=== PATIENT | female | born 1940 | race Caucasian/White ===

== ENCOUNTER 2021-03-31 11:01 | Outpatient (REF) | payer MEDICARE, OTHER, SELFPAY ==
[2021-03-31 14:16] LABS: Alanine Aminotransferase 13 U/L (0-31); Aspartate Amino Transferase 17 U/L (5-31); Cholesterol 135 mg/dL; HDL Cholesterol 47 mg/dL; LDL Cholesterol Calculated 67 mg/dl; Triglycerides 107 mg/dL
== END 2021-03-31 11:02 | disposition home or self-care (01) ==
LOC: HO.HMGCLDS 11:01
PROVIDERS: PCP Internal Medicine; Visit Provider Internal Medicine Cardiovascular Disease
DX: E78.5 Hyperlipidemia, unspecified (principal)
CPT/HCPCS: 36415; 80061; 84450; 84460

== ENCOUNTER 2021-04-17 09:12 | Outpatient (REF) | payer MEDICARE, OTHER, SELFPAY ==
[2021-04-17 12:31] LABS: Hematocrit 33.4 % (37.0-47.0); Hemoglobin 10.4 g/dl (12.0-16.0); Mean Corpuscular HGB Conc 31.1 g/dl (31.0-35.0); Mean Corpuscular Hemoglobin 27.2 pg (27.0-33.0); Mean Corpuscular Volume 87.4 fL (80.0-98.0); Red Blood Count 3.82 X10*6/uL (4.20-5.50); Red Cell Distribution Width 15.9 % (11.0-16.0); White Blood Count 26.1 X10*3/uL (4.8-10.8)
[2021-04-17 12:49] LABS: Alanine Aminotransferase 14 U/L (0-31); Albumin Level 4.6 g/dL (3.5-5.0); Alkaline Phosphatase 79 U/L (39-117); Anion Gap 15 (12-20); Aspartate Amino Transferase 18 U/L (5-31); Bilirubin Total 0.5 mg/dL (0.0-1.0); Blood Urea Nitrogen 44 mg/dL (9-16); C Reactive Protein 0.16 mg/dL (< or = 0.50); Calcium 9.3 mg/dL (8.4-10.2); Carbon Dioxide 20 mmol/L (22-29); Chloride 114 mmol/L (96-108); Estimated Glomerular Filt Rate 26; Glucose Fasting 90 mg/dL (60-99); Potassium 4.6 mmol/L (3.3-5.1); Sodium 144 mmol/L (135-145); Total Protein 7.7 g/dL (6.5-8.0)
[2021-04-17 12:51] LABS: Platelet Count 75 X10*3/uL (160-400)
[2021-04-17 13:06] LABS: TSH reflex Free T4 3.52 uIU/mL (0.32-4.0)
== END 2021-04-17 09:13 | disposition home or self-care (01) ==
LOC: HO.HMGCLDS 09:12
PROVIDERS: PCP Internal Medicine; Visit Provider Internal Medicine
DX: I25.10 Atherosclerotic heart disease of native coronary artery without angina pectoris (principal); I63.9 Cerebral infarction, unspecified
CPT/HCPCS: 36415; 80053; 84443; 85027; 86140

== ENCOUNTER 2021-09-16 21:43 | Emergency (ER) | payer MEDICARE, OTHER, SELFPAY ==
--- NOTE | ~2021-09-16 | CT_ITS ---
EXAMINATION: CT ABDOMEN AND PELVIS WITHOUT CONTRAST CLINICAL INFORMATION: Right-sided abdominal pain COMPARISON: None TECHNIQUE: Multidetector volumetric imaging was performed from the superior aspect of the liver through the pubic symphysis. Sagittal and coronal reformatted images were obtained on the technologist's workstation. This CT examination was performed using dose optimization techniques as appropriate, variously including the following: *Automated exposure control *Adjustment of mA and/or kV according to patient size (this includes techniques or standardized protocols for targeted exams where dose is matched to indication/reason for exam; i.e. extremities or head) *Use of iterative reconstruction technique DLP: 553 mGy-cm FINDINGS: LUNG BASES: Mild subsegmental atelectasis. LIVER, GALLBLADDER, AND BILIARY TREE: The liver is normal in size, shape, and attenuation. No focal hepatic lesion or biliary ductal dilatation is present. Cholelithiasis is noted, without appreciable gallbladder wall thickening or surrounding inflammation. PANCREAS: Unremarkable. SPLEEN: Borderline enlarged. ADRENAL GLANDS: Diffusely thickened appearance bilaterally. KIDNEYS AND URETERS: There is a 3 mm calculus at the left ureterovesicular junction with mild hydroureteronephrosis and perinephric stranding. A few tiny scattered bilateral renal calculi are noted. No right-sided hydronephrosis. BLADDER: Unremarkable. GASTROINTESTINAL TRACT: Colonic diverticulosis is noted. The small and large bowel are otherwise unremarkable without evidence of obstruction or pericolonic inflammatory change. The appendix is unremarkable. No free fluid or free air is seen. ABDOMINAL WALL: No significant hernia is appreciated. LYMPH NODES: Normal. VASCULAR: There is atherosclerotic calcification along the aorta and iliac arteries. PELVIC VISCERA: Status post hysterectomy. OSSEOUS STRUCTURES: Degenerative changes are noted in the spine. There is grade 1 anterolisthesis of L4 on L5 which is favored to be chronic in this setting. CT/CT abdomen pelvis wo con IMPRESSION: 1. Left ureterovesicular junction calculus measuring 3 mm with mild hydroureteronephrosis. 2. Few scattered tiny bilateral renal calculi. 3. Cholelithiasis. 4. Mild splenomegaly.
[2021-09-16 22:09] VITALS: BP 159/88; PULSE 105; RESP 18; TEMP 36.9; O2SAT 100; BMI 24.6
[2021-09-16 22:54] VITALS: BP 174/68; PULSE 88; RESP 16; TEMP 36.8; O2SAT 97
--- NOTE | 2021-09-16 22:56 | ED.ABDPAIN ---
HPI - Abdominal Pain General Chief Complaint: Abdominal Pain Stated Complaint: abd pain Time Seen by Provider: 09/16/21 22:53 Source: patient and family (Spouse) Mode of arrival: ambulatory Limitations: no limitations History of Present Illness HPI narrative: 81 years old female came in for evaluation of abdominal pain. Abdominal pain started since yesterday described as generalized discomfort in the abdomen, patient unable to localize the pain, pain is not radiating, constant since yesterday, described as moderate 5/10, associated with nausea (patient cannot vomit), normal small bowel movement in the morning with passing gas, decrease appetite since this morning. No fever, no chills. 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 History of hysterectomy. Related Data Home Medications Medication Instructions Recorded Confirmed allopurinol PO 04/15/21 08/20/21 amlodipine 5 mg tablet 5 mg PO DAILY 04/15/21 08/20/21 aspirin 81 mg tablet,delayed 81 mg PO DAILY 04/15/21 08/20/21 release hydroxychloroquine [Plaquenil] PO 04/15/21 08/20/21 Previous Rx's Medication Instructions Recorded transport wheelchair #1 ea 06/10/21 atorvastatin 40 mg tablet 40 mg PO DAILY #90 tab 07/03/21 rollator #1 ea 07/09/21 gabapentin 100 mg capsule 100 mg PO BEDTIME #90 cap 08/20/21 Allergies Allergy/AdvReac Type Severity Reaction Status Date / Time prochlorperazine Allergy Severe paralyzed Verified 08/20/21 13:27 [From Compazine] Review of Systems Review of Systems All other systems are reviewed and are negative Constitutional: Reports as per HPI and Reports no additional constitutional complaints Eyes: Reports as per HPI and Reports no additional eye complaints Reports system reviewed and no additional complaints, except as documented Cardiovascular: Reports as per HPI and Reports no additional cardiovascular complaints Respiratory: Reports as per HPI and Reports no additional respiratory complaints Gastrointestinal: Reports as per HPI and Reports no additional gastrointestinal complaints Genitourinary: Reports no additional female genitourinary complaints Musculoskeletal: Reports no additional musculoskeletal complaints Skin/Breast: Reports system reviewed and no additional complaints, except as docu Psychiatric: Reports no additional psychiatric complaints Endocrine: Reports no additional endocrine complaints Hematologic/Lymphatic: Reports no additional hematologic/lymphatic complaints Allergic/Immunologic: Reports no additional allergic/immunologic complaints Reports system reviewed and no additional complaints, except as documented and Reports Abnormal speech present [facility] Past Medical History Medical History Annual physical exam Anxiety Arthritis CAD (coronary artery disease) Callus of foot Carotid arterial disease CKD (chronic kidney disease) stage 3, GFR 30-59 ml/min [place] of foot CVA (cerebral vascular accident) Elevated WBC count HTN (hypertension) Hyperlipidemia Normal breast exam Pacemaker Rotator cuff arthropathy of right shoulder Shoulder pain, left Skin cancer Surgical History H/O: hysterectomy Family History Family History Father No problems noted. Mother Breast cancer Maternal Aunt Breast cancer Social History Social History Household Members Other:: , daughter in [place] Housing: House Alcohol intake: never Patient Tobacco Use Status: Never used Tobacco e-Cigarette/Vaping Use: Never Used Use of substances other than those prescribed or required for medical reasons: No Advance Directives: No Current occupational status: retired Physical Exam ED Vital Signs: Vital Signs - 24 hr 09/16/21 22:09 09/16/21 22:54 Temperature 98.5 F 98.2 F Pulse Rate 105 H 88 Respiratory Rate 18 16 Blood Pressure 159/88 H 174/68 H Pulse Oximetry 100 97 BMI result Body Mass Index 24.6 Vital signs have been reviewed as appeared to be correct. Blood pressure normal. Heart rate elevated. Respiration rate normal. Temperature normal. Oxygen saturation normal. Appearance: Alert. Oriented X3. No acute distress. Head: Normal external exam. Normocephalic. Atraumatic. No [place] signs noted. No raccoon eyes noted Eyes: PERRLA. EOMI. Conjunctiva and sclera normal. Eyelids normal. ENT: TM's Normal. Pharynx normal. Uvula midline. Moist mucous membranes. No trismus noted. No drooling noted. No muffled voice noted. Neck: Normal inspection. Neck supple. FROM. No adenopathy. Thyroid Normal. No meningeal signs. No neck mass noted. CVS: Normal heart rate and rhythm. Heart sound normal. No murmurs noted. Pulses normal throughout. Respiratory: No respiratory distress. Painless inspiration. Breath sounds normal. No wheezes/rales/rhonchi noted. Chest nontender. No accessory muscle usage noted or decreased air movement noted. Abdomen: Soft, right-sided tenderness with no rebound tenderness, no guarding Bowel sounds normal in all 4 quadrants. No distention noted. No organomegaly noted. No visible injury noted. Back: No CVA tenderness. Full range of motion noted. Skin: Skin warm and dry. Normal skin color. Normal skin turgor. No rashes/lesions/lacerations noted. Extremities: No lower extremity edema. Extremities exhibit normal range of motion. Extremities nontender. Neuro: Oriented X 3. Cranial nerve exam: II-XII are grossly intact No motor deficit. No sensory deficit. Reflexes normal. Course Course Course Narrative: Assessment and plan. 81-year-old female came in for evaluation of abdominal pain since yesterday, 1. Leukocytosis reportedly, patient had a history of elevated WBCs, patient had previous evaluation by dietitian research, patient had bone marrow biopsy and according to the patient history the leukocytosis was attributed to severe arthritis. Patient is refusing to stay in the hospital for further evaluation by our dietitian research but willing to follow-up as an outpatient, we will provide with Dr. Jansen's info to follow up with. Reviewing PCP note patient declined dietitian research referral in the past. 2. Left UVJ 3 mm stone again patient declined admission and would like to follow-up with urologist as an outpatient. UA is not revealing infection, No need for antibiotic at this point. MDM - Abdominal Pain Lab Data Attestation: I reviewed the patient's lab results. Result diagrams: 09/16/21 23:04 09/16/21 23:04 Labs: Lab Results 09/16/21 09/16/21 09/16/21 Range/Units 23:04 23:04 23:04 WBC 28.8 H (4.8-10.8) X10*3/uL RBC 3.52 L (4.20-5.50) X10*6/uL Hgb 9.5 L (12.0-16.0) g/dl Hct 30.5 L (37.0-47.0) % MCV 86.6 (80.0-98.0) fL MCH 27.0 (27.0-33.0) pg MCHC 31.1 (31.0-35.0) g/dl RDW 15.7 (11.0-16.0) % Plt Count 42 L D (160-400) X10*3/uL MPV TNP Immature Gran % (Auto) 3.8 H (0.0-0.4) % Neut % (Auto) 73.0 (45-73) % Lymph % (Auto) 5.2 L (20-40) % [place] % (Auto) 17.7 H (2-11) % Eos % (Auto) 0.0 (0-4) % Baso % (Auto) 0.3 (0-2) % Lymph # (Auto) 1.5 (1.2-4.9) X10*3/uL [place] # (Auto) 5.1 H (0.1-1.2) X10*3/uL Eos # (Auto) 0.0 (0.0-0.4) X10*3/uL Baso # (Auto) 0.1 (0.0-0.2) X10*3/uL Abs Immat Gran (auto) 1.10 H (0.00-0.03) X10*3/uL Absolute Neuts (auto) 21.0 H (2.0-8.3) x10*3/uL Absolute Nucleated RBC 0.000 (0.0-0.012) X10*3/uL Nucleated RBC % (auto) 0.0 (0.0-0.2) /100WBC Smear Tech's Comments VERIFIED Sodium 137 (135-145) mmol/L Potassium 5.5 H (3.3-5.1) mmol/L Chloride 110 H (96-108) mmol/L Carbon Dioxide 15 L (22-29) mmol/L Anion Gap 18 (12-20) BUN 33 H (9-16) mg/dL Creatinine 2.40 H (0.5-1.4) mg/dL Estim Creat Clear Calc 14.1 Estimated GFR 19 Random Glucose 148 H (60-115) mg/dL Calcium 9.2 (8.4-10.2) mg/dL Total Bilirubin 0.4 (0.0-1.0) mg/dL Direct Bilirubin < 0.2 (0.0-0.5) mg/dL AST 22 (5-31) U/L ALT 10 (0-31) U/L Alkaline Phosphatase 72 (39-117) U/L Troponin I High Sens (<3.5-17.0) ng/L Total Protein 7.8 (6.5-8.0) g/dL Albumin 4.4 (3.5-5.0) g/dL Lipase 37 (8-78) U/L Urine Color YELLOW Urine Appearance CLEAR Urine pH 5.5 (5.0-8.0) Ur Specific [place] 1.025 (1.005-1.025) Urine Protein 2+ H (NEG-TRACE) MG/DL Urine Glucose (UA) NEG (NEG) MG/DL Urine Ketones NEG (NEG) MG/DL Urine Blood 3+ H (NEG) Urine Nitrite NEG (NEG) Ur Leukocyte Esterase NEG (NEG) Urine RBC 5-9 H (0) /HPF Urine WBC 1-4 (0-4) /HPF Ur Squamous Epith Cells TRACE /LPF Urine Bacteria NONE /LPF Granular Casts 0-2 /LPF 09/16/21 Range/Units 23:04 WBC (4.8-10.8) X10*3/uL RBC (4.20-5.50) X10*6/uL Hgb (12.0-16.0) g/dl Hct (37.0-47.0) % MCV (80.0-98.0) fL MCH (27.0-33.0) pg MCHC (31.0-35.0) g/dl RDW (11.0-16.0) % Plt Count (160-400) X10*3/uL MPV Immature Gran % (Auto) (0.0-0.4) % Neut % (Auto) (45-73) % Lymph % (Auto) (20-40) % [place] % (Auto) (2-11) % Eos % (Auto) (0-4) % Baso % (Auto) (0-2) % Lymph # (Auto) (1.2-4.9) X10*3/uL [place] # (Auto) (0.1-1.2) X10*3/uL Eos # (Auto) (0.0-0.4) X10*3/uL Baso # (Auto) (0.0-0.2) X10*3/uL Abs Immat Gran (auto) (0.00-0.03) X10*3/uL Absolute Neuts (auto) (2.0-8.3) x10*3/uL Absolute Nucleated RBC (0.0-0.012) X10*3/uL Nucleated RBC % (auto) (0.0-0.2) /100WBC Smear Tech's Comments Sodium (135-145) mmol/L Potassium (3.3-5.1) mmol/L Chloride (96-108) mmol/L Carbon Dioxide (22-29) mmol/L Anion Gap (12-20) BUN (9-16) mg/dL Creatinine (0.5-1.4) mg/dL Estim Creat Clear Calc Estimated GFR Random Glucose (60-115) mg/dL Calcium (8.4-10.2) mg/dL Total Bilirubin (0.0-1.0) mg/dL Direct Bilirubin (0.0-0.5) mg/dL AST (5-31) U/L ALT (0-31) U/L Alkaline Phosphatase (39-117) U/L Troponin I High Sens 7.2 (<3.5-17.0) ng/L Total Protein (6.5-8.0) g/dL Albumin (3.5-5.0) g/dL Lipase (8-78) U/L Urine Color Urine Appearance Urine pH (5.0-8.0) Ur Specific [place] (1.005-1.025) Urine Protein (NEG-TRACE) MG/DL Urine Glucose (UA) (NEG) MG/DL Urine Ketones (NEG) MG/DL Urine Blood (NEG) Urine Nitrite (NEG) Ur Leukocyte Esterase (NEG) Urine RBC (0) /HPF Urine WBC (0-4) /HPF Ur Squamous Epith Cells /LPF Urine Bacteria /LPF Granular Casts /LPF Imaging Data CT scan - abdomen: Attestation: I personally reviewed and interpreted this imaging study as follows: Radiologist's impression: 1.? Left ureterovesicular junction calculus measuring 3 mm with mild hydroureteronephrosis. 2.? Few scattered tiny bilateral renal calculi. 3.? Cholelithiasis. 4.? Mild splenomegaly. Discharge Plan Discharge Clinical Impression: Leukocytosis, Calculus of distal left ureter Patient Disposition: Home, Self-Care Instructions: Ureteral Stones (ED), Leukocytosis (ED) Prescriptions: No Action (DME) transport wheelchair See Rx Instructions .Route .MEDSUPPLY Qty: 1 0RF Rx Instructions: As directed atorvastatin 40 mg tablet 40 mg PO DAILY Qty: 90 3RF (DME) rollator See Rx Instructions .Route .MEDSUPPLY Qty: 1 0RF Rx Instructions: Rollator with left arm platform support hydroxychloroquine [Plaquenil] PO 0RF aspirin 81 mg tablet,delayed release (DR/EC) 81 mg PO DAILY 0RF amlodipine 5 mg tablet 5 mg PO DAILY 0RF allopurinol PO 0RF gabapentin 100 mg capsule 100 mg PO BEDTIME Qty: 90 3RF Referrals: Mary Kay Mallory MD [Primary Care Provider] - Robin Jansen MD [Physician] - Humble Orlando MD [Physician] -
[2021-09-16 23:11] LABS: Basophils Percent Auto 0.3 % (0-2); Hematocrit 30.5 % (37.0-47.0); Hemoglobin 9.5 g/dl (12.0-16.0); Mean Corpuscular HGB Conc 31.1 g/dl (31.0-35.0); PLT ABN DIST 1; Red Cell Distribution Width 15.7 % (11.0-16.0); SCAN SMEAR FLAG 1
[2021-09-16 23:12] LABS: Appearance Urine CLEAR; Color Urine YELLOW; Glucose Urine UA NEG (NEG); Leukocyte Esterase Urine NEG (NEG); Nitrite Urine NEG (NEG); PH 5.5 (5.0-8.0); Specific Gravity - Urine 1.025 (1.005-1.025); UACC Culture Trigger NO; Urine Blood 3+ (NEG); Urine Ketones NEG (NEG); Urine Protein 2+ MG/DL (NEG-TRACE)
[2021-09-16 23:13] LABS: Basophils Absolute Auto 0.1 X10*3/uL (0.0-0.2); Imm Gran Pct Auto 3.8 % (0.0-0.4); Lymphocytes Absolute Auto 1.5 X10*3/uL (1.2-4.9); Lymphocytes Percent Auto 5.2 % (20-40); MANUAL DIFF FLAG SCAN; Mean Corpuscular Volume 86.6 fL (80.0-98.0); Monocytes Absolute Auto 5.1 X10*3/uL (0.1-1.2); Monocytes Percent Auto 17.7 % (2-11); Red Blood Count 3.52 X10*6/uL (4.20-5.50); White Blood Count 28.8 X10*3/uL (4.8-10.8)
[2021-09-16 23:18] LABS: Squamous Epithelial Cell Urine TRACE /LPF
[2021-09-16 23:19] LABS: Granular Casts Urine 0-2 /LPF
--- NOTE | 2021-09-16 23:26 | PC.NURSE ---
pt a&ox3, vss, c/o abd pain starting last night, pain is now a 3/10. labs drawn, results pending. no new orders at this time.
[2021-09-16 23:30] LABS: Platelet Count 42 X10*3/uL (160-400); SLIDE REVIEW VERIFIED
[2021-09-16 23:34] LABS: Alanine Aminotransferase 10 U/L (0-31); Albumin Level 4.4 g/dL (3.5-5.0); Alkaline Phosphatase 72 U/L (39-117); Anion Gap 18 (12-20); Aspartate Amino Transferase 22 U/L (5-31); Bilirubin Direct < 0.2 mg/dL (0.0-0.5); Bilirubin Total 0.4 mg/dL (0.0-1.0); Blood Urea Nitrogen 33 mg/dL (9-16); Calcium 9.2 mg/dL (8.4-10.2); Carbon Dioxide 15 mmol/L (22-29); Chloride 110 mmol/L (96-108); Creatinine Clr Calc Pharmacy 14.1; Estimated Glomerular Filt Rate 19; Glucose Random 148 mg/dL (60-115); Lipase 37 U/L (8-78); Potassium 5.5 mmol/L (3.3-5.1); Sodium 137 mmol/L (135-145)
[2021-09-16 23:38] LABS: Troponin-I High Sensitivity 7.2 ng/L (<3.5-17.0)
[2021-09-16 23:57] LABS: Total Protein 7.8 g/dL (6.5-8.0)
[2021-09-17 01:31] VITALS: BP 151/75; PULSE 95; RESP 18; O2SAT 96
== END 2021-09-17 02:23 | disposition home or self-care (01) ==
PROVIDERS: Emergency Provider Emergency Medicine; PCP Internal Medicine
DX: N20.1 Calculus of ureter (principal); D72.829 Elevated white blood cell count, unspecified; I12.9 Hypertensive chronic kidney disease with stage 1 through stage 4 chronic kidney disease, or unspecified chronic kidney disease; N18.9 Chronic kidney disease, unspecified; I69.354 Hemiplegia and hemiparesis following cerebral infarction affecting left non-dominant side
CPT/HCPCS: 36415; 74176; 80048; 80076; 81001; 83690; 84484; 85025; 99284

== ENCOUNTER → 2021-09-29 11:21 | Outpatient (BNVA) | payer MEDICARE, OTHER, SELFPAY | PROVIDERS: PCP Internal Medicine | DX: N13.2 Hydronephrosis with renal and ureteral calculous obstruction (principal) | CPT/HCPCS: 99202 ==

== ENCOUNTER → 2021-10-08 10:00 | Outpatient (BNV) | payer MEDICARE, OTHER, MEDICAID, SELFPAY | PROVIDERS: Visit Provider Internal Medicine Medical Oncology | DX: D72.829 Elevated white blood cell count, unspecified (principal) | CPT/HCPCS: 99204; 99213; 99214 ==

== ENCOUNTER 2022-02-03 12:26 | Outpatient (REF) | payer OTHER, SELFPAY ==
--- NOTE | ~2022-02-03 | MM_ITS ---
EXAMINATION: MM SCREENING DIGITAL BREAST TOMOSYNTHESIS, BILATERAL CLINICAL INFORMATION: Screening. Asymptomatic. The lifetime risk of breast cancer based on the Tyrer-Cuzick Model is 3%. COMPARISON: Mammography: None TECHNIQUE: Digital breast tomosynthesis is performed in both the craniocaudal and mediolateral oblique views along with computer-aided detection (CAD). Synthesized 2D images are generated from the tomosynthesis. Exaggerated left craniocaudal view also performed. FINDINGS: There are scattered areas of fibroglandular density (ACR BI-RADS breast composition Category b). There are no significant masses, abnormal calcifications, or other abnormalities. MM/MM tomosynthesis screening BI IMPRESSION: No mammographic evidence of malignancy. ASSESSMENT: BI-RADS 1: Negative RECOMMENDATION: Routine annual mammography screening. This patient's information was entered into a reminder system with a target due date for their next mammogram.
== END 2022-02-03 12:27 | disposition home or self-care (01) ==
LOC: HO.MAMMO 12:26
PROVIDERS: Visit Provider Internal Medicine
DX: Z12.31 Encounter for screening mammogram for malignant neoplasm of breast (principal)
CPT/HCPCS: 77063; 77067

== ENCOUNTER 2022-03-02 14:00 | Outpatient (REF) | payer OTHER, SELFPAY ==
--- NOTE | ~2022-03-02 | US_ITS ---
EXAMINATION: US RETROPERITONEAL LIMITED (RENAL ONLY) CLINICAL INFORMATION: Calculus of kidney. COMPARISON: CT abdomen and pelvis 09/17/2021. TECHNIQUE: Real-time imaging of the kidneys. FINDINGS: RIGHT KIDNEY: 9.9 x 4.8 x 5.1 cm (SAG x AP x TRV). The kidney is normal in size. There is renal cortical thinning and increased echogenicity. There is a small 6 mm cyst in the upper pole. No renal calculi or hydronephrosis. LEFT KIDNEY: 8.7 x 4.0 x 4.0 cm (SAG x AP x TRV). The left kidney is smaller than the right. There is left renal cortical thinning and increased echogenicity. Renal stone seen by CT are not appreciated by ultrasound. There is question of mild left hydronephrosis. The spleen appears prominent. US/US renal BI IMPRESSION: Bilateral renal cortical thinning and increased echogenicity suggestive of medical renal disease. The left kidney is small and there is question of mild left hydronephrosis.. Previously identified left renal stones seen by CT are not appreciated.
== END 2022-03-02 14:01 | disposition home or self-care (01) ==
LOC: HO.US 14:00
DX: N20.0 Calculus of kidney (principal)
CPT/HCPCS: 76775

== ENCOUNTER 2022-04-01 16:07 | Outpatient (REF) | payer OTHER, SELFPAY | END 2022-04-01 16:08 | disposition home or self-care (01) | LOC: HO.LAB 16:07 | PROVIDERS: Visit Provider Nurse Practitioner Family | DX: N39.0 Urinary tract infection, site not specified (principal); R31.29 Other microscopic hematuria; Z86.73 Personal history of transient ischemic attack (TIA), and cerebral infarction without residual deficits | CPT/HCPCS: 87086; 99212 ==

== ENCOUNTER 2022-04-03 09:42 | Outpatient (REF) | payer OTHER, SELFPAY ==
[2022-04-03 11:10] LABS: Basophils Absolute Auto 0.1 X10*3/uL (0.0-0.2); Basophils Percent Auto 0.5 % (0-2); Eosinophils Absolute Auto 0.6 X10*3/uL (0.0-0.4); Eosinophils Percent Auto 2.1 % (0-4); Hematocrit 31.9 % (37.0-47.0); Hemoglobin 9.8 g/dl (12.0-16.0); Imm Gran Abs Auto 0.75 X10*3/uL (0.00-0.03); Imm Gran Pct Auto 2.8 % (0.0-0.4); Lymphocytes Absolute Auto 2.9 X10*3/uL (1.2-4.9); Lymphocytes Percent Auto 10.8 % (20-40); MANUAL DIFF FLAG SCAN; Mean Corpuscular HGB Conc 30.7 g/dl (31.0-35.0); Mean Corpuscular Hemoglobin 26.5 pg (27.0-33.0); Mean Corpuscular Volume 86.2 fL (80.0-98.0); Monocytes Absolute Auto 5.3 X10*3/uL (0.1-1.2); Monocytes Percent Auto 19.5 % (2-11); Neutrophils Absolute Auto 17.3 x10*3/uL (2.0-8.3); Neutrophils Percent Auto 64.3 % (45-73); PLT CLUMP 1; Red Cell Distribution Width 15.5 % (11.0-16.0); SCAN SMEAR FLAG 1
[2022-04-03 11:22] LABS: Alanine Aminotransferase 6 U/L (0-31); Albumin Level 4.7 g/dL (3.5-5.0); Alkaline Phosphatase 84 U/L (39-117); Anion Gap 15 (12-20); Aspartate Amino Transferase 12 U/L (5-31); Bilirubin Total 0.4 mg/dL (0.0-1.0); Blood Urea Nitrogen 32 mg/dL (9-16); Calcium 9.1 mg/dL (8.4-10.2); Carbon Dioxide 19 mmol/L (22-29); Chloride 112 mmol/L (96-108); Estimated Glomerular Filt Rate 21; Glucose Random 97 mg/dL (60-115); Potassium 4.2 mmol/L (3.3-5.1); Sodium 142 mmol/L (135-145); Total Protein 7.9 g/dL (6.5-8.0)
[2022-04-03 12:50] LABS: Platelet Count 88 X10*3/uL (160-400)
[2022-04-03 12:51] LABS: SLIDE REVIEW VERIFIED
== END 2022-04-03 09:43 | disposition home or self-care (01) ==
LOC: HO.HMGCLDS 09:42
PROVIDERS: PCP Internal Medicine; Visit Provider Internal Medicine Medical Oncology
DX: D72.829 Elevated white blood cell count, unspecified (principal)
CPT/HCPCS: 36415; 80053; 85025

== ENCOUNTER 2022-04-27 13:40 | Inpatient (IN) | payer OTHER, MEDICAID, SELFPAY ==
--- NOTE | ~2022-04-27 | FL_ITS ---
EXAMINATION: XR FLUOROSCOPY WITH IMAGES CLINICAL INFORMATION: Status post hysterectomy. Right hydroureteronephrosis and ureteral stones. COMPARISON: None. TECHNIQUE: Fluoroscopy Supervised By: Dr. Darion Kate. Fluoroscopy Time: 41.1 seconds. Cumulative Dose: 9.30 mGy. Images: 3. FINDINGS: There are 3 digital images obtained of right abdomen. The first images reveal a guidewire in the right kidney pelvis and proximal ureter. The subsequent image reveals internal ureteral stent with its proximal end in the kidney pelvis. FL/FL guidance in OR IMPRESSION: Fluoroscopy was provided to referring physician for right internal ureteral stent placement.
--- NOTE | ~2022-04-27 | CT_ITS ---
EXAMINATION: CT ABDOMEN AND PELVIS WITHOUT CONTRAST CLINICAL INFORMATION: Right lower quadrant pain COMPARISON: CT abdomen and pelvis 09/17/2021 TECHNIQUE: Multidetector volumetric imaging was performed from the superior aspect of the liver through the pubic symphysis. Sagittal and coronal reformatted images were obtained on the technologist's workstation. This CT examination was performed using dose optimization techniques as appropriate, variously including the following: *Automated exposure control *Adjustment of mA and/or kV according to patient size (this includes techniques or standardized protocols for targeted exams where dose is matched to indication/reason for exam; i.e. extremities or head) *Use of iterative reconstruction technique DLP: 503 mGy-cm FINDINGS: LUNG BASES: Mild bibasilar subsegmental atelectasis and/or scarring. Pacer wires in the right atrium and right ventricle. Surgical clips at the GE junction. LIVER, GALLBLADDER, AND BILIARY TREE: The liver is normal in size, shape, and attenuation. No focal hepatic lesion or biliary ductal dilatation is present. Couple small layering calcified gallstones, present previously. No gallbladder wall thickening or pericholecystic inflammatory change. PANCREAS: Unremarkable. SPLEEN: Mildly enlarged measuring 13.4 cm in craniocaudal length, similar to prior. No splenic lesion. ADRENAL GLANDS: Mild thickening of the bilateral adrenal glands, unchanged. KIDNEYS AND URETERS: There are couple of [id number] stones in the right mid ureter just below the pelvic brim, largest 4 mm in size on coronal image 47. Slightly more distally in the ureter there is a 4 x 6 mm stone positioned several centimeters proximal to the UVJ on 6 axial image 57 and coronal image 56. Mild right hydroureteronephrosis and mild perinephric fat stranding. Punctate nonobstructing right lower pole and possibly left upper pole calculi. Mild left renal atrophy. No renal lesion identified. BLADDER: Decompressed, but grossly unremarkable. GASTROINTESTINAL TRACT: Status post prior Nat fundoplication. Sigmoid diverticulosis. No evidence of acute diverticulitis. No dilated bowel loops or bowel wall thickening. Normal appendix. No free air or ascites. ABDOMINAL WALL: Small fat-containing umbilical hernia. LYMPH NODES: Borderline enlarged right periceliac lymph node measuring 1 cm in short axis, unchanged and nonspecific. No other lymphadenopathy by size criteria. VASCULAR: Moderate vascular calcifications. Normal caliber abdominal aorta. PELVIC VISCERA: Status post hysterectomy. OSSEOUS STRUCTURES: No acute fracture or suspicious osseous lesion. Mild to moderate multilevel degenerative disc disease. Grade 1 anterolisthesis at L4-L5 secondary to facet arthrosis. CT/CT abdomen pelvis wo IV con IMPRESSION: 1. Mild right hydroureteronephrosis with a couple of fhyr-ar-ibeg stones in the right mid ureter, largest 4 mm in size and a more distal 4 x 6 mm stone located several centimeters proximal to the UVJ. 2. No evidence of acute appendicitis or other acute intra-abdominal process. 3. Cholelithiasis. 4. Mild splenomegaly. 5. Additional chronic findings, as described.
[2022-04-27 13:52] VITALS: BP 148/79; PULSE 113; RESP 17; TEMP 36.6; O2SAT 98; BMI 26.6
--- NOTE | 2022-04-27 13:54 | ED_ITS ---
HPI - Abdominal Pain General Chief Complaint: Abdominal Pain <SALVADOR Ko - Last Filed: 04/27/22 13:58> Stated Complaint: R flank pain? <SALVADOR Ko - Last Filed: 04/27/22 13:58> Time Seen by Provider: 04/27/22 16:00 <SALVADOR Ko - Last Filed: 04/27/22 13:58> Source: patient <Amrita Estevez NP - Last Filed: 04/27/22 17:47> Mode of arrival: ambulatory <Amrita Estevez NP - Last Filed: 04/27/22 17:47> Limitations: no limitations <Amrita Estevez NP - Last Filed: 04/27/22 17:47> History of Present Illness HPI narrative: 82-year-old female presents with 1 day of right lower quadrant abdominal pain, right flank pain, and an overall feeling of unwellness. She does have a history of thrombocytopenia and is followed by Dr. Jansen, and has had multiple kidney stones in the past with nephrolithiasis. Patient states to feel dry, and is having a difficult time moving because of the pain. <Amrita Estevez NP - Last Filed: 04/27/22 17:47> MD elicited complaint: abdominal pain and flank pain <Amrita Estevez NP - Last Filed: 04/27/22 1 7:47> Pertinent past history: kidney stones <Amrita Estevez NP - Last Filed: 04/27/22 17:47> Onset (ago): day(s) (1) <Amrita Estevez NP - Last Filed: 04/27/22 17:47> Pain Consistency: constant <Amrita Estevez NP - Last Filed: 04/27/22 17:47> Location: RLQ and R flank <Amrita Estevez NP - Last Filed: 04/27/22 17:47> Severity: moderate <Amrita Estevez NP - Last Filed: 04/27/22 17:47> Pain scale (0-10): 6 <Amrita Estevez NP - Last Filed: 04/27/22 17:47> Quality: cramping, stabbing and aching <Amrita Estevez NP - Last Filed: 04/27/22 17:47> Radiation: RLQ and R flank <Amrita Estevez NP - Last Filed: 04/27/22 17:47> Migration to: no migration <Amrita Estevez NP - Last Filed: 04/27/22 17:47> Exacerbating factors: movement <Amrita Estevez CEMENTING BULK MATERIAL OPERATOR - Last Filed: 04/27/22 17:47> Relieving factors: nothing <Amrita Estevez CEMENTING BULK MATERIAL OPERATOR - Last Filed: 04/27/22 17:47> Context: history of similar episodes <Amrita Estevez NP - Last Filed: 04/27/22 17:47> Associated symptoms: nausea <Amrita Estevez NP - Last Filed: 04/27/22 17:47> Related Data Home Medications: Home Medications Medication Instructions Recorded Confirmed amlodipine 5 mg tablet 5 mg PO DAILY 04/15/21 01/22/22 aspirin 81 mg tablet,delayed 81 mg PO DAILY 04/15/21 01/22/22 release bromfenac 0.07 % eye drops 1 drp ophthalmic-Right BID 09/29/21 01/22/22 (Prolensa) allopurinol 100 mg tablet 0.5 tab PO DAILY 10/06/21 01/22/22 Previous Rx's Medication Instructions Recorded transport wheelchair #1 ea 06/10/21 atorvastatin 40 mg tablet 40 mg PO DAILY #90 tabs 07/03/21 rollator #1 ea 07/09/21 miscellaneous medical supply 1 ea miscellaneous .QD BED RAILING 10/16/21 #1 ea miscellaneous medical supply 1 ea miscellaneous .qd #1 ea 11/18/21 cephalexin 500 mg capsule 500 mg PO QID 10 days #40 caps 11/30/21 sulfamethoxazole 800 1 tab PO Q12H 10 days #20 tabs 11/30/21 mg-trimethoprim 160 mg tablet (Bactrim DS) electric scooter #1 ea 12/10/21 triamcinolone acetonide 0.1 % 1 appl topical DAILY #80 grams 12/24/21 topical ointment hydroxychloroquine 200 mg tablet 200 mg PO DAILY #90 tabs 01/27/22 colchicine 0.6 mg capsule See Rx Instructions PO .COMPLEX #3 03/05/22 caps prednisone 20 mg tablet 20 mg PO DAILY 5 days #5 tabs 03/05/22 <SALVADOR Ko - Last Filed: 04/27/22 13:58> Allergies/Adverse Reactions: Allergies Allergy/AdvReac Type Severity Reaction Status Date / Time prochlorperazine Allergy Severe paralyzed Verified 04/01/22 15:46 [From Compazine] <SALVADOR Ko - Last Filed: 04/27/22 13:58> Review of Systems Review of Systems Constitutional: No Fever, No Chills Cardiovascular: No Chest Pain, No SOB Respiratory: No Cough, No Dyspnea Gastrointestinal: Positive Nausea, No Vomiting, No Diarrhea, positive right lower quadrant abdominal Pain, positive right flank pain Genitourinary: No Dysuria, No Hematuria Musculoskeletal: No joint pain, No Myalgias, No Joint Swelling Skin: No Skin lacerations, No rash Neuro: No Weakness, No Numbness, No Paresthesias, No Dizziness, No Headache <Amrita Estevez NP - Last Filed: 04/27/22 17:47> Yes all other systems are reviewed and are negative <Amrita Estevez NP - Last Filed: 04/27/22 17:47> [facility] Past Medical History Attestation statement: The following information was validated with the patient. <Amrita Estevez NP - Last Filed: 04/27/22 17:47> Source: old records reviewed <Amrita Estevez NP - Last Filed: 04/27/22 17:47> Medical History: Medical History Annual physical exam Anxiety Arthritis CAD (coronary artery disease) Callus of foot Carotid arterial disease CKD (chronic kidney disease) stage 3, GFR 30-59 ml/min [place] of foot CVA (cerebral vascular accident) Elevated WBC count History of kidney stones HTN (hypertension) Hyperlipidemia Normal breast exam Pacemaker Renal calculi Rotator cuff arthropathy of right shoulder Shoulder pain, left Skin cancer Ureteral tumor UTI (urinary tract infection) <SALVADOR Ko - Last Filed: 04/27/22 13:58> Surgical History: Surgical History H/O: hysterectomy <SALVADOR Ko - Last Filed: 04/27/22 13:58> Family History Family History: Family History Father No problems noted. Mother Breast cancer Maternal Aunt Breast cancer Sister Breast cancer Uterine cancer <SALVADOR Ko - Last Filed: 04/27/22 13:58> Social History Social History: Social History Household Members: Spouse Household Members Other:: , daughter in [place] Housing: House Are you a primary technical healthcare consultant to a significant other at home: No Do you presently have visiting nurse or other home services: No Alcohol intake: never Patient Tobacco Use Status: Never used Tobacco e-Cigarette/Vaping Use: Never Used Advance Directives: No Advance Directives Information Provided: Yes service: No Current occupational status: retired Cognitive needs: No Hearing needs: No Vision needs: Yes <SALVADOR Ko - Last Filed: 04/27/22 13:58> Physical Exam ED Vital Signs: Vital Signs - 24 hr 04/27/22 13:52 Temperature 98 F Pulse Rate 113 H Respiratory Rate 17 Blood Pressure 148/79 H Pulse Oximetry 98 Oxygen Delivery Method Room Air BMI result Body Mass Index 26.6 <SALVADOR Ko - Last Filed: 04/27/22 13:58> Vital Signs - 24 hr 04/27/22 13:52 Temperature 98 F Pulse Rate 113 H Respiratory Rate 17 Blood Pressure 148/79 H Pulse Oximetry 98 Oxygen Delivery Method Room Air BMI result Body Mass Index 26.6 <Amrita Estevez NP - Last Filed: 04/27/22 17:47> Appearance: Alert. Oriented X3. Moderate distress. Eyes: Pupils equal, round and reactive to light. Sclera nonicteric. ENT: Pharynx normal. Dry mucous membranes. Neck: Normal inspection. Neck supple. CVS: Tachycardic heart rate and rhythm. Respiratory: No respiratory distress. Breath sounds normal. Abdomen: Soft and right lower quadrant abdominal pain to palpation. Right-sided CVA tenderness. No rebound or rigidity. Skin: Skin warm and dry. Normal skin color. Normal skin turgor. Extremities: No lower extremity edema. Gait well-balanced well coordinated. Neuro: No motor deficit. No sensory deficit. Cranial nerves 2-12 intact. <Amrita Estevez NP - Last Filed: 04/27/22 17:47> Course Course Course Narrative: RME - 82 yo female with history of CVA w/ left sided hemiplegia, kidney stones, CKD baseline SCr 2.2-2.4, HTN, chronic thrombocytopenia, hx UTI, hx p acemaker, among other comorbidities presenting with acute onset of RLQ pain that started this morning along with nausea. Abd soft. Will get dry CT, labs and UA. <SALVADOR Ko - Last Filed: 04/27/22 13:58> RME - 82 yo female with history of CVA w/ left sided hemiplegia, kidney stones, CKD baseline SCr 2.2-2.4, HTN, chronic thrombocytopenia, hx UTI, hx pacemaker, among other comorbidities presenting with acute onset of RLQ pain that started this morning along with nausea. Abd soft. Will get dry CT, labs and UA. 82-year-old female presents with right lower quadrant and right flank pain. Does have a history of thrombocytopenia, followed by Dr. Jansen. Has a history of right-sided hemiplegia status post CVA, kidney stones with history of nephrolithiasis, CKD. Patient's physical exam shows exquisite right-sided te nderness to CVA palpation, right lower quadrant abdominal tenderness. CT scan pending. Labs indicate thrombocytopenia and elevated white count of 30.4, patient's baseline is 26. Urinalysis indicates leukocyte esterase and bacteria, no nitrites. Patient clinically presents of pyelonephritis, will wait for CT scan. Considering patient's discomfort, elevated heart rate while pain, will give L of fluids, 1 mg morphine, and Tylenol. 17:00 CT scan indicates multiple kidney stones and right hydronephrosis, no obstruction. Urinalysis positive for leukocyte esterase. Will start ceftriaxone 17:22 tiger text discussion with hospitalist. <Amrita Estevez NP - Last Filed: 04/27/22 17:47> Medical Decision Making Differential Diagnosis Differential Diagnoses: The differential diagnosis associated with the presentation includes <Amrita Estevez NP - Last Filed: 04/27/22 17:47> Kidney stone, hydronephrosis, pyelonephritis, appendicitis, colitis <Amrita Estevez NP - Last Filed: 04/27/22 17:47> Admission/Observation Consideration of admission/observation: Escalation of care including admission/observation considered <Amrita Estevez NP - Last Filed: 04/27/22 17:47> Plan is for admission <Amrita Estevez NP - Last Filed: 04/27/22 17:47> Consult Healthcare Provider Management of the patient was discussed with: Hospitalist <Amrita Estevez NP - Last Filed: 04/27/22 17:47> Lab Data MDM Lab Attestation statement: I reviewed the patient's lab results. <Amrita Estevez NP - Last Filed: 04/27/22 17:47> Result Diagrams: 04/27/22 13:59 04/27/22 13:59 <SALVADOR Ko - Last Filed: 04/27/22 13:58> Labs: Lab Results 04/27/22 04/27/22 04/27/22 Range/Units 13:59 13:59 16:26 WBC 30.4 H* (4.8-10.8) X10*3/uL RBC 3.63 L (4.20-5.50) X10*6/uL Hgb 9.6 L (12.0-16.0) g/dl Hct 31.0 L (37.0-47.0) % MCV 85.4 (80.0-98.0) fL MCH 26.4 L (27.0-33.0) pg MCHC 31.0 (31.0-35.0) g/dl RDW 15.6 (11.0-16.0) % Plt Count 76 L (160-400) X10*3/uL MPV 13.1 H (9.4-12.3) fL Immature Gran % (Auto) 4.3 H (0.0-0.4) % Neut % (Auto) 78.6 H (45-73) % Lymph % (Auto) 4.3 L (20-40) % [place] % (Auto) 12.1 H (2-11) % Eos % (Auto) 0.3 (0-4) % Baso % (Auto) 0.4 (0-2) % Lymph # (Auto) 1.3 (1.2-4.9) X10*3/uL [place] # (Auto) 3.7 H (0.1-1.2) X10*3/uL Eos # (Auto) 0.1 (0.0-0.4) X10*3/uL Baso # (Auto) 0.1 (0.0-0.2) X10*3/uL Abs Immat Gran (auto) 1.30 H (0.00-0.03) X10*3/uL Absolute Neuts (auto) 23.9 H (2.0-8.3) x10*3/uL Absolute Nucleated RBC 0.000 (0.0-0.012) X10*3/uL Nucleated RBC % (auto) 0.0 (0.0-0.2) /100WBC Smear Tech's Comments VERIFIED Sodium 139 (135-145) mmol/L Potassium 4.6 (3.3-5.1) mmol/L Chloride 112 H (96-108) mmol/L Carbon Dioxide 16 L (22-29) mmol/L Anion Gap 16 (12-20) BUN 37 H (9-16) mg/dL Creatinine 2.55 H (0.5-1.4) mg/dL Estim Creat Clear Calc 13.6 Estimated GFR 18 Random Glucose 160 H (60-115) mg/dL Lactic Acid (0.5-2.0) mmol/L Calcium 9.0 (8.4-10.2) mg/dL Magnesium 1.9 (1.6-2.6) mg/dL Total Bilirubin 0.5 (0.0-1.0) mg/dL Direct Bilirubin < 0.2 (0.0-0.5) mg/dL AST 15 (5-31) U/L ALT < 6 (0-31) U/L Alkaline Phosphatase 82 (39-117) U/L Total Protein 8.0 (6.5-8.0) g/dL Albumin 4.7 (3.5-5.0) g/dL Urine Color Yellow Urine Appearance Clear Urine pH 5.5 (5.0-9.0) Ur Specific [place] 1.015 (1.005-1.025) Urine Protein 300 (3+) H (Neg-Trace) mg/dL Urine Glucose (UA) 100 H (Negative) mg/dL Urine Ketones Negative (Negative) mg/dL Urine Blood Moderate (2+) H (Negative) Urine Nitrite Negative (Negative) Ur Leukocyte Esterase Moderate (2+) H (Negative) 04/27/22 Range/Units 16:40 WBC (4.8-10.8) X10*3/uL RBC (4.20-5.50) X10*6/uL Hgb (12.0-16.0) g/dl Hct (37.0-47.0) % MCV (80.0-98.0) fL MCH (27.0-33.0) pg MCHC (31.0-35.0) g/dl RDW (11.0-16.0) % Plt Count (160-400) X10*3/uL MPV (9.4-12.3) fL Immature Gran % (Auto) (0.0-0.4) % Neut % (Auto) (45-73) % Lymph % (Auto) (20-40) % [place] % (Auto) (2-11) % Eos % (Auto) (0-4) % Baso % (Auto) (0-2) % Lymph # (Auto) (1.2-4.9) X10*3/uL [place] # (Auto) (0.1-1.2) X10*3/uL Eos # (Auto) (0.0-0.4) X10*3/uL Baso # (Auto) (0.0-0.2) X10*3/uL Abs Immat Gran (auto) (0.00-0.03) X10*3/uL Absolute Neuts (auto) (2.0-8.3) x10*3/uL Absolute Nucleated RBC (0.0-0.012) X10*3/uL Nucleated RBC % (auto) (0.0-0.2) /100WBC Smear Tech's Comments Sodium (135-145) mmol/L Potassium (3.3-5.1) mmol/L Chloride (96-108) mmol/L Carbon Dioxide (22-29) mmol/L Anion Gap (12-20) BUN (9-16) mg/dL Creatinine (0.5-1.4) mg/dL Estim Creat Clear Calc Estimated GFR Random Glucose (60-115) mg/dL Lactic Acid 1.1 (0.5-2.0) mmol/L Calcium (8.4-10.2) mg/dL Magnesium (1.6-2.6) mg/dL Total Bilirubin (0.0-1.0) mg/dL Direct Bilirubin (0.0-0.5) mg/dL AST (5-31) U/L ALT (0-31) U/L Alkaline Phosphatase (39-117) U/L Total Protein (6.5-8.0) g/dL Albumin (3.5-5.0) g/dL Urine Color Urine Appearance Urine pH (5.0-9.0) Ur Specific [place] (1.005-1.025) Urine Protein (Neg-Trace) mg/dL Urine Glucose (UA) (Negative) mg/dL Urine Ketones (Negative) mg/dL Urine Blood (Negative) Urine Nitrite (Negative) Ur Leukocyte Esterase (Negative) <SALVADOR Ko - Last Filed: 04/27/22 13:58> Lab Results 04/27/22 04/27/22 04/27/22 Range/Units 13:59 13:59 16:26 WBC 30.4 H* (4.8-10.8) X10*3/uL RBC 3.63 L (4.20-5.50) X10*6/uL Hgb 9.6 L (12.0-16.0) g/dl Hct 31.0 L (37.0-47.0) % MCV 85.4 (80.0-98.0) fL MCH 26.4 L (27.0-33.0) pg MCHC 31.0 (31.0-35.0) g/dl RDW 15.6 (11.0-16.0) % Plt Count 76 L (160-400) X10*3/uL MPV 13.1 H (9.4-12.3) fL Immature Gran % (Auto) 4.3 H (0.0-0.4) % Neut % (Auto) 78.6 H (45-73) % Lymph % (Auto) 4.3 L (20-40) % [place] % (Auto) 12.1 H (2-11) % Eos % (Auto) 0.3 (0-4) % Baso % (Auto) 0.4 (0-2) % Lymph # (Auto) 1.3 (1.2-4.9) X10*3/uL [place] # (Auto) 3.7 H (0.1-1.2) X10*3/uL Eos # (Auto) 0.1 (0.0-0.4) X10*3/uL Baso # (Auto) 0.1 (0.0-0.2) X10*3/uL Abs Immat Gran (auto) 1.30 H (0.00-0.03) X10*3/uL Absolute Neuts (auto) 23.9 H (2.0-8.3) x10*3/uL Absolute Nucleated RBC 0.000 (0.0-0.012) X10*3/uL Nucleated RBC % (auto) 0.0 (0.0-0.2) /100WBC Smear Tech's Comments VERIFIED Sodium 139 (135-145) mmol/L Potassium 4.6 (3.3-5.1) mmol/L Chloride 112 H (96-108) mmol/L Carbon Dioxide 16 L (22-29) mmol/L Anion Gap 16 (12-20) BUN 37 H (9-16) mg/dL Creatinine 2.55 H (0.5-1.4) mg/dL Estim Creat Clear Calc 13.6 Estimated GFR 18 Random Glucose 160 H (60-115) mg/dL Lactic Acid (0.5-2.0) mmol/L Calcium 9.0 (8.4-10.2) mg/dL Magnesium 1.9 (1.6-2.6) mg/dL Total Bilirubin 0.5 (0.0-1.0) mg/dL Direct Bilirubin < 0.2 (0.0-0.5) mg/dL AST 15 (5-31) U/L ALT < 6 (0-31) U/L Alkaline Phosphatase 82 (39-117) U/L Total Protein 8.0 (6.5-8.0) g/dL Albumin 4.7 (3.5-5.0) g/dL Urine Color Yellow Urine Appearance Clear Urine pH 5.5 (5.0-9.0) Ur Specific [place] 1.015 (1.005-1.025) Urine Protein 300 (3+) H (Neg-Trace) mg/dL Urine Glucose (UA) 100 H (Negative) mg/dL Urine Ketones Negative (Negative) mg/dL Urine Blood Moderate (2+) H (Negative) Urine Nitrite Negative (Negative) Ur Leukocyte Esterase Moderate (2+) H (Negative) 04/27/22 Range/Units 16:40 WBC (4.8-10.8) X10*3/uL RBC (4.20-5.50) X10*6/uL Hgb (12.0-16.0) g/dl Hct (37.0-47.0) % MCV (80.0-98.0) fL MCH (27.0-33.0) pg MCHC (31.0-35.0) g/dl RDW (11.0-16.0) % Plt Count (160-400) X10*3/uL MPV (9.4-12.3) fL Immature Gran % (Auto) (0.0-0.4) % Neut % (Auto) (45-73) % Lymph % (Auto) (20-40) % [place] % (Auto) (2-11) % Eos % (Auto) (0-4) % Baso % (Auto) (0-2) % Lymph # (Auto) (1.2-4.9) X10*3/uL [place] # (Auto) (0.1-1.2) X10*3/uL Eos # (Auto) (0.0-0.4) X10*3/uL Baso # (Auto) (0.0-0.2) X10*3/uL Abs Immat Gran (auto) (0.00-0.03) X10*3/uL Absolute Neuts (auto) (2.0-8.3) x10*3/uL Absolute Nucleated RBC (0.0-0.012) X10*3/uL Nucleated RBC % (auto) (0.0-0.2) /100WBC Smear Tech's Comments Sodium (135-145) mmol/L Potassium (3.3-5.1) mmol/L Chloride (96-108) mmol/L Carbon Dioxide (22-29) mmol/L Anion Gap (12-20) BUN (9-16) mg/dL Creatinine (0.5-1.4) mg/dL Estim Creat Clear Calc Estimated GFR Random Glucose (60-115) mg/dL Lactic Acid 1.1 (0.5-2.0) mmol/L Calcium (8.4-10.2) mg/dL Magnesium (1.6-2.6) mg/dL Total Bilirubin (0.0-1.0) mg/dL Direct Bilirubin (0.0-0.5) mg/dL AST (5-31) U/L ALT (0-31) U/L Alkaline Phosphatase (39-117) U/L Total Protein (6.5-8.0) g/dL Albumin (3.5-5.0) g/dL Urine Color Urine Appearance Urine pH (5.0-9.0) Ur Specific [place] (1.005-1.025) Urine Protein (Neg-Trace) mg/dL Urine Glucose (UA) (Negative) mg/dL Urine Ketones (Negative) mg/dL Urine Blood (Negative) Urine Nitrite (Negative) Ur Leukocyte Esterase (Negative) <Amrita Estevez NP - Last Filed: 04/27/22 17:47> Independent Interpretation I performed an independent interpretation of an: CT Scan <Amrita Estevez NP - Last Filed: 04/27/22 17:47> Radiology Impression Discussion of test interpretation with radiology: I have reviewed the radiologist's reading. <Amrita Estevez NP - Last Filed: 04/27/22 17:47> Radiologist Impression: FINDINGS: LUNG BASES: Mild bibasilar subsegmental atelectasis and/or scarring. Pacer wires in the right atrium and right ventricle. Surgical clips at the GE junction.? LIVER, GALLBLADDER, AND BILIARY TREE: The liver is normal in size, shape, and attenuation. No focal hepatic lesion or biliary ductal dilatation is present. Couple small layering calcified gallstones, present previously. No gallbladder wall thickening or pericholecystic inflammatory change.? PANCREAS: Unremarkable.? SPLEEN: Mildly enlarged measuring 13.4 cm in craniocaudal length, similar to prior. No splenic lesion.? ADRENAL GLANDS: Mild thickening of the bilateral adrenal glands, unchanged. KIDNEYS AND URETERS: There are couple of [id number] stones in the right mid ureter just below the pelvic brim, largest 4 mm in size on coronal image 47. Slightly more distally in the ureter there is a 4 x 6 mm stone positioned several centimeters proximal to the UVJ on 6 axial image 57 and coronal image 56. Mild right hydroureteronephrosis and mild perinephric fat stranding. Punctate nonobstructing right lower pole and possibly left upper pole calculi. Mild left renal atrophy. No renal lesion identified.? BLADDER: Decompressed, but grossly unremarkable.? GASTROINTESTINAL TRACT: Status post prior Nat fundoplication. Sigmoid diverticulosis. No evidence of acute diverticulitis. No dilated bowel loops or bowel wall thickening. Normal appendix. No free air or ascites.? ABDOMINAL WALL: Small fat-containing umbilical hernia.? LYMPH NODES: Borderline enlarged right periceliac lymph node measuring 1 cm in short axis, unchanged and nonspecific. No other lymphadenopathy by size criteria. VASCULAR: Moderate vascular calcifications. Normal caliber abdominal aorta. PELVIC VISCERA: Status post hysterectomy.? OSSEOUS STRUCTURES: No acute fracture or suspicious osseous lesion. Mild to moderate multilevel degenerative disc disease. Grade 1 anterolisthesis at L4-L5 secondary to facet arthrosis.? CT/CT abdomen pelvis wo IV con IMPRESSION: 1.? Mild right hydroureteronephrosis with a couple of [id number]-[id number] stones in the right mid ureter, largest 4 mm in size and a more distal 4 x 6 mm stone located several centimeters proximal to the UVJ. 2.? No evidence of acute appendicitis or other acute intra-abdominal process. 3.? Cholelithiasis. 4.? Mild splenomegaly. 5.? Additional chronic findings, as described. ? <LUCIO Galan Last Filed: 04/27/22 17:47> External Record Review External record reviewed: Inpatient record, Outpatient record and Prior outpatient labs <LUCIO Galan Last Filed: 04/27/22 17:47> Prescription Management I considered prescription management with: Pain Medication and Antibiotic <LUCIO Galan Last Filed: 04/27/22 17:47> Chronic Conditions Patient?s care impacted by: Hypertension and Other (Thrombocytopenia) <LUCIO Galan Last Filed: 04/27/22 17:47> Medications Administered Discontinued Medications Generic Name Dose Route Start Last Admin Trade Name Freq PRN Reason Stop Dose Admin Acetaminophen 650 mg 04/27/22 16:21 04/27/22 16:52 Acetaminophen 325 Mg Tablet PO 04/27/22 16:22 650 mg ONCE ONE Administration Sodium Chloride 1,000 mls @ 999 mls/hr 04/27/22 16:30 04/27/22 16:50 Ns IVCONT 04/27/22 17:30 999 mls/hr .Q1H1M HIRA Administration Ceftriaxone Sodium 1 gm/ 50 mls @ 100 mls/hr 04/27/22 16:55 04/27/22 17:13 Sodium Chloride IV 04/27/22 17:24 100 mls/hr ONCE ONE Administration Morphine Sulfate 1 mg 04/27/22 16:21 04/27/22 16:51 Morphine Sulfate 2 Mg/Ml Cartridge IVPUSH 04/27/22 16:22 1 mg ONCE ONE Administration Protocol Ondansetron HCl 4 mg 04/27/22 16:21 04/27/22 16:52 Ondansetron Hcl 4 Mg/2 Ml Vial IVPUSH 04/27/22 16:22 4 mg ONCE ONE Administration <SALVADOR Ko - Last Filed: 04/27/22 13:58> Medications Administered Discontinued Medications Generic Name Dose Route Start Last Admin Trade Name Freq PRN Reason Stop Dose Admin Acetaminophen 650 mg 04/27/22 16:21 04/27/22 16:52 Acetaminophen 325 Mg Tablet PO 04/27/22 16:22 650 mg ONCE ONE Administration Sodium Chloride 1,000 mls @ 999 mls/hr 04/27/22 16:30 04/27/22 16:50 Ns IVCONT 04/27/22 17:30 999 mls/hr .Q1H1M HIRA Administration Ceftriaxone Sodium 1 gm/ 50 mls @ 100 mls/hr 04/27/22 16:55 04/27/22 17:13 Sodium Chloride IV 04/27/22 17:24 100 mls/hr ONCE ONE Administration Morphine Sulfate 1 mg 04/27/22 16:21 04/27/22 16:51 Morphine Sulfate 2 Mg/Ml Cartridge IVPUSH 04/27/22 16:22 1 mg ONCE ONE Administration Protocol Ondansetron HCl 4 mg 04/27/22 16:21 04/27/22 16:52 Ondansetron Hcl 4 Mg/2 Ml Vial IVPUSH 04/27/22 16:22 4 mg ONCE ONE Administration <Amrita Estevez NP - Last Filed: 04/27/22 17:47> Discharge Plan Discharge Clinical Impression: Thrombocytopenia, Kidney stones, Pyelonephritis <SALVADOR Ko - Last Filed: 04/27/22 13:58> Patient Disposition: Admitted As Inpatient <SALVADOR Ko - Last Filed: 04/27/22 13:58>
[2022-04-27 14:15] LABS: Basophils Absolute Auto 0.1 X10*3/uL (0.0-0.2); Basophils Percent Auto 0.4 % (0-2); Eosinophils Absolute Auto 0.1 X10*3/uL (0.0-0.4); Eosinophils Percent Auto 0.3 % (0-4); Hemoglobin 9.6 g/dl (12.0-16.0); Imm Gran Pct Auto 4.3 % (0.0-0.4); Lymphocytes Absolute Auto 1.3 X10*3/uL (1.2-4.9); Lymphocytes Percent Auto 4.3 % (20-40); MANUAL DIFF FLAG SCAN; Mean Corpuscular Hemoglobin 26.4 pg (27.0-33.0); Mean Corpuscular Volume 85.4 fL (80.0-98.0); Mean Platelet Volume 13.1 fL (9.4-12.3); Monocytes Absolute Auto 3.7 X10*3/uL (0.1-1.2); Monocytes Percent Auto 12.1 % (2-11); Neutrophils Absolute Auto 23.9 x10*3/uL (2.0-8.3); Neutrophils Percent Auto 78.6 % (45-73); Red Blood Count 3.63 X10*6/uL (4.20-5.50); Red Cell Distribution Width 15.6 % (11.0-16.0); SCAN SMEAR FLAG 1
[2022-04-27 14:19] LABS: Platelet Count 76 X10*3/uL (160-400); White Blood Count 30.4 X10*3/uL (4.8-10.8)
[2022-04-27 14:32] LABS: Alanine Aminotransferase < 6 U/L (0-31); Albumin Level 4.7 g/dL (3.5-5.0); Alkaline Phosphatase 82 U/L (39-117); Anion Gap 16 (12-20); Aspartate Amino Transferase 15 U/L (5-31); Bilirubin Direct < 0.2 mg/dL (0.0-0.5); Bilirubin Total 0.5 mg/dL (0.0-1.0); Blood Urea Nitrogen 37 mg/dL (9-16); Carbon Dioxide 16 mmol/L (22-29); Chloride 112 mmol/L (96-108); Creatinine Clr Calc Pharmacy 13.6; Estimated Glomerular Filt Rate 18; Glucose Random 160 mg/dL (60-115); Magnesium 1.9 mg/dL (1.6-2.6); Potassium 4.6 mmol/L (3.3-5.1); Sodium 139 mmol/L (135-145)
[2022-04-27 14:47] LABS: SLIDE REVIEW VERIFIED
[2022-04-27 16:37] LABS: Appearance Urine Clear; Color Urine Yellow; Glucose Urine UA 100 mg/dL (Negative); Leukocyte Esterase Urine Moderate (2+) (Negative); Nitrite Urine Negative (Negative); PH 5.5 (5.0-9.0); Specific Gravity - Urine 1.015 (1.005-1.025); UMIC TRIGGER UACC YES; Urine Blood Moderate (2+) (Negative); Urine Ketones Negative (Negative); Urine Protein 300 (3+) mg/dL (Neg-Trace)
[2022-04-27] MEDS: 0.9 % Sodium Chloride 1,000 ML 999 ML IVCONT (16:50)
[2022-04-27] MEDS: Morphine Sulfate 2 MG/ML CARTRIDGE 1 MG IVPUSH (16:51)
[2022-04-27] MEDS: ondansetron HCL 4 MG/2 ML VIAL IVPUSH ×2 (16:52→23:12)
[2022-04-27] MEDS: Acetaminophen 325 MG TABLET 650 MG PO (16:52)
[2022-04-27 16:57] LABS: Lactic Acid 1.1 mmol/L (0.5-2.0)
[2022-04-27] MEDS: cefTRIAXone sodium 1 GM in 0.9 % Sodium Chloride 50 ML IV (17:13)
--- NOTE | 2022-04-27 17:14 | ECG_ITS ---
Test Reason : KIDNEY STONES Blood Pressure : / mmHG Vent. Rate : 111 BPM Atrial Rate : 111 BPM P-R Int : 178 ms QRS Dur : 080 ms QT Int : 332 ms P-R-T Axes : 064 -04 020 degrees QTc Int : 451 ms Sinus tachycardia Minimal voltage criteria for LVH, may be normal variant ( R in aVL ) Inferior infarct , age undetermined Abnormal ECG No previous ECGs available Referred By: Amrita Estevez Electronically Signed By:Dani López
--- NOTE | 2022-04-27 17:28 | PC.NURSE ---
Alert and oriented, respirations even and unlabored. IV established, labs drawn and sent. Urine obtained. Ambulates with one assist with steady gait. Hx CVA with partial left sided paralysis.
[2022-04-27 18:02] LABS: COVID-19 Test Negative (Negative); IDNOW Serial# 16C4AD1C
[2022-04-27 18:16] LABS: Bacteria Urine None Seen (None Seen); RBC Urine >20 /HPF (0-2); UACC Culture Trigger YES; WBC Urine >50 /HPF (0-5)
--- NOTE | 2022-04-27 18:37 | PM.IMHP ---
History of Present Illness Date of Service: 04/27/22 Attending physician on admission: Kee Bales Chief Complaint: RLQ pain 82-year-old female with history of CVA in 2019, CAD with history [place] and cardiac arrest in 10/2019, carotid arterial disease s/p right carotid endarterectomy, anxiety, hypertension, anxiety, hyperlipidemia, CKD stage 4, arthritis on Plaquenil, chronic leukocytosis, thrombocytopenia, history of nephrolithiasis presented to the ED earlier today for evaluation of right lower quadrant pain that started this morning. There is no radiation of the pain. She rates the pain as a 3-4/10. Denies any fevers, chills, nausea, vomiting, flank pain, dysuria, hematuria, increased urinary frequency, decreased urinary output, constipation, melena, hematochezia, diarrhea, shortness of breath, chest pain. In the ED, patient tachycardic to 113, tachypneic to 24, hypertensive to 180/74. Leukocytosis 30.4 (baseline around 27). H/H 9.6/31.0%, baseline. Platelets 76, baseline. Renal function baseline, electrolytes normal. Glucose 160. Lactic acid 1.1. UA significant for 2+ leukocytes, 2+ blood, 3+ protein, urinary sediment, negative for bacteria. CT of the abdomen/pelvis showing mild right hydroureteronephrosis with several glpx-sh-xmof stones in the right mid ureter the largest measuring 4 mm and a more distal 4 x 6 mm stone located several cm proximal to the UVJ with mild right-sided perinephric fat stranding. No other acute intra-abdominal abnormalities. Patient treated empirically in the ED with 1 g ceftriaxone, ondansetron, morphine, as well as 1 L normal saline. Review of Systems Review of Systems: General: No fevers, malaise, unintentional weight loss Cardiovascular: No chest pain, palpitations, or leg edema Respiratory: No shortness of breath, wheezing, cough GI: +RLQ pain. No nausea, vomiting, diarrhea, constipation, melena, hematochezia : No dysuria, hematuria, increased urinary frequency, decreased urinary output MSK: No myalgia, back pain Neuro: No headaches, weakness, paresthesias Skin: No rashes or lesions PMFSH Medical History Annual physical exam Anxiety Arthritis CAD (coronary artery disease) Callus of foot Carotid arterial disease CKD (chronic kidney disease) stage 3, GFR 30-59 ml/min [place] of foot CVA (cerebral vascular accident) Elevated WBC count History of kidney stones HTN (hypertension) Hyperlipidemia Normal breast exam Pacemaker Renal calculi Rotator cuff arthropathy of right shoulder Shoulder pain, left Skin cancer Ureteral tumor UTI (urinary tract infection) Family History Father No problems noted. Mother Breast cancer Maternal Aunt Breast cancer Sister Breast cancer Uterine cancer Surgical History H/O: hysterectomy Social History Household Members: Spouse Household Members Other:: , daughter in [place] Housing: House Are you a primary youth care worker to a significant other at home: No Do you presently have visiting nurse or other home services: No Alcohol intake: never Patient Tobacco Use Status: Never used Tobacco e-Cigarette/Vaping Use: Never Used Advance Directives: No Advance Directives Information Provided: Yes service: No Current occupational status: retired Cognitive needs: No Hearing needs: No Vision needs: Yes Meds Allergies Allergy/AdvReac Type Severity Reaction Status Date / Time prochlorperazine Allergy Severe paralyzed Verified 04/01/22 15:46 [From Compazine] Active Medications: Current Medications Acetaminophen (Acetaminophen 325 Mg Tablet) 650 mg PO Q6H PRN PRN Reason: Pain, Mild (Pain Scale 1-3) Ondansetron HCl (Ondansetron Hcl 4 Mg/2 Ml Vial) 4 mg IVPUSH Q8H PRN PRN Reason: Nausea and Vomiting Pharmacy Consult (Consult Rx Perform Med Rec) 1 each MISCELLANE ONCE STA Stop: 04/27/22 17:49 Sodium Chloride (0.9 % Sodium Chloride Flush 3 Ml Syringe) 3 ml IVFLUSH [facility] Medications Medication Instructions Recorded Confirmed Last Taken Type amlodipine 5 mg tablet 5 mg PO DAILY 04/15/21 04/27/22 Unknown History aspirin 81 mg tablet,delayed 81 mg PO DAILY 04/15/21 04/27/22 Unknown History release allopurinol 100 mg tablet 0.5 tab PO DAILY 10/06/21 04/27/22 Unknown History Physical Exam Vital Signs and Narrative: Vital Signs: Last Vital Signs Temp 98 F 04/27/22 13:52 Pulse 113 H 04/27/22 13:52 Resp 17 04/27/22 13:52 BP 148/79 H 04/27/22 13:52 Pulse Ox 98 04/27/22 13:52 O2 Del Method 04/27/22 13:52 BMI result Body Mass Index 26.6 Constitutional - Awake and Alert, No apparent distress Eyes - PERRLA, EOMI Cardiovascular - S1S2, RRR, No edema Respiratory - Normal lung expansion, Normal respiratory effort, No respiratory distress, CTA bilaterally Gastrointestinal - Mild RLQ ttp without guarding or rebound. ND; +BS - No CVA tenderness Extremities - no calf tenderness bilaterally, no swelling Skin - Warm/Dry Neurological - Alert & oriented x3, CN II-XII in tact, 5/5 strength BUE and BLE Psychological - Appropriate affect Results Labs 04/27/22 13:59 04/27/22 13:59 Labs: Laboratory Results - last 24 hr 04/27/22 04/27/22 04/27/22 13:59 13:59 16:26 MCV 85.4 MCH 26.4 L MCHC 31.0 RDW 15.6 Plt Count 76 L MPV 13.1 H Immature Gran % (Auto) 4.3 H Neut % (Auto) 78.6 H Lymph % (Auto) 4.3 L [place] % (Auto) 12.1 H Eos % (Auto) 0.3 Baso % (Auto) 0.4 Lymph # (Auto) 1.3 [place] # (Auto) 3.7 H Eos # (Auto) 0.1 Baso # (Auto) 0.1 Abs Immat Gran (auto) 1.30 H Absolute Neuts (auto) 23.9 H Absolute Nucleated RBC 0.000 Nucleated RBC % (auto) 0.0 Smear Tech's Comments VERIFIED Anion Gap 16 Estim Creat Clear Calc 13.6 Estimated GFR 18 Random Glucose 160 H Lactic Acid Calcium 9.0 Magnesium 1.9 Total Bilirubin 0.5 Direct Bilirubin < 0.2 AST 15 ALT < 6 Alkaline Phosphatase 82 Total Protein 8.0 Albumin 4.7 Urine Color Yellow Urine Appearance Clear Urine pH 5.5 Ur Specific [place] 1.015 Urine Protein 300 (3+) H Urine Glucose (UA) 100 H Urine Ketones Negative Urine Blood Moderate (2+) H Urine Nitrite Negative Ur Leukocyte Esterase Moderate (2+) H Urine RBC >20 H Urine WBC >50 H Ur Squamous Epith Cells 3-5 Urine Bacteria None Seen Hyaline Casts 6-10 COVID-19 (ERI) COVID-19 Clin Com 04/27/22 04/27/22 16:40 17:41 MCV MCH MCHC RDW Plt Count MPV Immature Gran % (Auto) Neut % (Auto) Lymph % (Auto) [place] % (Auto) Eos % (Auto) Baso % (Auto) Lymph # (Auto) [place] # (Auto) Eos # (Auto) Baso # (Auto) Abs Immat Gran (auto) Absolute Neuts (auto) Absolute Nucleated RBC Nucleated RBC % (auto) Smear Tech's Comments Anion Gap Estim Creat Clear Calc Estimated GFR Random Glucose Lactic Acid 1.1 Calcium Magnesium Total Bilirubin Direct Bilirubin AST ALT Alkaline Phosphatase Total Protein Albumin Urine Color Urine Appearance Urine pH Ur Specific [place] Urine Protein Urine Glucose (UA) Urine Ketones Urine Blood Urine Nitrite Ur Leukocyte Esterase Urine RBC Urine WBC Ur Squamous Epith Cells Urine Bacteria Hyaline Casts COVID-19 (ERI) Negative COVID-19 Clin Com See Note Imaging Radiologist's Impressions: Impressions Abdomen/Pelvis CT 04/27/22 15:12 IMPRESSION: 1. Mild right hydroureteronephrosis with a couple of hjyi-nt-wedb stones in the right mid ureter, largest 4 mm in size and a more distal 4 x 6 mm stone located several centimeters proximal to the UVJ. 2. No evidence of acute appendicitis or other acute intra-abdominal process. 3. Cholelithiasis. 4. Mild splenomegaly. 5. Additional chronic findings, as described. Assessment and Plan (1) Kidney stones: Status: Acute (2) Pyelonephritis: Status: Acute Plan 82-year-old female with history of CVA in 2019, CAD with history [place] and cardiac arrest in 10/2019, carotid arterial disease s/p right carotid endarterectomy, anxiety, hypertension, anxiety, hyperlipidemia, CKD stage 4, arthritis on Plaquenil, chronic leukocytosis, thrombocytopenia, history of nephrolithiasis admitted for suspected pyelonephritis, obstructive uropathy. #Acute pyelonephritis -CT abd/pelvis with right sided perinephric fat stranding and pt noted to have exquisite right CVA tenderness by ED provider -Continue IVF -UA with 2+ leuks, 2+ blood, urinary sediment, negative bacteria, 3+ protein -continue IV ceftriaxone for empiric treatment -UC and BC x2 pending -monitor BMP # obstructive uropathy -mild right-sided hydroureteronephrosis with several had besides stones in the right mid ureter, largest 4 mm in size and a more distal 4 x 6 mm stone proximal to the UVJ -pain management using pain scale -ondansetron p.r.n. for nausea/vomiting -urology consult. NPO after midnight in case of procedure -patient states she cannot tolerate Flomax # hypertension- uncontrolled likely secondary to pain -Continue amlodipine. -monitor BP # CKD stage 4 -renal function baseline -Avoid nephrotoxins -monitor BMP # arthritis -patient states osteo rather than inflammatory or rheumatoid. States her chronic leukocytosis has been attributed to her arthritis -continue hydroxychloroquine # CAD/HLD/PAD -continue statin, baby aspirin DVT prophylaxis- compression therapy in case of procedure tomorrow Full code Pt requires inpt stay for management of pyelonephritis with obstructive uropathy requiring IVF, IV abx, and expert consultation. Time Spent With Patient Time: Total time managing care of this patient today ____ minutes. Quality Stroke Does the patient have a stroke diagnosis?: No VTE Prior VTE?: No VTE Risk Level:: Medical - moderate - high VTE Device Contraindication: N/A - Device Ordered VTE Drug Contraindication: Treatment Not Indicated
[2022-04-27 18:43] VITALS: BP 180/74; PULSE 114; RESP 24; O2SAT 95
[2022-04-27] MEDS: Lactated Ringers 1,000 ML 100 ML IVCONT (18:47)
--- NOTE | 2022-04-27 18:49 | PHA.MEDREC ---
Pharmacy Consult ? Medication Reconciliation Pharmacy has completed the medication reconciliation. Patient is not adherent to mediations. Patient reported she is suppose to be on Plaquenil however state she stopped taking it a while ago. When asked why, she stated that she has been on it for years and years and does not help. Patient also reported she takes her atorvastatin every now and then. Only medications recently filled is amlodipine. Carol Cotto, RyD
[2022-04-27 19:34] VITALS: BP 164/57; PULSE 102; RESP 17; O2SAT 95
--- NOTE | 2022-04-27 20:54 | PC.NURSE ---
Pt's BP is slightly elevated, provider is aware. Pt is on continuos rn cardiac and it shows Sinus Tachy 103, Pt is having pain 5/10. Pt is ready for transferred and report has been given by this nurse.
[2022-04-27] MEDS: oxyCODONE HCl Immed Release 5 MG TABLET PO (20:56)
[2022-04-27 21:51] VITALS: BP 159/80; PULSE 82; RESP 18; TEMP 37.1; O2SAT 98
[2022-04-27] MEDS: 0.9 % Sodium Chloride Flush 3 ML SYRINGE IVFLUSH (23:14)
[2022-04-27 23:20] VITALS: BP 165/80; PULSE 102; RESP 18; TEMP 37.2; O2SAT 96
--- NOTE | 2022-04-27 23:40 | PM.UROCN ---
History of Present Illness Consult details Consult date: 04/27/22 Narrative: 82-year-old female with history of CVA in 2019, CAD with history [place] and cardiac arrest in 10/2019, carotid arterial disease s/p right carotid endarterectomy, anxiety, hypertension, anxiety, hyperlipidemia, CKD stage 4, arthritis on Plaquenil, chronic leukocytosis, thrombocytopenia, history of nephrolithiasis presented to the ED earlier today for evaluation of right lower quadrant pain that started this morning.? There is no radiation of the pain.? She rates the pain as a 3-4/10.? Denies any fevers, chills, nausea, vomiting, flank pain, dysuria, hematuria, increased urinary frequency, decreased urinary output, constipation, melena, hematochezia, diarrhea, shortness of breath, chest pain.? Leukocytosis 30.4 (baseline around 27).? Renal function baseline, electrolytes normal.? Lactic acid 1.1.? UA significant for 2+ leukocytes, 2+ blood, 3+ protein, urinary sediment, negative for bacteria.? CT of the abdomen/pelvis showing mild right hydroureteronephrosis with several gbnw-nz-tdfy stones in the right mid ureter the largest measuring 4 mm and a more distal 4 x 6 mm stone located several cm proximal to the UVJ with mild right-sided perinephric fat stranding.? Review of Systems Review of Systems: 10 point ROS negative other than [facility] Past Medical History Medical History Annual physical exam Anxiety Arthritis CAD (coronary artery disease) Callus of foot Carotid arterial disease CKD (chronic kidney disease) stage 3, GFR 30-59 ml/min [place] of foot CVA (cerebral vascular accident) Elevated WBC count History of kidney stones HTN (hypertension) Hyperlipidemia Normal breast exam Pacemaker Renal calculi Rotator cuff arthropathy of right shoulder Shoulder pain, left Skin cancer Ureteral tumor UTI (urinary tract infection) Family History Family History Father No problems noted. Mother Breast cancer Maternal Aunt Breast cancer Sister Breast cancer Uterine cancer Surgical History Surgical History H/O: hysterectomy Social History Social History Household Members: Spouse Household Members Other:: , daughter in [place] Housing: House Are you a primary customer care team coach to a significant other at home: No Do you presently have visiting nurse or other home services: No Alcohol intake: never Patient Tobacco Use Status: Never used Tobacco e-Cigarette/Vaping Use: Never Used Use of substances other than those prescribed or required for medical reasons: No Currently Displaying Signs/Symptoms of Drug Intoxication Withdrawal: No Any prior treatment program specific to substance use: No Have you been hit, kicked, punched, or otherwise hurt by someone within the past year? If so, by whom?: No Do you feel safe in your current relationship?: Yes Is there a partner from a previous relationship who is making you feel unsafe now?: No Are you made to feel afraid or neglected: No Advance Directives: No Advance Directives Information Provided: Yes Advance Directives on File: No Do you have thoughts of harming others: None Do you have a plan to hurt others: No Plan Recently lost weight without trying: No Eating poorly because of decreased appetite: No Nutrition Risks: No Nutritional Risk Patient : No : No Poor oral hygiene: No service: No Current occupational status: retired Cognitive needs: No Hearing needs: No Vision needs: Yes Meds Allergies Allergy/AdvReac Type Severity Reaction Status Date / Time prochlorperazine Allergy Severe paralyzed Verified 04/01/22 15:46 [From Compazine] Active Medications: Current Medications Acetaminophen (Acetaminophen 325 Mg Tablet) 650 mg PO Q6H PRN PRN Reason: Pain, Mild (Pain Scale 1-3) Allopurinol (Allopurinol 100 Mg Tablet) 50 mg PO DAILY [facility] Amlodipine Besylate (Amlodipine Besylate 5 Mg Tablet) 5 mg PO DAILY [facility]; Protocol Aspirin (Aspirin Enteric Coated 81 Mg Tablet.Dr) 81 mg PO DAILY [facility] Atorvastatin Calcium (Atorvastatin Calcium 40 Mg Tablet) 40 mg PO DAILY [facility] Lactated Ringer's (Lr) 1,000 mls @ 100 mls/hr IVCONT .Q10H HIRA Last Admin: 04/27/22 18:47 Dose: 100 mls/hr Morphine Sulfate (Morphine Sulfate 2 Mg/Ml Cartridge) 2 mg IVPUSH Q3H PRN; Protocol PRN Reason: Pain, Severe (Pain Scale 7-10) Ondansetron HCl (Ondansetron Hcl 4 Mg/2 Ml Vial) 4 mg IVPUSH Q8H PRN PRN Reason: Nausea and Vomiting Last Admin: 04/27/22 23:12 Dose: 4 mg Oxycodone HCl (Oxycodone Hcl Immed Release 5 Mg Tablet) 5 mg PO Q4H PRN PRN Reason: Pain, Moderate (Pain Scale 4-6 Last Admin: 04/27/22 20:56 Dose: 5 mg Sodium Chloride (0.9 % Sodium Chloride Flush 3 Ml Syringe) 3 ml IVFLUSH [facility] Last Admin: 04/27/22 23:14 Dose: 3 ml Home Medications Medication Instructions Recorded Confirmed Last Taken Type amlodipine 5 mg tablet 5 mg PO DAILY 04/15/21 04/27/22 Unknown History aspirin 81 mg tablet,delayed 81 mg PO DAILY 04/15/21 04/27/22 Unknown History release allopurinol 100 mg tablet 0.5 tab PO DAILY 10/06/21 04/27/22 Unknown History Physical Exam Vital Signs: Vital Signs: Last Vital Signs Temp 99.0 F 04/27/22 23:20 Pulse 102 H 04/27/22 23:20 Resp 18 04/27/22 23:20 BP 165/80 H 04/27/22 23:20 Pulse Ox 96 04/27/22 23:20 O2 Del Method 04/27/22 23:20 BMI result Body Mass Index 26.6 Const: General: cooperative and no acute distress Orientation/consciousness: patient oriented x3 HEENT: Head: Yes normal to inspection, Yes normocephalic and Yes atraumatic Eyes: Conjunctivae: conjunctivae normal Neck: Neck: Yes normal visual inspection and Yes trachea midline Chest: Chest palpation & inspection: normal inspection of the chest Resp: Effort & Inspection: normal respiratory effort Cardio: Rate: regular rate GI: Inspection: Yes normal to inspection Palpation (GI): Soft to palpation : General: Yes CVA tenderness (right) Back/Spine/Pelvis: Other: left hemiplegia Back: CVA tenderness (right) Skin: General skin exam: no rashes or lesions noted Neuro: General: patient oriented x3 Extrem: General: No edema Psych: Appearance: grossly normal Results Labs 04/27/22 13:59 04/27/22 13:59 Labs: Abnormal lab results 04/27/22 04/27/22 04/27/22 Range/Units 13:59 13:59 16:26 WBC 30.4 H* (4.8-10.8) X10*3/uL RBC 3.63 L (4.20-5.50) X10*6/uL Hgb 9.6 L (12.0-16.0) g/dl Hct 31.0 L (37.0-47.0) % MCH 26.4 L (27.0-33.0) pg Plt Count 76 L (160-400) X10*3/uL MPV 13.1 H (9.4-12.3) fL Immature Gran % (Auto) 4.3 H (0.0-0.4) % Neut % (Auto) 78.6 H (45-73) % Lymph % (Auto) 4.3 L (20-40) % [place] % (Auto) 12.1 H (2-11) % [place] # (Auto) 3.7 H (0.1-1.2) X10*3/uL Abs Immat Gran (auto) 1.30 H (0.00-0.03) X10*3/uL Absolute Neuts (auto) 23.9 H (2.0-8.3) x10*3/uL Chloride 112 H (96-108) mmol/L Carbon Dioxide 16 L (22-29) mmol/L BUN 37 H (9-16) mg/dL Creatinine 2.55 H (0.5-1.4) mg/dL Random Glucose 160 H (60-115) mg/dL Urine Protein 300 (3+) H (Neg-Trace) mg/dL Urine Glucose (UA) 100 H (Negative) mg/dL Urine Blood Moderate (2+) H (Negative) Ur Leukocyte Esterase Moderate (2+) H (Negative) Urine RBC >20 H (0-2) /HPF Urine WBC >50 H (0-5) /HPF Short CBC 04/27/22 Range/Units 13:59 WBC 30.4 H* (4.8-10.8) X10*3/uL Hgb 9.6 L (12.0-16.0) g/dl Hct 31.0 L (37.0-47.0) % Plt Count 76 L (160-400) X10*3/uL BMP 04/27/22 13:59 Sodium 139 Potassium 4.6 Chloride 112 H Carbon Dioxide 16 L BUN 37 H Creatinine 2.55 H Calcium 9.0 Liver Function 04/27/22 Range/Units 13:59 Total Bilirubin 0.5 (0.0-1.0) mg/dL Direct Bilirubin < 0.2 (0.0-0.5) mg/dL AST 15 (5-31) U/L ALT < 6 (0-31) U/L Alkaline Phosphatase 82 (39-117) U/L Albumin 4.7 (3.5-5.0) g/dL Urine 04/27/22 Range/Units 16:26 Urine Color Yellow Urine Appearance Clear Urine pH 5.5 (5.0-9.0) Ur Specific [place] 1.015 (1.005-1.025) Urine Protein 300 (3+) H (Neg-Trace) mg/dL Urine Glucose (UA) 100 H (Negative) mg/dL All other labs normal. Imaging Additional studies: Date of Service: 04/27/22 CT ABDOMEN AND PELVIS WITHOUT CONTRAST? CLINICAL INFORMATION: Right lower quadrant pain? COMPARISON: CT abdomen and pelvis 09/17/2021? FINDINGS: LUNG BASES: Mild bibasilar subsegmental atelectasis and/or scarring. Pacer wires in the right atrium and right ventricle. Surgical clips at the GE junction.? LIVER, GALLBLADDER, AND BILIARY TREE: The liver is normal in size, shape, and attenuation. No focal hepatic lesion or biliary ductal dilatation is present. Couple small layering calcified gallstones, present previously. No gallbladder wall thickening or pericholecystic inflammatory change.? PANCREAS: Unremarkable.? SPLEEN: Mildly enlarged measuring 13.4 cm in craniocaudal length, similar to prior. No splenic lesion.? ADRENAL GLANDS: Mild thickening of the bilateral adrenal glands, unchanged. KIDNEYS AND URETERS: There are couple of szae-ni-iudl stones in the right mid ureter just below the pelvic brim, largest 4 mm in size on coronal image 47. Slightly more distally in the ureter there is a 4 x 6 mm stone positioned several centimeters proximal to the UVJ on 6 axial image 57 and coronal image 56. Mild right hydroureteronephrosis and mild perinephric fat stranding. Punctate nonobstructing right lower pole and possibly left upper pole calculi. Mild left renal atrophy. No renal lesion identified.? BLADDER: Decompressed, but grossly unremarkable.? GASTROINTESTINAL TRACT: Status post prior Nat fundoplication. Sigmoid diverticulosis. No evidence of acute diverticulitis. No dilated bowel loops or bowel wall thickening. Normal appendix. No free air or ascites.? ABDOMINAL WALL: Small fat-containing umbilical hernia.? LYMPH NODES: Borderline enlarged right periceliac lymph node measuring 1 cm in short axis, unchanged and nonspecific. No other lymphadenopathy by size criteria. VASCULAR: Moderate vascular calcifications. Normal caliber abdominal aorta. PELVIC VISCERA: Status post hysterectomy.? OSSEOUS STRUCTURES: No acute fracture or suspicious osseous lesion. Mild to moderate multilevel degenerative disc disease. Grade 1 anterolisthesis at L4-L5 secondary to facet arthrosis.? IMPRESSION: 1.? Mild right hydroureteronephrosis with a couple of kytv-gn-hhvl stones in the right mid ureter, largest 4 mm in size and a more distal 4 x 6 mm stone located several centimeters proximal to the UVJ. 2.? No evidence of acute appendicitis or other acute intra-abdominal process. 3.? Cholelithiasis. 4.? Mild splenomegaly. Assessment and Plan (1) Kidney stones: Status: Acute (2) Pyelonephritis: Status: Acute (3) Hydronephrosis: Status: Acute (4) Ureteral stone: Status: Acute Plan Keep NPO. Plan for Cystoscopy, right ureteral stent. Possible ureteroscopy laser lithotripsy. Risks discussed included but not limited to repeat procedure for stone management. Irritative voiding symptoms, bladder spasms, urgency, blood in urine. Time Spent With Patient Time: Total time managing care of this patient today ____ minutes. Procedures Date of Service Date of Service: 04/28/22
[2022-04-28] VITALS (12 sets, daily range): BP systolic 115–189; BP diastolic 52–98; PULSE 65–100; RESP 16–18; TEMP 36.6–37.7; O2SAT 93–99
[2022-04-28] MEDS: oxyCODONE HCl Immed Release 5 MG TABLET PO ×3 (00:39→22:18)
[2022-04-28] MEDS: Morphine Sulfate 2 MG/ML CARTRIDGE IVPUSH ×3 (02:12→13:09)
[2022-04-28 06:50] LABS: Hematocrit 26.1 % (37.0-47.0); Hemoglobin 8.1 g/dl (12.0-16.0); Mean Corpuscular Hemoglobin 26.6 pg (27.0-33.0); Mean Corpuscular Volume 85.9 fL (80.0-98.0); Mean Platelet Volume 13.5 fL (9.4-12.3); Red Blood Count 3.04 X10*6/uL (4.20-5.50); Red Cell Distribution Width 15.7 % (11.0-16.0)
[2022-04-28 07:03] LABS: Anion Gap 15 (12-20); Blood Urea Nitrogen 34 mg/dL (9-16); Calcium 8.5 mg/dL (8.4-10.2); Carbon Dioxide 14 mmol/L (22-29); Chloride 113 mmol/L (96-108); Creatinine Clr Calc Pharmacy 12.2; Estimated Glomerular Filt Rate 16; Glucose Random 138 mg/dL (60-115); Potassium 4.3 mmol/L (3.3-5.1); Sodium 138 mmol/L (135-145)
[2022-04-28 07:15] LABS: Platelet Count 59 X10*3/uL (160-400); White Blood Count 38.9 X10*3/uL (4.8-10.8)
[2022-04-28 07:42] LABS: Band Neutrophils Percent 3 % (3-5); Basophils Abs Manual 0.4 X10*3/uL (0.0-0.2); Basophils Percent Manual 1 % (0-2); Lymphocytes Absolute Manual 1.6 X10*3/uL (1.2-4.9); Lymphocytes Percent Manual 4 % (20-40); Metamyelocytes Absolute 1.2 X10*3/uL; Metamyelocytes Percent 3 %; Monocytes Absolute Manual 7.8 X10*3/uL (0.1-1.2); Monocytes Percent Manual 20 % (2-11); Myelocytes Absolute 0.4 X10*/uL; Myelocytes Percent 1 %; Neutrophils Absolute Manual 27.6 X10*3/uL (2.0-8.3); Neutrophils Percent Manual 68 % (45-73); Platelet Estimate DECREASED (NORMAL)
[2022-04-28 07:44] LABS: Burr Cells 1+ (0-2) /OIF; Hypochromasia 1+ (5-14) /OIF; Microcytosis 1+ (5-14) /OIF; RBC Morphology NOTED; Tear Drop Cells 1+ (0-2) /OIF
[2022-04-28 07:45] LABS: Schistocytes 1+ (0-2) /OIF; Toxic Vacuolation PRESENT
[2022-04-28 07:46] LABS: Platelet Morphology Comment NORMAL
[2022-04-28] MEDS: allopurinoL 100 MG TABLET 50 MG PO (08:25)
[2022-04-28] MEDS: Atorvastatin Calcium 40 MG TABLET PO (08:25)
[2022-04-28] MEDS: Aspirin Enteric Coated 81 MG TABLET.DR PO (08:25)
[2022-04-28] MEDS: Lactated Ringers 1,000 ML 100 ML IVCONT ×2 (08:26→17:05)
[2022-04-28] MEDS: 0.9 % Sodium Chloride Flush 3 ML SYRINGE IVFLUSH ×2 (08:27→17:05)
[2022-04-28] MEDS: amLODIPine Besylate 5 MG TABLET PO (08:32)
[2022-04-28] MEDS: ondansetron HCL 4 MG/2 ML VIAL IVPUSH (09:55)
[2022-04-28 11:08] LABS: Glucose, Whole Blood 134 mg/dL (60-115)
--- NOTE | 2022-04-28 12:40 | MHC.CM.PN ---
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
--- NOTE | 2022-04-28 14:23 | HO.PM.IMPN ---
Subjective Subjective Date of Service: 04/28/22 Interval History: Considerable flank pain overnight. Nausea from analgesics Review of Systems Denies chest pain Denies shortness of breath Admits nausea no vomiting Denies fever chills Physical Exam Vital Signs: Vital Signs: Last Vital Signs Temp 98.4 F 04/28/22 11:04 Pulse 93 04/28/22 11:04 Resp 16 04/28/22 11:04 BP 143/65 H 04/28/22 11:04 Pulse Ox 93 04/28/22 11:04 O2 Del Method 04/28/22 11:04 BMI result Body Mass Index 26.6 Const: Other: Awake alert uncomfortable appearing the bed Resp: Other: Clear to auscultation bilaterally no rales rhonchi wheezes Cardio: Other: No S4; positive S1-S2; no S3 murmurs rubs or gallops Back/Spine/Pelvis: Other: Right CVA tenderness Extrem: Other: No edema bilaterally Objective Data Active Medications Acetaminophen (Acetaminophen 325 Mg Tablet) 650 mg PO Q6H PRN PRN Reason: Pain, Mild (Pain Scale 1-3) Allopurinol (Allopurinol 100 Mg Tablet) 50 mg PO DAILY [facility] Last Admin: 04/28/22 08:25 Dose: 50 mg Documented By: DARI Amlodipine Besylate (Amlodipine Besylate 5 Mg Tablet) 5 mg PO DAILY [facility]; Protocol Last Admin: 04/28/22 08:32 Dose: 5 mg Documented By: DARI Aspirin (Aspirin Enteric Coated 81 Mg Tablet.) 81 mg PO DAILY [facility] Last Admin: 04/28/22 08:25 Dose: 81 mg Documented By: DARI Atorvastatin Calcium (Atorvastatin Calcium 40 Mg Tablet) 40 mg PO DAILY [facility] Last Admin: 04/28/22 08:25 Dose: 40 mg Documented By: DARI Lactated Ringer's (Lr) 1,000 mls @ 100 mls/hr IVCONT .Q10H [facility] Last Admin: 04/28/22 08:26 Dose: 100 mls/hr Documented By: DARI Morphine Sulfate (Morphine Sulfate 2 Mg/Ml Cartridge) 2 mg IVPUSH Q3H PRN; Protocol PRN Reason: Pain, Severe (Pain Scale 7-10) Last Admin: 04/28/22 13:09 Dose: 2 mg Documented By: DARI Ondansetron HCl (Ondansetron Hcl 4 Mg/2 Ml Vial) 4 mg IVPUSH Q8H PRN PRN Reason: Nausea and Vomiting Last Admin: 04/28/22 09:55 Dose: 4 mg Documented By: DARI Oxycodone HCl (Oxycodone Hcl Immed Release 5 Mg Tablet) 5 mg PO Q4H PRN PRN Reason: Pain, Moderate (Pain Scale 4-6 Last Admin: 04/28/22 08:25 Dose: 5 mg Documented By: DARI Sodium Chloride (0.9 % Sodium Chloride Flush 3 Ml Syringe) 3 ml IVFLUSH QSHIFT [facility] Last Admin: 04/28/22 08:27 Dose: 3 ml Documented By: DARI Labs 04/28/22 06:15 04/28/22 06:15 Labs: Laboratory Results - last 24 hr 04/27/22 04/27/22 04/27/22 13:59 13:59 16:26 MCV MCH MCHC RDW Plt Count MPV Immature Gran % (Auto) 4.3 H Neut % (Auto) 78.6 H Lymph % (Auto) 4.3 L [place] % (Auto) 12.1 H Eos % (Auto) 0.3 Baso % (Auto) 0.4 Lymph # (Auto) 1.3 [place] # (Auto) 3.7 H Eos # (Auto) 0.1 Baso # (Auto) 0.1 Abs Immat Gran (auto) 1.30 H Absolute Neuts (auto) 23.9 H Absolute Nucleated RBC 0.000 Nucleated RBC % (auto) 0.0 Neutrophils % (Manual) Band Neutrophils % Lymphocytes % (Manual) Monocytes % (Manual) Basophils % (Manual) Metamyelocytes % Myelocytes % Abs Neuts (Manual) Lymphocytes # (Manual) Monocytes # (Manual) Basophils # (Manual) Metamyelocytes # Myelocytes # Toxic Vacuolation Platelet Estimate Plt Morphology Comment RBC Morphology Hypochromasia Microcytosis Tear Drop Cells Shahla Cells Schistocytes Smear Tech's Comments VERIFIED Anion Gap 16 Estim Creat Clear Calc 13.6 Estimated GFR 18 POC Glucose Random Glucose 160 H Lactic Acid Calcium 9.0 Magnesium 1.9 Total Bilirubin 0.5 Direct Bilirubin < 0.2 AST 15 ALT < 6 Alkaline Phosphatase 82 Total Protein 8.0 Albumin 4.7 Urine Color Yellow Urine Appearance Clear Urine pH 5.5 Ur Specific [place] 1.015 Urine Protein 300 (3+) H Urine Glucose (UA) 100 H Urine Ketones Negative Urine Blood Moderate (2+) H Urine Nitrite Negative Ur Leukocyte Esterase Moderate (2+) H Urine RBC >20 H Urine WBC >50 H Ur Squamous Epith Cells 3-5 Urine Bacteria None Seen Hyaline Casts 6-10 COVID-19 (ERI) COVID-19 Clin Com 04/27/22 04/27/22 04/28/22 16:40 17:41 06:15 MCV 85.9 MCH 26.6 L MCHC 31.0 RDW 15.7 Plt Count 59 L MPV 13.5 H Immature Gran % (Auto) Cancelled Neut % (Auto) Cancelled Lymph % (Auto) Cancelled [place] % (Auto) Cancelled Eos % (Auto) Cancelled Baso % (Auto) Cancelled Lymph # (Auto) Cancelled [place] # (Auto) Cancelled Eos # (Auto) Cancelled Baso # (Auto) Cancelled Abs Immat Gran (auto) Cancelled Absolute Neuts (auto) Cancelled Absolute Nucleated RBC 0.000 Nucleated RBC % (auto) 0.0 Neutrophils % (Manual) 68 Band Neutrophils % 3 Lymphocytes % (Manual) 4 L Monocytes % (Manual) 20 H Basophils % (Manual) 1 Metamyelocytes % 3 Myelocytes % 1 Abs Neuts (Manual) 27.6 H Lymphocytes # (Manual) 1.6 Monocytes # (Manual) 7.8 H Basophils # (Manual) 0.4 H Metamyelocytes # 1.2 Myelocytes # 0.4 Toxic Vacuolation PRESENT Platelet Estimate DECREASED Plt Morphology Comment NORMAL RBC Morphology NOTED Hypochromasia 1+ (5-14) Microcytosis 1+ (5-14) Tear Drop Cells 1+ (0-2) Shahla Cells 1+ (0-2) Schistocytes 1+ (0-2) Smear Tech's Comments Anion Gap Estim Creat Clear Calc Estimated GFR POC Glucose Random Glucose Lactic Acid 1.1 Calcium Magnesium Total Bilirubin Direct Bilirubin AST ALT Alkaline Phosphatase Total Protein Albumin Urine Color Urine Appearance Urine pH Ur Specific [place] Urine Protein Urine Glucose (UA) Urine Ketones Urine Blood Urine Nitrite Ur Leukocyte Esterase Urine RBC Urine WBC Ur Squamous Epith Cells Urine Bacteria Hyaline Casts COVID-19 (ERI) Negative COVID-19 Clin Com See Note 04/28/22 04/28/22 06:15 11:06 MCV MCH MCHC RDW Plt Count MPV Immature Gran % (Auto) Neut % (Auto) Lymph % (Auto) [place] % (Auto) Eos % (Auto) Baso % (Auto) Lymph # (Auto) [place] # (Auto) Eos # (Auto) Baso # (Auto) Abs Immat Gran (auto) Absolute Neuts (auto) Absolute Nucleated RBC Nucleated RBC % (auto) Neutrophils % (Manual) Band Neutrophils % Lymphocytes % (Manual) Monocytes % (Manual) Basophils % (Manual) Metamyelocytes % Myelocytes % Abs Neuts (Manual) Lymphocytes # (Manual) Monocytes # (Manual) Basophils # (Manual) Metamyelocytes # Myelocytes # Toxic Vacuolation Platelet Estimate Plt Morphology Comment RBC Morphology Hypochromasia Microcytosis Tear Drop Cells Shahla Cells Schistocytes Smear Tech's Comments Anion Gap 15 Estim Creat Clear Calc 12.2 Estimated GFR 16 POC Glucose 134 H Random Glucose 138 H Lactic Acid Calcium 8.5 Magnesium Total Bilirubin Direct Bilirubin AST ALT Alkaline Phosphatase Total Protein Albumin Urine Color Urine Appearance Urine pH Ur Specific [place] Urine Protein Urine Glucose (UA) Urine Ketones Urine Blood Urine Nitrite Ur Leukocyte Esterase Urine RBC Urine WBC Ur Squamous Epith Cells Urine Bacteria Hyaline Casts COVID-19 (ERI) COVID-19 Clin Com Microbiology Microbiology Results: Microbiology 04/27/22 Unknown Urine Culture - Preliminary Urine clean catch - Urine brooks top No growth to date. Assessment and Plan (1) Pyelonephritis: Status: Acute (2) Ureteral stone: Status: Acute (3) Hyperlipidemia: Status: Acute (4) CKD (chronic kidney disease) stage 3, GFR 30-59 ml/min: Status: Acute Plan 82-year-old female with history of CVA in 2019, CAD with history ME and cardiac arrest in 10/2019, carotid arterial disease s/p right carotid endarterectomy, anxiety, hypertension, anxiety, hyperlipidemia, CKD stage 4, arthritis on Plaquenil, chronic leukocytosis, thrombocytopenia, history of nephrolithiasis admitted for suspected pyelonephritis, obstructive uropathy. 1.Acute pyelonephritis secondary to obstructive uropathy -continue empiric ceftriaxone -for stenting later today -moderate but acceptable cardiovascular risk for planned procedure. Can proceed as outlined. There are no medically prohibitive issues at this time 2.Hypertension -poorly control likely secondary to pain -adjust as indicated after stenting 3.CKD stage 4 -renal function baseline -follow renals/divalents 1.Arthritis -chronic leukocytosis likely related to prednisone use -continue hydroxychloroquine DVT prophylaxis- compression therapy in case of procedure tomorrow Full code Requires ongoing hospitalization for IV antibiotics to treat acute pyelonephritis; needs to have stone removal with stenting later today Time Spent With Patient Time: Total time managing care of this patient today ____ minutes. Quality Stroke Does the patient have a stroke diagnosis?: No VTE Prior VTE?: No VTE Risk Level:: Medical - moderate - high VTE Device Contraindication: N/A - Device Ordered VTE Drug Contraindication: Treatment Not Indicated
--- NOTE | 2022-04-28 18:24 | PC.NURSE ---
Pt off the unit at this time for procedure.
[2022-04-28] MEDS: levoFLOXacin/D5W 500 MG/100 ML PIGGYBACK 100 MG IV (18:51)
[2022-04-28] MEDS: Acetaminophen 1,000 MG/100 ML PIGGYBACK 400 MG IV (19:12)
--- NOTE | 2022-04-28 19:51 | MHC.SHP ---
Pre-Procedural Eval Section A Date of Service: 04/28/22 The patient is an INPATIENT: Yes Changes since office visit: No Cold of Flu in the past 2 weeks, No New Medical Problems, No Changes in Medication and No Patient answered all questions The History & Physical has been completed within 30 days and I have reviewed it.: Yes Section B Chief Complaint: UTI, Obstructive uropathy Allergies: Allergies Allergy/AdvReac Type Severity Reaction Status Date / Time prochlorperazine Allergy Severe paralyzed Verified 04/01/22 15:46 [From Compazine] Plan Diagnosis/Plan: Unchanged (Cystoscopy right retrograde, right stent placement) I have reviewed the history and physical and performed a pertinent physical examination on my patient. No changes have occurred unless specified. Time Spent With Patient Time: Total time managing care of this patient today ____ minutes.
--- NOTE | 2022-04-28 19:58 | P.CONAN_ITS ---
[facility] Active Problems Active Problems: All Active Problems (Updated 04/28/22 @ 00:00 by Rebecca Sullivan MD) Ureteral stone (Acute) Hydronephrosis (Acute) Kidney stones (Acute) Pyelonephritis (Acute) Microscopic hematuria (Acute) Dysplastic nevus (Acute) Abscess of groin (Acute) CVA (cerebral vascular accident) (Acute) CAD (coronary artery disease) (Acute) Rotator cuff arthropathy of right shoulder (Acute) Carotid arterial disease (Acute) Pacemaker (Acute) Arthritis (Acute) Elevated WBC count (Acute) H/O: hysterectomy (Acute) Normal breast exam (Acute) Skin cancer (Acute) Annual physical exam (Acute) [place]ott of foot (Acute) Anxiety (Acute) HTN (hypertension) (Acute) Hyperlipidemia (Acute) CKD (chronic kidney disease) stage 3, GFR 30-59 ml/min (Acute) Callus of foot (Acute) Shoulder pain, left (Acute) Thrombocytopenia (Acute) Past Medical History Medical History Annual physical exam Anxiety Arthritis CAD (coronary artery disease) Callus of foot Carotid arterial disease CKD (chronic kidney disease) stage 3, GFR 30-59 ml/min [place] of foot CVA (cerebral vascular accident) Elevated WBC count History of kidney stones HTN (hypertension) Hyperlipidemia Normal breast exam Pacemaker Renal calculi Rotator cuff arthropathy of right shoulder Shoulder pain, left Skin cancer Ureteral tumor UTI (urinary tract infection) Family History Family History Father No problems noted. Mother Breast cancer Maternal Aunt Breast cancer Sister Breast cancer Uterine cancer Family history of problems with anesthesia: No Surgical History Surgical History H/O: hysterectomy History of Problems with Anesthesia: No Social History Social History Household Members: Spouse Household Members Other:: , daughter in [place] Housing: House Are you a primary med care manager to a significant other at home: No Do you presently have visiting nurse or other home services: No Alcohol intake: never Patient Tobacco Use Status: Never used Tobacco e-Cigarette/Vaping Use: Never Used Use of substances other than those prescribed or required for medical reasons: No Currently Displaying Signs/Symptoms of Drug Intoxication Withdrawal: No Any prior treatment program specific to substance use: No Have you been hit, kicked, punched, or otherwise hurt by someone within the past year? If so, by whom?: No Do you feel safe in your current relationship?: Yes Is there a partner from a previous relationship who is making you feel unsafe now?: No Are you made to feel afraid or neglected: No Advance Directives: No Advance Directives Information Provided: Yes Advance Directives on File: No Do you have thoughts of harming others: None Do you have a plan to hurt others: No Plan Recently lost weight without trying: No Eating poorly because of decreased appetite: No Nutrition Risks: No Nutritional Risk Patient : No : No Poor oral hygiene: No service: No Current occupational status: retired Cognitive needs: No Hearing needs: No Vision needs: Yes Meds Allergies Allergy/AdvReac Type Severity Reaction Status Date / Time prochlorperazine Allergy Severe paralyzed Verified 04/01/22 15:46 [From Compazine] Active Medications: Current Medications Acetaminophen (Acetaminophen 325 Mg Tablet) 650 mg PO Q6H PRN PRN Reason: Pain, Mild (Pain Scale 1-3) Allopurinol (Allopurinol 100 Mg Tablet) 50 mg PO DAILY [facility] Last Admin: 04/28/22 08:25 Dose: 50 mg Amlodipine Besylate (Amlodipine Besylate 5 Mg Tablet) 5 mg PO DAILY [facility]; Protocol Last Admin: 04/28/22 08:32 Dose: 5 mg Aspirin (Aspirin Enteric Coated 81 Mg Tablet.) 81 mg PO DAILY [facility] Last Admin: 04/28/22 08:25 Dose: 81 mg Atorvastatin Calcium (Atorvastatin Calcium 40 Mg Tablet) 40 mg PO DAILY [facility] Last Admin: 04/28/22 08:25 Dose: 40 mg Lactated Ringer's (Lr) 1,000 mls @ 100 mls/hr IVCONT .Q10H [facility] Last Infusion: 04/28/22 18:52 Dose: 0 mls/hr Morphine Sulfate (Morphine Sulfate 2 Mg/Ml Cartridge) 2 mg IVPUSH Q3H PRN; Protocol PRN Reason: Pain, Severe (Pain Scale 7-10) Last Admin: 04/28/22 13:09 Dose: 2 mg Ondansetron HCl (Ondansetron Hcl 4 Mg/2 Ml Vial) 4 mg IVPUSH Q8H PRN PRN Reason: Nausea and Vomiting Last Admin: 04/28/22 09:55 Dose: 4 mg Oxycodone HCl (Oxycodone Hcl Immed Release 5 Mg Tablet) 5 mg PO Q4H PRN PRN Reason: Pain, Moderate (Pain Scale 4-6 Last Admin: 04/28/22 08:25 Dose: 5 mg Sodium Chloride (0.9 % Sodium Chloride Flush 3 Ml Syringe) 3 ml IVFLUSH [facility] Last Admin: 04/28/22 17:05 Dose: 3 ml Home Medications Medication Instructions Recorded Confirmed Last Taken Type amlodipine 5 mg tablet 5 mg PO DAILY 04/15/21 04/27/22 Unknown History aspirin 81 mg tablet,delayed 81 mg PO DAILY 04/15/21 04/27/22 Unknown History release allopurinol 100 mg tablet 0.5 tab PO DAILY 10/06/21 04/27/22 Unknown History Exam Exam Date and Time: April 28, 20221957 Height,Weight and Vital Signs: Height 4 ft 11 in Weight 59.874 kg Last Vital Signs Temp 100 F 04/28/22 18:50 Pulse 92 04/28/22 18:50 Resp 16 04/28/22 18:50 BP 189/67 H 04/28/22 18:50 Pulse Ox 95 04/28/22 18:50 O2 Del Method 04/28/22 18:50 Pertinent Lab Results Pertinent Lab Results: Laboratory Tests 04/27/22 04/27/22 04/27/22 13:59 13:59 16:26 WBC 30.4 H* RBC 3.63 L Hgb 9.6 L Hct 31.0 L MCV 85.4 MCH 26.4 L MCHC 31.0 RDW 15.6 Plt Count 76 L MPV 13.1 H Immature Gran % (Auto) 4.3 H Neut % (Auto) 78.6 H Lymph % (Auto) 4.3 L [place] % (Auto) 12.1 H Eos % (Auto) 0.3 Baso % (Auto) 0.4 Lymph # (Auto) 1.3 [place] # (Auto) 3.7 H Eos # (Auto) 0.1 Baso # (Auto) 0.1 Abs Immat Gran (auto) 1.30 H Absolute Neuts (auto) 23.9 H Absolute Nucleated RBC 0.000 Nucleated RBC % (auto) 0.0 Neutrophils % (Manual) Band Neutrophils % Lymphocytes % (Manual) Monocytes % (Manual) Basophils % (Manual) Metamyelocytes % Myelocytes % Abs Neuts (Manual) Lymphocytes # (Manual) Monocytes # (Manual) Basophils # (Manual) Metamyelocytes # Myelocytes # Toxic Vacuolation Platelet Estimate Plt Morphology Comment RBC Morphology Hypochromasia Microcytosis Tear Drop Cells Shahla Cells Schistocytes Smear Tech's Comments VERIFIED Sodium 139 Potassium 4.6 Chloride 112 H Carbon Dioxide 16 L Anion Gap 16 BUN 37 H Creatinine 2.55 H Estim Creat Clear Calc 13.6 Estimated GFR 18 POC Glucose Random Glucose 160 H Lactic Acid Calcium 9.0 Magnesium 1.9 Total Bilirubin 0.5 Direct Bilirubin < 0.2 AST 15 ALT < 6 Alkaline Phosphatase 82 Total Protein 8.0 Albumin 4.7 Urine Color Yellow Urine Appearance Clear Urine pH 5.5 Ur Specific [place] 1.015 Urine Protein 300 (3+) H Urine Glucose (UA) 100 H Urine Ketones Negative Urine Blood Moderate (2+) H Urine Nitrite Negative Ur Leukocyte Esterase Moderate (2+) H Urine RBC >20 H Urine WBC >50 H Ur Squamous Epith Cells 3-5 Urine Bacteria None Seen Hyaline Casts 6-10 COVID-19 (ERI) COVID-19 Clin Com 04/27/22 04/27/22 04/28/22 16:40 17:41 06:15 WBC 38.9 H* RBC 3.04 L Hgb 8.1 L Hct 26.1 L MCV 85.9 MCH 26.6 L MCHC 31.0 RDW 15.7 Plt Count 59 L MPV 13.5 H Immature Gran % (Auto) Cancelled Neut % (Auto) Cancelled Lymph % (Auto) Cancelled [place] % (Auto) Cancelled Eos % (Auto) Cancelled Baso % (Auto) Cancelled Lymph # (Auto) Cancelled [place] # (Auto) Cancelled Eos # (Auto) Cancelled Baso # (Auto) Cancelled Abs Immat Gran (auto) Cancelled Absolute Neuts (auto) Cancelled Absolute Nucleated RBC 0.000 Nucleated RBC % (auto) 0.0 Neutrophils % (Manual) 68 Band Neutrophils % 3 Lymphocytes % (Manual) 4 L Monocytes % (Manual) 20 H Basophils % (Manual) 1 Metamyelocytes % 3 Myelocytes % 1 Abs Neuts (Manual) 27.6 H Lymphocytes # (Manual) 1.6 Monocytes # (Manual) 7.8 H Basophils # (Manual) 0.4 H Metamyelocytes # 1.2 Myelocytes # 0.4 Toxic Vacuolation PRESENT Platelet Estimate DECREASED Plt Morphology Comment NORMAL RBC Morphology NOTED Hypochromasia 1+ (5-14) Microcytosis 1+ (5-14) Tear Drop Cells 1+ (0-2) Shahla Cells 1+ (0-2) Schistocytes 1+ (0-2) Smear Tech's Comments Sodium Potassium Chloride Carbon Dioxide Anion Gap BUN Creatinine Estim Creat Clear Calc Estimated GFR POC Glucose Random Glucose Lactic Acid 1.1 Calcium Magnesium Total Bilirubin Direct Bilirubin AST ALT Alkaline Phosphatase Total Protein Albumin Urine Color Urine Appearance Urine pH Ur Specific [place] Urine Protein Urine Glucose (UA) Urine Ketones Urine Blood Urine Nitrite Ur Leukocyte Esterase Urine RBC Urine WBC Ur Squamous Epith Cells Urine Bacteria Hyaline Casts COVID-19 (ERI) Negative COVID-19 Clin Com See Note 04/28/22 04/28/22 06:15 11:06 WBC RBC Hgb Hct MCV MCH MCHC RDW Plt Count MPV Immature Gran % (Auto) Neut % (Auto) Lymph % (Auto) [place] % (Auto) Eos % (Auto) Baso % (Auto) Lymph # (Auto) [place] # (Auto) Eos # (Auto) Baso # (Auto) Abs Immat Gran (auto) Absolute Neuts (auto) Absolute Nucleated RBC Nucleated RBC % (auto) Neutrophils % (Manual) Band Neutrophils % Lymphocytes % (Manual) Monocytes % (Manual) Basophils % (Manual) Metamyelocytes % Myelocytes % Abs Neuts (Manual) Lymphocytes # (Manual) Monocytes # (Manual) Basophils # (Manual) Metamyelocytes # Myelocytes # Toxic Vacuolation Platelet Estimate Plt Morphology Comment RBC Morphology Hypochromasia Microcytosis Tear Drop Cells Shahla Cells Schistocytes Smear Tech's Comments Sodium 138 Potassium 4.3 Chloride 113 H Carbon Dioxide 14 L Anion Gap 15 BUN 34 H Creatinine 2.83 H Estim Creat Clear Calc 12.2 Estimated GFR 16 POC Glucose 134 H Random Glucose 138 H Lactic Acid Calcium 8.5 Magnesium Total Bilirubin Direct Bilirubin AST ALT Alkaline Phosphatase Total Protein Albumin Urine Color Urine Appearance Urine pH Ur Specific [place] Urine Protein Urine Glucose (UA) Urine Ketones Urine Blood Urine Nitrite Ur Leukocyte Esterase Urine RBC Urine WBC Ur Squamous Epith Cells Urine Bacteria Hyaline Casts COVID-19 (ERI) COVID-19 Clin Com Airway Mallampati Class: II TM Dist: >3cm Neck ROM: Full Partial: Lower Loose/Missing/Broken Teeth: No Heart: RRR Lungs: CTA Assessment and Plan Assessment Anesthesia Assessment: Anesthesia Plan Discussed and Chart Reviewed Final Anesthetic Review Family History of Problems with Anesthesia: No History of Problems with Anesthesia: No NPO: Yes ASA Class: IV Final Preanesthetic Review: No Changes in Pt Med Stat, Meds/Allgs Chart Reviewed, Consent Obtained/Reviewed and Anes Risks/Benef Reviewed Patient Risk: High Procedure Risk: Low Anesthetic Plan Anesthetic Plan: GA Disposition: Standard PACU
--- NOTE | 2022-04-28 20:43 | W.PM.OPN ---
Operative Note Operative Note Date of Service: 04/28/22 Narrative: PreOperative Diagnosis: Right distal ureteric stone with hydronephrosis Post Operative Diagnosis: Right distal ureteric stone with hydronephrosis Procedure: Cystoscopy, right retrograde, right stent placement Surgeon: Dr Humble Orlando Anesthesia: Sedation Indications for procedure: Right distal ureteric stone with hydronephrosis in setting of elevated white count Procedure: After informed consent was verified the patient was brought to the operating room and placed in a supine position. Anesthesia was administered per protocol. The patient was placed in modified dorsal lithotomy position and prepped and draped in a sterile fashion. A safety pause time-out was performed. Laterality of procedure and antibiotics were confirmed, appropriate imaging was available A 22 Lithuanian cystoscope was introduced per urethra. No abnormality was noted of urethra or bladder. Both ureteric orifices were seen in a normal position. The right ureter was cannulated with an open ended catheter and a retrograde examination was performed. Stone was present at the right ureteric orifice . A Sensor guidewire was placed under fluoroscopy and a good coil was seen within the renal pelvis. The open-ended catheter was placed up the renal pelvis. Sensor wire was removed. Aspiration samples obtained and sent for culture. Urine was not grossly contaminated. A 6 Lithuanian by 22 cm double J stent was advanced over the wire and up to the level of the renal pelvis under fluoroscopic and direct visualization. The stent was seen with appropriate coil within the renal pelvis and in the bladder after deployment. The patient tolerated the procedure well and was transferred in a stable condition to the recovery area. Pathology: None Drains: Stent as above
[2022-04-28] MEDS: Acetaminophen 325 MG TABLET 650 MG PO (22:21)
[2022-04-28] MEDS: Phenazopyridine HCL 100 MG TABLET PO (22:21)
[2022-04-29 03:06] VITALS: BP 138/63; PULSE 82; RESP 17; TEMP 36.9; O2SAT 95
[2022-04-29 07:37] VITALS: BP 157/77; PULSE 100; RESP 18; TEMP 36.5; O2SAT 94
[2022-04-29] MEDS: 0.9 % Sodium Chloride Flush 3 ML SYRINGE IVFLUSH ×3 (07:48→20:43)
[2022-04-29 08:45] LABS: Basophils Absolute Auto 0.1 X10*3/uL (0.0-0.2); Basophils Percent Auto 0.2 % (0-2); Eosinophils Absolute Auto 0.1 X10*3/uL (0.0-0.4); Eosinophils Percent Auto 0.4 % (0-4); Hematocrit 25.2 % (37.0-47.0); Imm Gran Abs Auto 0.85 X10*3/uL (0.00-0.03); Imm Gran Pct Auto 2.7 % (0.0-0.4); Lymphocytes Absolute Auto 1.7 X10*3/uL (1.2-4.9); Lymphocytes Percent Auto 5.3 % (20-40); MANUAL DIFF FLAG SCAN; Mean Corpuscular HGB Conc 31.7 g/dl (31.0-35.0); Mean Corpuscular Hemoglobin 26.8 pg (27.0-33.0); Mean Corpuscular Volume 84.3 fL (80.0-98.0); Mean Platelet Volume 13.8 fL (9.4-12.3); Monocytes Absolute Auto 6.9 X10*3/uL (0.1-1.2); Monocytes Percent Auto 21.4 % (2-11); Neutrophils Absolute Auto 22.4 x10*3/uL (2.0-8.3); Red Blood Count 2.99 X10*6/uL (4.20-5.50); Red Cell Distribution Width 15.7 % (11.0-16.0); SCAN SMEAR FLAG 1
[2022-04-29 08:52] LABS: Platelet Count 60 X10*3/uL (160-400)
[2022-04-29 08:58] LABS: Alanine Aminotransferase < 6 U/L (0-31); Albumin Level 3.8 g/dL (3.5-5.0); Alkaline Phosphatase 68 U/L (39-117); Anion Gap 13 (12-20); Aspartate Amino Transferase 15 U/L (5-31); Bilirubin Total 0.4 mg/dL (0.0-1.0); Blood Urea Nitrogen 37 mg/dL (9-16); Calcium 8.4 mg/dL (8.4-10.2); Carbon Dioxide 16 mmol/L (22-29); Chloride 111 mmol/L (96-108); Estimated Glomerular Filt Rate 13; Glucose Random 104 mg/dL (60-115); Potassium 4.4 mmol/L (3.3-5.1); Sodium 136 mmol/L (135-145); Total Protein 6.4 g/dL (6.5-8.0)
[2022-04-29] MEDS: Aspirin Enteric Coated 81 MG TABLET.DR PO (09:26)
[2022-04-29] MEDS: allopurinoL 100 MG TABLET 50 MG PO (09:26)
[2022-04-29] MEDS: Atorvastatin Calcium 40 MG TABLET PO (09:27)
[2022-04-29] MEDS: amLODIPine Besylate 5 MG TABLET PO (09:27)
[2022-04-29] MEDS: Lactated Ringers 1,000 ML 100 ML IVCONT (09:34)
[2022-04-29 11:14] LABS: SLIDE REVIEW VERIFIED
[2022-04-29 12:00] VITALS: BP 135/71; PULSE 78; RESP 16; TEMP 36.9; O2SAT 96
--- NOTE | 2022-04-29 13:26 | MHC.CM.PN ---
Per RN's request, CM met with Patient at bedside. Patient expressed a variety of concerns/worries regarding her past medical history, current struggles and her 's need for hip surgery. Apparently she and her got involved with [facility] and now the Surgeon that her wants to do his hip surgery is not able to do it. CM has reached out to [facility] [employer] via [place] text and a formal faxed referral to them, requesting their assistance to address Patient's financial questions. CM will follow further as needed.
[2022-04-29 14:58] VITALS: BP 108/57; PULSE 98; RESP 16; TEMP 36.1; O2SAT 93
--- NOTE | 2022-04-29 16:26 | P.PNIM_ITS ---
Subjective Subjective Date of Service: 04/29/22 Interval History: Pain markedly improved after procedure no acute issues overnight Review of Systems Denies chest pain Denies shortness of breath Admits nausea no vomiting Denies fever chills Physical Exam Vital Signs: Vital Signs: Last Vital Signs Temp 97 F 04/29/22 14:58 Pulse 98 04/29/22 14:58 Resp 16 04/29/22 14:58 BP 108/57 L 04/29/22 14:58 Pulse Ox 93 04/29/22 14:58 O2 Del Method 04/29/22 14:58 O2 Flow Rate 2 04/28/22 23:05 BMI result Body Mass Index 26.6 Const: Other: Awake alert uncomfortable appearing the bed Resp: Other: Clear to auscultation bilaterally no rales rhonchi wheezes Cardio: Other: No S4; positive S1-S2; no S3 murmurs rubs or gallops Back/Spine/Pelvis: Other: Right CVA tenderness Extrem: Other: No edema bilaterally Objective Data Active Medications Acetaminophen (Acetaminophen 325 Mg Tablet) 650 mg PO Q6H PRN PRN Reason: Pain, Mild (Pain Scale 1-3) Allopurinol (Allopurinol 100 Mg Tablet) 50 mg PO DAILY [facility] Last Admin: 04/29/22 09:37 Dose: 50 mg Documented By: ANTONELLA Amlodipine Besylate (Amlodipine Besylate 5 Mg Tablet) 5 mg PO DAILY [facility]; Protocol Last Admin: 04/29/22 09:37 Dose: 5 mg Documented By: ANTONELLA Aspirin (Aspirin Enteric Coated 81 Mg Tablet.Dr) 81 mg PO DAILY [facility] Last Admin: 04/29/22 09:26 Dose: 81 mg Documented By: ANTONELLA Atorvastatin Calcium (Atorvastatin Calcium 40 Mg Tablet) 40 mg PO DAILY [facility] Last Admin: 04/29/22 09:37 Dose: 40 mg Documented By: ANTONELLA Lactated Ringer's (Lr) 1,000 mls @ 100 mls/hr IVCONT .Q10H [facility] Last Admin: 04/29/22 09:34 Dose: 100 mls/hr Documented By: ANTONELLA Morphine Sulfate (Morphine Sulfate 2 Mg/Ml Cartridge) 2 mg IVPUSH Q3H PRN; Protocol PRN Reason: Pain, Severe (Pain Scale 7-10) Last Admin: 04/28/22 13:09 Dose: 2 mg Documented By: DARI Ondansetron HCl (Ondansetron Hcl 4 Mg/2 Ml Vial) 4 mg IVPUSH Q8H PRN PRN Reason: Nausea and Vomiting Last Admin: 04/28/22 09:55 Dose: 4 mg Documented By: DARI Oxycodone HCl (Oxycodone Hcl Immed Release 5 Mg Tablet) 5 mg PO Q4H PRN PRN Reason: Pain, Moderate (Pain Scale 4-6 Last Admin: 04/28/22 22:18 Dose: 5 mg Documented By: TUCKER Sodium Chloride (0.9 % Sodium Chloride Flush 3 Ml Syringe) 3 ml IVFLUSH QSHIFT HIRA Last Admin: 04/29/22 09:34 Dose: 3 ml Documented By: ANTONELLA Tramadol HCl (Tramadol Hcl 50 Mg Tablet) 50 mg PO Q6H PRN PRN Reason: Pain, Moderate (Pain Scale 4-6 Labs 04/29/22 08:14 04/29/22 08:14 Labs: Laboratory Results - last 24 hr 04/29/22 04/29/22 08:14 08:14 MCV 84.3 MCH 26.8 L MCHC 31.7 RDW 15.7 Plt Count 60 L MPV 13.8 H Immature Gran % (Auto) 2.7 H Neut % (Auto) 70.0 Lymph % (Auto) 5.3 L [place] % (Auto) 21.4 H Eos % (Auto) 0.4 Baso % (Auto) 0.2 Lymph # (Auto) 1.7 [place] # (Auto) 6.9 H Eos # (Auto) 0.1 Baso # (Auto) 0.1 Abs Immat Gran (auto) 0.85 H Absolute Neuts (auto) 22.4 H Absolute Nucleated RBC 0.000 Nucleated RBC % (auto) 0.0 Smear Tech's Comments VERIFIED Anion Gap 13 Estim Creat Clear Calc 10.0 Estimated GFR 13 Random Glucose 104 Calcium 8.4 Total Bilirubin 0.4 AST 15 ALT < 6 Alkaline Phosphatase 68 Total Protein 6.4 L Albumin 3.8 Microbiology Microbiology Results: Microbiology 04/28/22 20:41 Urine Culture - Preliminary Urine Other - Kidney Right No growth to date. 04/27/22 Unknown Urine Culture - Final Urine clean catch - Urine brooks top 04/27/22 16:49 Blood Culture - Preliminary Blood - Venous No growth after 24 hours. 04/27/22 16:40 Blood Culture - Preliminary Blood - Venous No growth after 24 hours. Assessment and Plan (1) Pyelonephritis: Status: Acute (2) HTN (hypertension): Status: Acute (3) ZAN (acute kidney injury): Status: Acute Plan 82-year-old female with history of CVA in 2019, CAD with history [place] and cardiac arrest in 10/2019, carotid arterial disease s/p right carotid endarterectomy, anxiety, hypertension, anxiety, hyperlipidemia, CKD stage 4, arthritis on Plaquenil, chronic leukocytosis, thrombocytopenia, history of nephrolithiasis admitted for suspected pyelonephritis, obstructive uropathy. 1.Acute pyelonephritis secondary to obstructive uropathy -continue empiric ceftriaxone -await cultures 2.Hypertension -acceptable control after stent -adjust as indicated 3. ZAN -creatinine increasing after procedure -consult Renal in a.m. DVT prophylaxis- compression therapy in case of procedure tomorrow Full code Requires ongoing hospitalization for IV antibiotics to treat acute pyelonephritis; needs to have stone removal with stenting later today Time Spent With Patient Time: Total time managing care of this patient today ____ minutes. Quality Stroke Does the patient have a stroke diagnosis?: No VTE Prior VTE?: No VTE Risk Level:: Medical - moderate - high VTE Device Contraindication: N/A - Device Ordered VTE Drug Contraindication: Treatment Not Indicated
[2022-04-29 19:30] VITALS: BP 162/66; PULSE 100; RESP 16; TEMP 37.2; O2SAT 95
[2022-04-29 23:12] VITALS: BP 148/74; PULSE 99; RESP 1; TEMP 37; O2SAT 98
[2022-04-30 03:55] VITALS: BP 148/64; PULSE 85; RESP 20; TEMP 37; O2SAT 98
[2022-04-30 06:25] LABS: Basophils Absolute Auto 0.1 X10*3/uL (0.0-0.2); Basophils Percent Auto 0.3 % (0-2); Eosinophils Absolute Auto 0.2 X10*3/uL (0.0-0.4); Eosinophils Percent Auto 0.7 % (0-4); Hematocrit 23.8 % (37.0-47.0); Hemoglobin 7.4 g/dl (12.0-16.0); Imm Gran Abs Auto 1.13 X10*3/uL (0.00-0.03); Imm Gran Pct Auto 4.2 % (0.0-0.4); Lymphocytes Absolute Auto 1.7 X10*3/uL (1.2-4.9); Lymphocytes Percent Auto 6.4 % (20-40); MANUAL DIFF FLAG SCAN; Mean Corpuscular HGB Conc 31.1 g/dl (31.0-35.0); Mean Corpuscular Hemoglobin 26.6 pg (27.0-33.0); Mean Corpuscular Volume 85.6 fL (80.0-98.0); Mean Platelet Volume 14.2 fL (9.4-12.3); Monocytes Absolute Auto 6.6 X10*3/uL (0.1-1.2); Monocytes Percent Auto 24.1 % (2-11); Neutrophils Absolute Auto 17.5 x10*3/uL (2.0-8.3); Neutrophils Percent Auto 64.3 % (45-73); Red Blood Count 2.78 X10*6/uL (4.20-5.50); Red Cell Distribution Width 15.6 % (11.0-16.0); SCAN SMEAR FLAG 1; White Blood Count 27.2 X10*3/uL (4.8-10.8)
[2022-04-30 06:26] LABS: Platelet Count 55 X10*3/uL (160-400)
[2022-04-30 06:41] LABS: Alanine Aminotransferase < 6 U/L (0-31); Albumin Level 3.6 g/dL (3.5-5.0); Alkaline Phosphatase 58 U/L (39-117); Anion Gap 15 (12-20); Aspartate Amino Transferase 14 U/L (5-31); Bilirubin Total 0.3 mg/dL (0.0-1.0); Blood Urea Nitrogen 34 mg/dL (9-16); Calcium 8.2 mg/dL (8.4-10.2); Carbon Dioxide 16 mmol/L (22-29); Chloride 112 mmol/L (96-108); Creatinine Clr Calc Pharmacy 10.5; Estimated Glomerular Filt Rate 13; Glucose Fasting 119 mg/dL (60-99); Potassium 4.2 mmol/L (3.3-5.1); Sodium 139 mmol/L (135-145); Total Protein 6.1 g/dL (6.5-8.0)
[2022-04-30 06:43] LABS: SLIDE REVIEW VERIFIED
[2022-04-30 07:29] VITALS: BP 145/67; PULSE 94; RESP 12; TEMP 37.2; O2SAT 96
--- NOTE | 2022-04-30 08:06 | HO.POSTANES ---
Post Anesthesia Evaluation Post Anesthesia Evaluation Vital Signs: Vital Signs Temp Pulse Resp BP Pulse Ox O2 Del Method 04/30/22 07:29 98.9 F 94 12 145/67 H 96 Room Air 04/30/22 03:55 98.6 F 85 20 148/64 H 98 Room Air 04/29/22 23:12 98.6 F 99 1 L 148/74 H 98 Room Air Anesthesia: General Mental Status: Awake Pain Control: Satisfactory Nausea/Vomiting: None Hydration: Adequate Anesthesia-Related Issues: No Anes. Related Issues
[2022-04-30] MEDS: allopurinoL 100 MG TABLET 50 MG PO (10:26)
[2022-04-30] MEDS: Atorvastatin Calcium 40 MG TABLET PO (10:27)
[2022-04-30] MEDS: amLODIPine Besylate 5 MG TABLET PO (10:27)
[2022-04-30] MEDS: Aspirin Enteric Coated 81 MG TABLET.DR PO (10:27)
[2022-04-30] MEDS: 0.9 % Sodium Chloride Flush 3 ML SYRINGE IVFLUSH (10:29)
--- NOTE | 2022-04-30 10:57 | MHC.CM.PN ---
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
[2022-04-30 11:47] VITALS: BP 140/60; PULSE 114; RESP 16; TEMP 37.3; O2SAT 91
--- NOTE | 2022-04-30 13:00 | P.CONNP_ITS ---
History of Present Illness Reason for Consult Consult date: 04/30/22 Chief Complaint Chief complaint: UTI, Obstructive uropathy History of Present Illness Narrative: 82 year old patient with history of CKD admitted with nephrolithiasis and pyelonephritis and found to have worsening kidney function.CT scan of the abdomen showed mild right-sided hydroureteronephrosis with several had besides stones in the right mid ureter, largest 4 mm in size and a more distal 4 x 6 mm stone proximal to the UVJ. She underwent placement of a right ureteral stent. She tells me she has been following with a care navigator at the [facility] but has not seen any care navigator locally after she moved to [place]. At the time of the consultation she denies fever, chills, chest pain, shortness of breath, vomiting, diarrhea or abdominal pain. Review of Systems Review of Systems 10 points ROS negative except for pertinent in HPI [facility] Past Medical History Medical History Annual physical exam Anxiety Arthritis CAD (coronary artery disease) Callus of foot Carotid arterial disease CKD (chronic kidney disease) stage 3, GFR 30-59 ml/min Stevens of foot CVA (cerebral vascular accident) Elevated WBC count History of kidney stones HTN (hypertension) Hyperlipidemia Normal breast exam Pacemaker Renal calculi Rotator cuff arthropathy of right shoulder Shoulder pain, left Skin cancer Ureteral tumor UTI (urinary tract infection) Family History Family History Father No problems noted. Mother Breast cancer Maternal Aunt Breast cancer Sister Breast cancer Uterine cancer Surgical History Surgical History H/O: hysterectomy Social History Social History Household Members: Spouse Household Members Other:: , daughter in [place] Housing: House Are you a primary long term care pharmacist to a significant other at home: No Do you presently have visiting nurse or other home services: No Alcohol intake: never Patient Tobacco Use Status: Never used Tobacco e-Cigarette/Vaping Use: Never Used Use of substances other than those prescribed or required for medical reasons: No Currently Displaying Signs/Symptoms of Drug Intoxication Withdrawal: No Any prior treatment program specific to substance use: No Have you been hit, kicked, punched, or otherwise hurt by someone within the past year? If so, by whom?: No Do you feel safe in your current relationship?: Yes Is there a partner from a previous relationship who is making you feel unsafe now?: No Are you made to feel afraid or neglected: No Advance Directives: No Advance Directives Information Provided: Yes Advance Directives on File: No Do you have thoughts of harming others: None Do you have a plan to hurt others: No Plan Recently lost weight without trying: No Eating poorly because of decreased appetite: No Nutrition Risks: No Nutritional Risk Patient : No : No Poor oral hygiene: No service: No Current occupational status: retired Cognitive needs: No Hearing needs: No Vision needs: Yes Meds Allergies Allergy/AdvReac Type Severity Reaction Status Date / Time prochlorperazine Allergy Severe paralyzed Verified 04/01/22 15:46 [From Compazine] Active Medications: Current Medications Acetaminophen (Acetaminophen 325 Mg Tablet) 650 mg PO Q6H PRN PRN Reason: Pain, Mild (Pain Scale 1-3) Allopurinol (Allopurinol 100 Mg Tablet) 50 mg PO DAILY [facility]S [facility]CLUDE 234 BEDS AT THE [facility] Last Admin: 04/30/22 10:26 Dose: 50 mg Amlodipine Besylate (Amlodipine Besylate 5 Mg Tablet) 5 mg PO DAILY [facility]S INCLUDE 234 BEDS AT THE [facility]; Protocol Last Admin: 04/30/22 10:27 Dose: 5 mg Aspirin (Aspirin Enteric Coated 81 Mg Tablet.Dr) 81 mg PO DAILY COUNTS INCLUDE 234 BEDS AT THE [facility] Last Admin: 04/30/22 10:27 Dose: 81 mg Atorvastatin Calcium (Atorvastatin Calcium 40 Mg Tablet) 40 mg PO DAILY [facility]S [facility]CLUDE 234 BEDS AT THE [facility] Last Admin: 04/30/22 10:27 Dose: 40 mg Morphine Sulfate (Morphine Sulfate 2 Mg/Ml Cartridge) 2 mg IVPUSH Q3H PRN; Protocol PRN Reason: Pain, Severe (Pain Scale 7-10) Last Admin: 04/28/22 13:09 Dose: 2 mg Ondansetron HCl (Ondansetron Hcl 4 Mg/2 Ml Vial) 4 mg IVPUSH Q8H PRN PRN Reason: Nausea and Vomiting Last Admin: 04/28/22 09:55 Dose: 4 mg Oxycodone HCl (Oxycodone Hcl Immed Release 5 Mg Tablet) 5 mg PO Q4H PRN PRN Reason: Pain, Moderate (Pain Scale 4-6 Last Admin: 04/28/22 22:18 Dose: 5 mg Sodium Chloride (0.9 % Sodium Chloride Flush 3 Ml Syringe) [facility] Last Admin: 04/30/22 10:29 Dose: 3 ml Tramadol HCl (Tramadol Hcl 50 Mg Tablet) 50 mg PO Q6H PRN PRN Reason: Pain, Moderate (Pain Scale 4-6 Home Medications Medication Instructions Recorded Confirmed Last Taken Type amlodipine 5 mg tablet 5 mg PO DAILY 04/15/21 04/27/22 Unknown History aspirin 81 mg tablet,delayed 81 mg PO DAILY 04/15/21 04/27/22 Unknown History release allopurinol 100 mg tablet 0.5 tab PO DAILY 10/06/21 04/27/22 Unknown History Physical Exam Vital Signs: Last Vital Signs Temp 99.1 F 04/30/22 11:47 Pulse 114 H 04/30/22 11:47 Resp 16 04/30/22 11:47 BP 140/60 H 04/30/22 11:47 Pulse Ox 91 L 04/30/22 11:47 O2 Del Method 04/30/22 11:47 O2 Flow Rate 2 04/28/22 23:05 BMI result Body Mass Index 26.6 Const General: comfortable and no acute distress HEENT Head: Yes normocephalic and Yes atraumatic Neck Neck: Yes supple Resp Auscultation: clear to auscultation bilaterally Cardio Heart sounds: S1 normal heart sound present and S2 normal heart sound present GI Palpation (GI): Soft to palpation and nontender Extrem General: Yes no pedal edema Results Lab Results 04/30/22 05:54 04/30/22 05:54 Lab results: Chemistry 04/27/22 04/28/22 04/29/22 13:59 06:15 08:14 Sodium 139 138 136 Potassium 4.6 4.3 4.4 Carbon Dioxide 16 L 14 L 16 L BUN 37 H 34 H 37 H Creatinine 2.55 H 2.83 H 3.44 H Calcium 9.0 8.5 8.4 04/30/22 05:54 Sodium 139 Potassium 4.2 Carbon Dioxide 16 L BUN 34 H Creatinine 3.31 H Calcium 8.2 L Hematology 04/27/22 04/28/22 04/29/22 13:59 06:15 08:14 WBC 30.4 H* 38.9 H* 32.0 H* Hgb 9.6 L 8.1 L 8.0 L Plt Count 76 L 59 L 60 L 04/30/22 05:54 WBC 27.2 H Hgb 7.4 L Plt Count 55 L Urinalysis 04/27/22 16:26 Urine Color Yellow Urine Appearance Clear Urine pH 5.5 Ur Specific [place] 1.015 Urine Protein 300 (3+) H Urine Glucose (UA) 100 H Urine Ketones Negative Urine Blood Moderate (2+) H Urine Nitrite Negative Ur Leukocyte Esterase Moderate (2+) H Urine RBC >20 H Urine WBC >50 H Ur Squamous Epith Cells 3-5 Hyaline Casts 6-10 Assessment and Plan (1) ZAN (acute kidney injury): Status: Acute (2) Hydronephrosis: Status: Acute (3) Kidney stones: Status: Acute (4) CKD (chronic kidney disease) stage 3, GFR 30-59 ml/min: Status: Acute Plan ZAN due to obstructive uropathy CT scan showed right hydronephrosis due to nephrolithiasis s/p ureteral stent placement h/o CKD baseline Scr ~ 2.2 mg/dl REC no need for IVF follow h/h blood transfusion as needed will need outpatient renal f/u follow kidney function and electrolytes Time Spent With Patient Time: Total time managing care of this patient today ____ minutes. Procedures Date of Service Date of Service: 04/30/22
--- NOTE | 2022-04-30 13:06 | P.DS_ITS ---
DS: Providers Provider Date of Service: 04/30/22 Date of admission: 04/27/22 18:21 Date of discharge: 04/30/22 Primary care physician: Mary Kay Mallory MD Consults: 04/27/22 18:30 Consult to Urology Routine Consulting Provider: Payton Cooper Reason for consultation: obstructive uropathy 04/30/22 07:21 Consult to Nephrology Routine Consulting Provider: Balwinder Pratt Reason for consultation: ZAN Has provider been notified: Yes DS: Diagnosis Discharge Diagnosis (1) Pyelonephritis: Status: Acute (2) HTN (hypertension): Status: Acute (3) ZAN (acute kidney injury): Status: Acute DS: Summary Hospital Course Hospital Course: 82-year-old female with history of CVA in 2018, CAD with history [place] and cardiac arrest in 10/2019, carotid arterial disease s/p right carotid endarterectomy, anxiety, hypertension, anxiety, hyperlipidemia, CKD stage 4, arthritis on Plaquenil, chronic leukocytosis, thrombocytopenia, history of nephrolithiasis presented to the ED earlier today for evaluation of right lower quadrant pain that started this morning.? There is no radiation of the pain.? She rates the pain as a 3-4/10.? Denies any fevers, chills, nausea, vomiting, flank pain, dysuria, hematuria, increased urinary frequency, decreased urinary output, constipation, melena, hematochezia, diarrhea, shortness of breath, chest pain.? In the ED, patient tachycardic to 113, tachypneic to 24, hypertensive to 180/74.? Leukocytosis 30.4 (baseline around 27).? H/H 9.6/31.0%, baseline.? Platelets 76, baseline.? Renal function baseline, electrolytes normal.? Glucose 160.? Lactic acid 1.1.? UA significant for 2+ leukocytes, 2+ blood, 3+ protein, urinary sediment, negative for bacteria.? CT of the abdomen/pelvis showing mild right hydroureteronephrosis with several [id number] stones in the right mid ureter the largest measuring 4 mm and a more distal 4 x 6 mm stone located several cm proximal to the UVJ with mild right-sided perinephric fat stranding.? No other acute intra-abdominal abnormalities.? Patient treated empirically in the ED with 1 g ceftriaxone, ondansetron, morphine, as well as 1 L normal saline. Hospital Course Patient admitted to the general medical floor and seen by Urology. Antibiotics were switched from ceftriaxone to Levaquin. On 04/28/2022 patient underwent cystoscopy right retrograde with a right stent placement by Dr. Orlando. Immediately post procedure her pain was essentially gone. She continued to range main afebrile on antibiotics. Her creatinine did rise slightly postprocedure and Nephrology was consulted. She was deemed appropriate for discharge and can follow up as an outpatient with Nephrology. She will complete a 10 day course of Levaquin Time Spent with Patient Time attestation: Total time managing care of this patient today ____ minutes. Discharge coordination time: Greater than 30 minutes Quality: Safe Use of Opioids Does Pt have an Active Cancer Diagnosis on the Problem List?: No Quality: Stroke Does the patient have a stroke diagnosis?: No Physical Exam Vital Signs: Vital Signs: Last Vital Signs Temp 99.1 F 04/30/22 11:47 Pulse 114 H 04/30/22 11:47 Resp 16 04/30/22 11:47 BP 140/60 H 04/30/22 11:47 Pulse Ox 91 L 04/30/22 11:47 O2 Del Method 04/30/22 11:47 O2 Flow Rate 2 04/28/22 23:05 BMI result Body Mass Index 26.6 Const: Other: Awake alert uncomfortable appearing the bed Resp: Other: Clear to auscultation bilaterally no rales rhonchi wheezes Cardio: Other: No S4; positive S1-S2; no S3 murmurs rubs or gallops Back/Spine/Pelvis: Other: Right CVA tenderness Extrem: Other: No edema bilaterally DS: Data Data Completed and Pending Labs on day of discharge: Laboratory Results - last 24 hr 04/30/22 04/30/22 05:54 05:54 WBC 27.2 H RBC 2.78 L Hgb 7.4 L Hct 23.8 L MCV 85.6 MCH 26.6 L MCHC 31.1 RDW 15.6 Plt Count 55 L MPV 14.2 H Immature Gran % (Auto) 4.2 H Neut % (Auto) 64.3 Lymph % (Auto) 6.4 L [place] % (Auto) 24.1 H Eos % (Auto) 0.7 Baso % (Auto) 0.3 Lymph # (Auto) 1.7 [place] # (Auto) 6.6 H Eos # (Auto) 0.2 Baso # (Auto) 0.1 Abs Immat Gran (auto) 1.13 H Absolute Neuts (auto) 17.5 H Absolute Nucleated RBC 0.000 Nucleated RBC % (auto) 0.0 Smear Tech's Comments VERIFIED Sodium 139 Potassium 4.2 Chloride 112 H Carbon Dioxide 16 L Anion Gap 15 BUN 34 H Creatinine 3.31 H Estim Creat Clear Calc 10.5 Estimated GFR 13 Fasting Glucose 119 H Calcium 8.2 L Total Bilirubin 0.3 AST 14 ALT < 6 Alkaline Phosphatase 58 Total Protein 6.1 L Albumin 3.6 Preliminary micro results at discharge 04/27/22 16:49 Blood Culture - Preliminary Blood - Venous No growth after 48 hours. 04/27/22 16:40 Blood Culture - Preliminary Blood - Venous No growth after 48 hours. 04/28/22 20:41 Urine Culture - Preliminary Urine Other - Kidney Right No growth to date. Discharge Plan Discharge Anticipated Discharge Date/Time: 04/30/22 13:02 Patient Disposition: Home, Self-Care Discharge Diagnosis: Pyelonephritis/hydronephrosis secondary to ureteral stone Referrals: Mary Kay Mallory MD [Primary Care Provider] - 1 Week Discharge Medications: New levofloxacin 250 mg tablet 250 mg PO DAILY 10 Days Qty: 10 0RF Continued (DME) transport wheelchair See Rx Instructions .Route .MEDSUPPLY Qty: 1 0RF Rx Instructions: As directed atorvastatin 40 mg tablet 40 mg PO DAILY Qty: 90 3RF (DME) rollator See Rx Instructions .Route .MEDSUPPLY Qty: 1 0RF Rx Instructions: Rollator with left arm platform support (DME) electric scooter See Rx Instructions .Route .MEDSUPPLY Qty: 1 0RF Rx Instructions: [facility] allopurinol 100 mg tablet 0.5 tab PO DAILY aspirin 81 mg tablet,delayed release (DR/EC) 81 mg PO DAILY amlodipine 5 mg tablet 5 mg PO DAILY Discharge Orders: Discharge Order (Routine); Ordered 04/30/22 Ordered By: Nick Han Diet: Advance to usual diet Activity on Discharge: As tolerated Stand Alone Forms: Patient Portal Discharge page Care Plan Goals: Complete course of Levaquin 250 mg daily times 10 days Health Concerns: Dr. Pagan office will call you with an appointment for follow-up (nephrology) Plan of Treatment: Resume all pre-hospital medicines Assessment: See discharge summary
== END 2022-04-30 16:03 | disposition home or self-care (01) | DRG 660 ==
LOC: HO.ED 17:48 → HO.EDOVER 18:37 → HO.IMC 18:51
PROVIDERS: Nurse Practitioner Family; Physician Assistant; Urology; Admitting Provider Physician Assistant; Emergency Provider Internal Medicine; PCP Internal Medicine; Visit Provider Hospitalist
DX: N13.6 Pyonephrosis (principal); I69.354 Hemiplegia and hemiparesis following cerebral infarction affecting left non-dominant side; I25.10 Atherosclerotic heart disease of native coronary artery without angina pectoris; N18.4 Chronic kidney disease, stage 4 (severe); F41.9 Anxiety disorder, unspecified; I12.9 Hypertensive chronic kidney disease with stage 1 through stage 4 chronic kidney disease, or unspecified chronic kidney disease; E78.5 Hyperlipidemia, unspecified; N17.9 Acute kidney failure, unspecified; M19.90 Unspecified osteoarthritis, unspecified site; I25.2 Old myocardial infarction; Z20.822 Contact with and (suspected) exposure to COVID-19; Z86.74 Personal history of sudden cardiac arrest; Z95.0 Presence of cardiac pacemaker; Z88.8 Allergy status to other drugs, medicaments and biological substances; Z79.82 Long term (current) use of aspirin; Z79.899 Other long term (current) drug therapy
CPT/HCPCS: 36415; 74176; 80048; 80053; 80076; 81001; 82947; 83605; 83735; 85007; 85025; 85027; 87040; 87086; 87635; 93005; 99285; C1758; C1769; C2617; J0131; J0696; J1956; J2270; J2405; J3010; Q9967

== ENCOUNTER → 2022-05-05 10:56 | Outpatient (BNVA) | payer OTHER, SELFPAY | PROVIDERS: PCP Internal Medicine; Visit Provider Urology | DX: N13.2 Hydronephrosis with renal and ureteral calculous obstruction (principal); I12.9 Hypertensive chronic kidney disease with stage 1 through stage 4 chronic kidney disease, or unspecified chronic kidney disease; N18.4 Chronic kidney disease, stage 4 (severe); Z96.0 Presence of urogenital implants | CPT/HCPCS: Q3014 ==

== ENCOUNTER → 2022-05-12 13:33 | Outpatient (BNVA) | payer OTHER, SELFPAY | PROVIDERS: PCP Internal Medicine; Visit Provider Urology | DX: N12 Tubulo-interstitial nephritis, not specified as acute or chronic (principal); N20.0 Calculus of kidney; Z09 Encounter for follow-up examination after completed treatment for conditions other than malignant neoplasm; Z96.0 Presence of urogenital implants | CPT/HCPCS: 99212 ==

== ENCOUNTER 2022-05-17 11:49 | Day surgery (SDC) | payer OTHER, SELFPAY ==
[2022-05-17] VITALS (11 sets, daily range): BP systolic 100–159; BP diastolic 43–81; PULSE 94–108; RESP 16–22; TEMP 36.2–37.1; O2SAT 96–99; BMI 24.4
--- NOTE | ~2022-05-17 | FL_ITS ---
EXAMINATION: XR FLUOROSCOPY WITH IMAGES CLINICAL INFORMATION: Kidney stone COMPARISON: CT abdomen and pelvis 04/27/2022 and 04/28/2022 fluoroscopy TECHNIQUE: Fluoroscopy Supervised By: Dr. Darion Kate. Fluoroscopy Time: 7.6 seconds. Cumulative Dose: 2.00 mGy. Images: 1. FINDINGS: There is a single image obtained during the procedure and reveals ureters: within the right mid and distal ureter. FL/FL guidance in OR IMPRESSION: Fluoroscopy was provided to referring physician for right retrograde ureteral evaluation.
--- NOTE | 2022-05-17 12:42 | P.CONAN_ITS ---
HPI - Anesthesia Eval Consult details Narrative: cysto, retro, laser, stent. PMFSH Active Problems Active Problems: All Active Problems (Updated 05/17/22 @ 10:14 by Mary Kay Mallory MD) Thrombocytopenia (Acute) Abscess of groin (Acute) Dysplastic nevus (Acute) Microscopic hematuria (Acute) Pyelonephritis (Acute) CKD (chronic kidney disease) stage 3, GFR 30-59 ml/min (Acute) Nephrolithiasis (Acute) Subconjunctival hemorrhage of right eye (Acute) Ureteral stone with hydronephrosis (Acute) Ureteral stent present (Acute) Sjogren syndrome, unspecified (Acute) CVA (cerebral vascular accident) (Acute) CAD (coronary artery disease) (Acute) Rotator cuff arthropathy of right shoulder (Acute) Carotid arterial disease (Acute) Pacemaker (Acute) Arthritis (Acute) Elevated WBC count (Acute) H/O: hysterectomy (Acute) Normal breast exam (Acute) Skin cancer (Acute) Annual physical exam (Acute) [place] of foot (Acute) Anxiety (Acute) HTN (hypertension) (Acute) Hyperlipidemia (Acute) CKD (chronic kidney disease) stage 3, GFR 30-59 ml/min (Acute) Callus of foot (Acute) Shoulder pain, left (Acute) Past Medical History Medical History Annual physical exam Anxiety Arthritis CAD (coronary artery disease) Callus of foot Carotid arterial disease CKD (chronic kidney disease) stage 3, GFR 30-59 ml/min [place] of foot CVA (cerebral vascular accident) Elevated WBC count History of kidney stones HTN (hypertension) Hyperlipidemia Normal breast exam Pacemaker Renal calculi Rotator cuff arthropathy of right shoulder Shoulder pain, left Skin cancer Ureteral tumor UTI (urinary tract infection) Functional capacity: uses cane/walker Family History Family History Father No problems noted. Mother Breast cancer Maternal Aunt Breast cancer Sister Breast cancer Uterine cancer Family history of problems with anesthesia: No Surgical History Surgical History (Updated 05/17/22 @ 12:17 by Nneka Medina, RN) H/O: hysterectomy History of Nat fundoplication History of permanent cardiac pacemaker placement Hx of cystoscopy Hx of oral surgery Hx of tonsillectomy History of Problems with Anesthesia: No Social History Social History Household Members: Spouse Household Members Other:: , daughter in [place] Housing: House Are you a primary career placement services counselor to a significant other at home: No Do you presently have visiting nurse or other home services: No Alcohol intake: never Patient Tobacco Use Status: Never used Tobacco e-Cigarette/Vaping Use: Never Used Use of substances other than those prescribed or required for medical reasons: No Are you DNR?: No Advance Directives: No Advance Directives Information Provided: Yes service: No Current occupational status: retired Cognitive needs: No Hearing needs: No Vision needs: Yes Meds Allergies Allergy/AdvReac Type Severity Reaction Status Date / Time prochlorperazine Allergy Severe paralyzed Verified 05/17/22 12:10 [From Compazine] Home Medications Medication Instructions Recorded Confirmed Last Taken Type amlodipine 5 mg tablet 5 mg PO DAILY 04/15/21 05/17/22 Unknown History aspirin 81 mg tablet,delayed 81 mg PO DAILY 04/15/21 05/17/22 05/10/22 History release allopurinol 100 mg tablet 0.5 tab PO DAILY 10/06/21 05/17/22 Unknown History Exam Exam Date and Time: May 17, 2022 1242 Height,Weight and Vital Signs: Height 4 ft 11 in Weight 54.885 kg Last Vital Signs Temp 97.4 F 05/17/22 12:18 Pulse 102 H 05/17/22 12:18 Resp 17 05/17/22 12:18 BP 150/57 H 05/17/22 12:18 Pulse Ox 96 05/17/22 12:18 O2 Del Method 05/17/22 12:18 Airway Mallampati Class: II TM Dist: <=3cm Neck ROM: Full Loose/Missing/Broken Teeth: Yes and Lower Heart: ok Lungs: ok Assessment and Plan Assessment Anesthesia Assessment: Anesthesia Plan Discussed and Chart Reviewed Final Anesthetic Review Family History of Problems with Anesthesia: No History of Problems with Anesthesia: No NPO: No (Coffee w cream 7am.) ASA Class: IV Final Preanesthetic Review: No Changes in Pt Med Stat, Meds/Allgs Chart Reviewed, Consent Obtained/Reviewed and Anes Risks/Benef Reviewed Patient Risk: High Procedure Risk: Intermediate Anesthetic Plan Anesthetic Plan: GA and Agree w/ Assess. and Plan Disposition: Standard PACU
[2022-05-17] MEDS: Lactated Ringers 1,000 ML 50 ML IVCONT (13:00)
[2022-05-17 13:13] LABS: COVID-19 Test Negative (Negative); IDNOW Serial# 16C4AD1C
--- NOTE | 2022-05-17 13:37 | P.OP_ITS ---
Operative Note Operative Note Date of Service: 05/17/22 Narrative: PreOperative Diagnosis: distal right ureteric stone Post Operative Diagnosis: distal right ureteric stone Procedure: - cystoscopy, right retrograde - removal of right stent - right ureteroscopy, stone basketing Surgeon: Dr Humble [place] Anesthesia: General Indications for procedure: distal right ureteric stone. Stent placed a number of weeks ago. Infection has resolved. Here for cystoscopy stent removal, ureteroscopy stone basketing. Procedure: After informed consent was verified patient was brought to the operating placed in supine position. Anesthesia was administered per protocol. Patient was placed in modified dorsal lithotomy position and prepped and draped in a sterile fashion. Safety pause time-out and side of surgery confirmed. Antibiotics confirmed. 22 [place] cystoscope was inserted per urethra. Bladder was normal in its entirety. Stent emerging from right ureteric orifice. Retrograde examination performed around stent. A Sensor guidewire was placed up to the level of the renal pelvis under fluoroscopy. The indwelling stent was then removed. semi rigid ureteral scope placed. Small stone fragments encountered. Using 0 tip basket the small stone fragments were removed. The ureter was examined in i ts entirety up to the level renal pelvis. No stent was placed The bladder was emptied. The patient tolerated the procedure well and was extubated in the operating room, and transferred in stable condition to the recovery area. Pathology: stones Drains: no drain
[2022-05-17] MEDS: Phenazopyridine HCL 100 MG TABLET PO (13:59)
[2022-05-17] MEDS: traMADoL HCL 50 MG TABLET PO (13:59)
[2022-05-17] MEDS: Acetaminophen 325 MG TABLET 975 MG PO (14:00)
[2022-05-17] MEDS: ondansetron HCL 4 MG/2 ML VIAL IVPUSH (15:41)
[2022-05-21 15:52] LABS: Stone Source URETERAL STONE
== END 2022-05-17 16:30 | disposition home or self-care (01) ==
PROVIDERS: PCP Urology; Visit Provider Urology
PROC: (CPT 52320; principal; 2022-05-17 13:30)
DX: N20.1 Calculus of ureter (principal)
CPT/HCPCS: 52320; 82365; 87635; 88300; C1758; C1769; J1956; J2405; Q9967

== ENCOUNTER 2022-06-06 14:55 | Emergency (ER) | payer OTHER, SELFPAY ==
--- NOTE | ~2022-06-06 | XR_ITS ---
EXAMINATION: XR ANKLE, LEFT CLINICAL INFORMATION: Pain, history of gout COMPARISON: None TECHNIQUE: Two views of the left ankle. FINDINGS: No acute fracture. There is diffuse osteopenia. There is an old fracture of the distal fifth metatarsal. There is soft tissue swelling. Joint spaces are maintained. XR/XR ankle LT min 3V IMPRESSION: 1. Soft tissue swelling. 2. No acute fracture.
--- NOTE | ~2022-06-06 | XR_ITS ---
EXAMINATION: XR FOOT, LEFT CLINICAL INFORMATION: Pain, history of gout COMPARISON: None TECHNIQUE: AP, lateral, and oblique views of the left foot. FINDINGS: Diffuse osteopenia. No acute fractures. Erosions of the distal fifth metatarsal with overlying soft tissue swelling. Joint spaces are maintained. XR/XR foot LT min 3V IMPRESSION: Erosions of the distal fifth metatarsal may be due to patient's known history of gout.
[2022-06-06 15:31] VITALS: BP 155/64; PULSE 84; RESP 18; TEMP 36.7; O2SAT 96; BMI 24.6
--- NOTE | 2022-06-06 15:44 | ED.EXTPRO ---
HPI - Extremity Problem General Chief complaint: Extremity Injury, Lower <SALVADOR Ko - Last Filed: 06/06/22 15:45> Stated complaint: L foot pain no inj <SALVADOR Ko - Last Filed: 06/06/22 15:45> Time Seen by Provider: 06/06/22 18:40 <SALVADOR Ko - Last Filed: 06/06/22 15:45> Source: patient <Varun Castro MD - Last Filed: 06/06/22 19:20> Mode of arrival: ambulatory <Varun Castro MD - Last Filed: 06/06/22 19:20> Limitations: no limitations <Varun Castro MD - Last Filed: 06/06/22 19:20> History of Present Illness HPI Narrative: 82-year-old female with long standing history of gout presented with left big toe and left ankle pain, patient declined any trauma or falling down or injury to the left foot. Pain is similar to her previous episode of gout. <Varun Castro MD - Last Filed: 06/06/22 19:20> Related Data Home medications: Home Medications Medication Instructions Recorded Confirmed amlodipine 5 mg tablet 5 mg PO DAILY 04/15/21 05/17/22 aspirin 81 mg tablet,delayed 81 mg PO DAILY 04/15/21 05/17/22 release allopurinol 100 mg tablet 0.5 tab PO DAILY 10/06/21 05/17/22 Previous Rx's Medication Instructions Recorded transport wheelchair #1 ea 06/10/21 atorvastatin 40 mg tablet 40 mg PO DAILY #90 tabs 07/03/21 rollator #1 ea 07/09/21 electric scooter #1 ea 12/10/21 phenazopyridine 100 mg tablet 100 mg PO TID PRN Spasm 4 days #12 05/17/22 (Pyridium) tabs prednisone 20 mg tablet 20 mg PO BID #10 tabs 06/06/22 <SALVADOR Ko - Last Filed: 06/06/22 15:45> Allergies/Adverse reactions: Allergies Allergy/AdvReac Type Severity Reaction Status Date / Time prochlorperazine Allergy Severe paralyzed Verified 05/17/22 12:10 [From Compazine] <SALVADOR Ko - Last Filed: 06/06/22 15:45> Review of Systems Review of Systems: All other systems are reviewed and are negative Constitutional: Reports as per HPI and Reports no additional constitutional complaints Eyes: Reports as per HPI and Reports no additional eye complaints Reports system reviewed and no additional complaints, except as documented Cardiovascular: Reports as per HPI and Reports no additional cardiovascular complaints Respiratory: Reports as per HPI and Reports no additional respiratory complaints Gastrointestinal: Reports as per HPI and Reports no additional gastrointestinal complaints Genitourinary: Reports no additional female genitourinary complaints Musculoskeletal: Reports no additional musculoskeletal complaints Skin/Breast: Reports system reviewed and no additional complaints, except as docu Psychiatric: Reports no additional psychiatric complaints Endocrine: Reports no additional endocrine complaints Hematologic/Lymphatic: Reports no additional hematologic/lymphatic complaints Allergic/Immunologic: Reports no additional allergic/immunologic complaints Reports system reviewed and no additional complaints, except as documented and Reports Abnormal speech present <Varun Castro MD - Last Filed: 06/06/22 19:20> [facility] Past Medical History Medical History: Medical History Annual physical exam Anxiety Arthritis CAD (coronary artery disease) Callus of foot Carotid arterial disease CKD (chronic kidney disease) stage 3, GFR 30-59 ml/min [place] of foot CVA (cerebral vascular accident) Elevated WBC count History of kidney stones HTN (hypertension) Hyperlipidemia Normal breast exam Pacemaker Renal calculi Rotator cuff arthropathy of right shoulder Shoulder pain, left Skin cancer Ureteral tumor UTI (urinary tract infection) <SALVADOR Ko - Last Filed: 06/06/22 15:45> Surgical History: Surgical History H/O: hysterectomy History of bladder surgery History of Nat fundoplication History of permanent cardiac pacemaker placement Hx of cystoscopy Hx of oral surgery Hx of tonsillectomy <SALVADOR Ko - Last Filed: 06/06/22 15:45> Family History Family History: Family History Father No problems noted. Mother Breast cancer Maternal Aunt Breast cancer Sister Breast cancer Uterine cancer <SALVADOR Ko - Last Filed: 06/06/22 15:45> Social History Social History: Social History Household Members: Spouse Household Members Other:: , daughter in [place] Housing: House Are you a primary health care administrator to a significant other at home: No Do you presently have visiting nurse or other home services: No Alcohol intake: never Patient Tobacco Use Status: Never used Tobacco e-Cigarette/Vaping Use: Never Used Advance Directives: Yes Advance Directives on File: Yes Advance Directives Date on File: 05/03/22 service: No Current occupational status: retired Cognitive needs: No Hearing needs: No Vision needs: Yes <SALVADOR Ko - Last Filed: 06/06/22 15:45> Physical Exam Vital Signs: Vital Signs: Last Vital Signs Temp 98.0 F 06/06/22 15:31 Pulse 84 06/06/22 15:31 Resp 18 06/06/22 15:31 BP 155/64 H 06/06/22 15:31 Pulse Ox 96 06/06/22 15:31 O2 Del Method 06/06/22 15:31 BMI result Body Mass Index 24.6 <SALVADOR Ko - Last Filed: 06/06/22 15:45> Vital Signs: Last Vital Signs Temp 98.0 F 06/06/22 15:31 Pulse 84 06/06/22 15:31 Resp 18 06/06/22 15:31 BP 155/64 H 06/06/22 15:31 Pulse Ox 96 06/06/22 15:31 O2 Del Method 06/06/22 15:31 BMI result Body Mass Index 24.6 Vital signs have been reviewed as appeared to be correct. Blood pressure normal. Heart rate normal. Respiration rate normal. Temperature normal. Oxygen saturation normal. <Varun Castro MD - Last Filed: 06/06/22 19:20> Appearance: Alert. Oriented X3. No acute distress. Head: Normal external exam. Normocephalic. Atraumatic. No [place] signs noted. No raccoon eyes noted Eyes: PERRLA. EOMI. Conjunctiva and sclera normal. Eyelids normal. ENT: TM's Normal. Pharynx normal. Uvula midline. Moist mucous membranes. No trismus noted. No drooling noted. No muffled voice noted. Neck: Normal inspection. Neck supple. FROM. No adenopathy. Thyroid Normal. No meningeal signs. No neck mass noted. CVS: Normal heart rate and rhythm. Heart sound normal. No murmurs noted. Pulses normal throughout. Respiratory: No respiratory distress. Painless inspiration. Breath sounds normal. No wheezes/rales/rhonchi noted. Chest nontender. No accessory muscle usage noted or decreased air movement noted. Abdomen: Soft and nontender. Bowel sounds normal in all 4 quadrants. No distention noted. No organomegaly noted. No visible injury noted. Back: No CVA tenderness. Full range of motion noted. Skin: Skin warm and dry. Normal skin color. Normal skin turgor. No rashes/lesions/lacerations noted. Extremities: Left foot exam: Tenderness over lateral malleolus of the left ankle, no swelling or redness. Neuro: Oriented X 3. Cranial nerve exam: II-XII are grossly intact No motor deficit. No sensory deficit. Reflexes normal. <Varun Castro MD - Last Filed: 06/06/22 19:20> Course Course Course Narrative: RME - 82 yo female presenting with left foot ankle and foot pain, swelling for the couple of days. No trauma or redness. Hx gout, feels similar to prior episodes but area is not red. XRs ordered given swelling and inability to bear weight. <SALVADOR Ko - Last Filed: 06/06/22 15:45> Reevaluation(s) Reevaluation #1: 82-year-old female with history of gout presented with left foot gout usually patient respond to prednisone we will prescribe prednisone for 5 days and follow-up with PCP. <Varun Castro MD - Last Filed: 06/06/22 19:20> Time: 19:15 <Varun Castro MD - Last Filed: 06/06/22 19:20> Medical Decision Making Differential Diagnosis Differential Diagnoses: The differential diagnosis associated with the presentation includes (Left foot gout attack, left foot fracture, left foot infection.) <Varun Castro MD - Last Filed: 06/06/22 19:20> Independent Interpretation I performed an independent interpretation of an: Plain X-Ray (Left foot: No acute fracture) <Varun Castro MD - Last Filed: 06/06/22 19:20> Radiology Impression Discussion of test interpretation with radiology: I have reviewed the radiologist's reading. <Varun Castro MD - Last Filed: 06/06/22 19:20> Discharge Plan Discharge Clinical Impression: Gout attack <SALVADOR Ko - Last Filed: 06/06/22 15:45> Patient Disposition: Home, Self-Care <SALVADOR Ko - Last Filed: 06/06/22 15:45> Instructions: Gout (ED) <SALVADOR Ko - Last Filed: 06/06/22 15:45> Prescriptions: New prednisone 20 mg tablet 20 mg PO BID Qty: 10 0RF No Action (DME) transport wheelchair See Rx Instructions .Route .MEDSUPPLY Qty: 1 0RF Rx Instructions: As directed atorvastatin 40 mg tablet 40 mg PO DAILY Qty: 90 3RF (DME) rollator See Rx Instructions .Route .MEDSUPPLY Qty: 1 0RF Rx Instructions: Rollator with left arm platform support (DME) electric scooter See Rx Instructions .Route .MEDSUPPLY Qty: 1 0RF Rx Instructions: [facility] allopurinol 100 mg tablet 0.5 tab PO DAILY phenazopyridine [Pyridium] 100 mg tablet 100 mg PO TID PRN (Reason: Spasm) 4 Days Qty: 12 0RF aspirin 81 mg tablet,delayed release (DR/EC) 81 mg PO DAILY amlodipine 5 mg tablet 5 mg PO DAILY <SALVADOR Ko - Last Filed: 06/06/22 15:45> Referrals: Mary Kay Mallory MD [Primary Care Provider] - <SALVADOR Ko - Last Filed: 06/06/22 15:45>
[2022-06-06] MEDS: predniSONE 20 MG TABLET 60 MG PO (19:19)
[2022-06-06] MEDS: oxyCODONE HCl Immed Release 5 MG TABLET PO (19:20)
== END 2022-06-06 19:26 | disposition home or self-care (01) ==
PROVIDERS: Emergency Provider Emergency Medicine; PCP Internal Medicine
DX: M10.072 Idiopathic gout, left ankle and foot (principal); M25.572 Pain in left ankle and joints of left foot; Z79.899 Other long term (current) drug therapy
CPT/HCPCS: 73610; 73630; 99283

== ENCOUNTER 2022-06-11 12:56 | Outpatient (REF) | payer OTHER, SELFPAY ==
--- NOTE | ~2022-06-11 | US_ITS ---
EXAMINATION: US RETROPERITONEAL LIMITED (RENAL ONLY) CLINICAL INFORMATION: Calculus of kidney. COMPARISON: CT abdomen and pelvis 04/27/2022. Renal ultrasound 03/02/2022. TECHNIQUE: Real-time imaging of the kidneys. FINDINGS: RIGHT KIDNEY: 8.9 x 4.6 x 4.5 cm (SAG x AP x TRV). Kidney is slightly small with increased echogenicity and cortical thinning suggestive of medical renal disease. No focal parenchymal lesions . Multiple echogenic foci are seen in the right kidney the largest measuring 10 mm consistent with calculi. The hydronephrosis seen at the time of the 04/27/2022 CT scan is no longer present. LEFT KIDNEY: 7.9 x 4.0 x 3.2 cm (SAG x AP x TRV). Kidney is small and atrophic-appearing with increased echogenicity and cortical thinning suggestive of medical renal disease. No focal parenchymal lesions or hydronephrosis. An upper pole 1.2 cm echogenic focus consistent with a stone is seen. More calculi were seen on prior CT exam than are appreciated on this exam. ADDITIONAL FINDINGS: There is a 1.6 cm hyperechoic lesion in the spleen consistent with a hemangioma which was isoattenuating at the time of the prior CT. US/US renal BI IMPRESSION: 1. Small echogenic kidneys with cortical thinning consistent with medical renal disease. 2. Bilateral nonobstructing renal calculi. 3. Right-sided hydronephrosis has resolved. 4. Incidental note made of splenic hemangioma.
== END 2022-06-11 12:57 | disposition home or self-care (01) ==
LOC: HO.US 12:56
PROVIDERS: Visit Provider Nurse Practitioner Family
DX: N20.0 Calculus of kidney (principal)
CPT/HCPCS: 76775

== ENCOUNTER → 2022-06-23 13:06 | Outpatient (BNVA) | payer OTHER, MEDICAID, SELFPAY | PROVIDERS: PCP Internal Medicine; Visit Provider Urology | DX: N20.0 Calculus of kidney (principal) | CPT/HCPCS: 99212 ==

== ENCOUNTER 2022-12-08 05:02 | Emergency (ER) | payer OTHER, SELFPAY ==
--- NOTE | ~2022-12-08 | XR_ITS ---
EXAMINATION: XR FOOT, RIGHT CLINICAL INFORMATION: Great toe injury COMPARISON: None available. TECHNIQUE: AP, lateral, and oblique views of the right foot. FINDINGS: Osseous alignment is anatomic. No acute fracture is seen. There is severe degenerative change at the first metatarsophalangeal joint with joint space narrowing and hypertrophic spurring. Mild diffuse osteopenia noted. XR/XR foot RT min 3V IMPRESSION: No acute findings identified. Severe degenerative change at the first metatarsophalangeal joint.
[2022-12-08 05:05] VITALS: BP 138/48; PULSE 97; RESP 16; TEMP 36.5; O2SAT 97; BMI 26.3
--- NOTE | 2022-12-08 06:02 | ED.EXTPRO ---
HPI - Extremity Problem General Chief complaint: Extremity Injury, Lower Stated complaint: R foot inj Time Seen by Provider: 12/08/22 06:02 Source: patient Mode of arrival: ambulatory Limitations: no limitations History of Present Illness HPI Narrative: Patient is a frequent gout attacks history of CVA CKD on allopurinol just finished prednisone last week for right 2nd toe gouty arthritis comes here as she stubbed her right greater toe to the car that was in the garage yesterday since then pain has increased pain is present even when she is not moving her foot no other injury Related Data Home Medications Medication Instructions Recorded Confirmed amlodipine 5 mg tablet 5 mg PO DAILY 04/15/21 06/23/22 aspirin 81 mg tablet,delayed 81 mg PO DAILY 04/15/21 06/23/22 release Previous Rx's Medication Instructions Recorded transport wheelchair #1 ea 06/10/21 atorvastatin 40 mg tablet 40 mg PO DAILY #90 tabs 07/03/21 rollator #1 ea 07/09/21 electric scooter #1 ea 12/10/21 erythromycin 5 mg/gram (0.5 %) eye 0.5 inch ophthalmic (eye) BID 7 06/18/22 ointment days #3.5 grams erythromycin 5 mg/gram (0.5 %) eye 0.5 inch ophthalmic (eye) BID 7 06/18/22 ointment days #3.5 grams azelastine 0.05 % eye drops 1 drp ophthalmic (eye) BID #6 mL 07/10/22 Transfer Bench #1 ea 07/13/22 prednisone 20 mg tablet 20 mg PO BID #10 tabs 09/09/22 allopurinol 100 mg tablet 50 mg PO DAILY #30 tabs 10/20/22 ferrous sulfate 325 mg (65 mg 325 mg PO DAILY #90 tabs 11/02/22 iron) tablet prednisone 20 mg tablet 20 mg PO DAILY #5 tabs 11/19/22 oxycodone 5 mg tablet 5 mg PO Q6H PRN pain #20 tabs 12/08/22 prednisone 20 mg tablet 40 mg PO DAILY #10 tabs 12/08/22 Allergies Allergy/AdvReac Type Severity Reaction Status Date / Time prochlorperazine Allergy Severe paralyzed Verified 07/10/22 13:15 [From Compazine] Review of Systems Review of Systems: Yes all other systems are reviewed and are negative PMFSH Past Medical History Medical History Annual physical exam Anxiety Arthritis CAD (coronary artery disease) Callus of foot Carotid arterial disease CKD (chronic kidney disease) stage 3, GFR 30-59 ml/min [place] of foot CVA (cerebral vascular accident) Elevated WBC count Gout History of kidney stones HTN (hypertension) Hyperlipidemia Normal breast exam Pacemaker Renal calculi Rotator cuff arthropathy of right shoulder Shoulder pain, left Skin cancer Ureteral tumor UTI (urinary tract infection) Surgical History H/O: hysterectomy History of bladder surgery History of Nat fundoplication History of permanent cardiac pacemaker placement Hx of cystoscopy Hx of oral surgery Hx of tonsillectomy Family History Family History Father No problems noted. Mother Breast cancer Maternal Aunt Breast cancer Sister Breast cancer Uterine cancer Social History Social History Household Members: Spouse Household Members Other:: , daughter in [place] Housing: House Are you a primary small animal caretaker to a significant other at home: No Do you presently have visiting nurse or other home services: No Alcohol intake: never Patient Tobacco Use Status: Never used Tobacco e-Cigarette/Vaping Use: Never Used Second Hand Smoke Exposure: No Advance Directives: Yes Advance Directives on File: Yes Advance Directives Date on File: 05/03/22 service: No Current occupational status: retired Cognitive needs: No Hearing needs: No Vision needs: Yes Physical Exam Vital Signs: Vital Signs: Last Vital Signs Temp 97.7 F 12/08/22 05:05 Pulse 97 12/08/22 05:05 Resp 16 12/08/22 05:05 BP 138/48 L 12/08/22 05:05 Pulse Ox 97 12/08/22 05:05 O2 Del Method Room Air 12/08/22 05:05 BMI result Body Mass Index 26.3 Appearance: Alert. Oriented X3. No acute distress. Eyes: PERRLA, No Nystagmus ENT: Pharynx normal. Oral Mucosa moist Neck: Normal inspection. Neck supple. CVS: Normal heart rate and rhythm. Pulses normal. Respiratory: No respiratory distress. Equal air entry bilateral, no wheezing/rales/rhonchi Abdomen: Soft and nontender. Bowel sounds are present, no mass palpable, no CVA tenderness Skin: Skin warm and dry. Normal skin color. Normal skin turgor. Extremities: No lower extremity edema. No calf tenderness tenderness right greater toe with slight swelling no deformity neurovascular intact Neuro: Oriented X 3. 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 Patient sent to Dr. Romero pending patient improvement in the pain and disposition Differential Diagnosis Differential Diagnoses: The differential diagnosis associated with the presentation includes Greater toe fracture/gout Radiology Impression Discussion of test interpretation with radiology: I have reviewed the radiologist's reading. Radiologist Impression: [place] [id number] XRay Report Signed Patient: Bharti Oliveros MR#: [id number] : 1940 Acct:[id number] Age/Sex: 82 / F ADM Date: 12/08/22 Loc: HO.ED Attending Dr: Ordering Physician: Otis Lamb MD Date of Service: 12/08/22 Procedure(s): XR foot RT min 3V Accession Number(s): [id number] cc: Otis Lamb MD~ EXAMINATION: XR FOOT, RIGHT CLINICAL INFORMATION: Great toe injury? COMPARISON: None available.? TECHNIQUE: AP, lateral, and oblique views of the right foot. FINDINGS: Osseous alignment is anatomic. No acute fracture is seen. There is severe degenerative change at the first metatarsophalangeal joint with joint space narrowing and hypertrophic spurring. Mild diffuse osteopenia noted.? XR/XR foot RT min 3V IMPRESSION: No acute findings identified. Severe degenerative change at the first metatarsophalangeal joint. Discharge Plan Discharge Clinical Impression: Gouty arthritis of right great toe Patient Disposition: Still a Patient Instructions: Gout (ED) Additional Instructions: Take prednisone as prescribed Tylenol or Oxycodone for severe pain Follow-up with your PCP if not better Prescriptions: New prednisone 20 mg tablet 40 mg PO DAILY Qty: 10 0RF oxycodone 5 mg tablet 5 mg PO Q6H PRN (Reason: pain) Qty: 20 0RF Rx Instructions: Partial Fill upon patient request. No Action (DME) transport wheelchair See Rx Instructions .Route .MEDSUPPLY Qty: 1 0RF Rx Instructions: As directed atorvastatin 40 mg tablet 40 mg PO DAILY Qty: 90 3RF (DME) rollator See Rx Instructions .Route .MEDSUPPLY Qty: 1 0RF Rx Instructions: Rollator with left arm platform support (DME) electric scooter See Rx Instructions .Route .MEDSUPPLY Qty: 1 0RF Rx Instructions: [facility] (DME) Transfer Bench [facility] See Rx Instructions .Route Qty: 1 0RF Rx Instructions: Transfer tub bench prednisone 20 mg tablet 20 mg PO BID Qty: 10 0RF allopurinol 100 mg tablet 50 mg PO DAILY Qty: 30 1RF ferrous sulfate 325 mg (65 mg iron) Tablet 325 mg PO DAILY Qty: 90 3RF prednisone 20 mg tablet 20 mg PO DAILY Qty: 5 0RF Rx Instructions: take in am with breakfast for 5 days aspirin 81 mg tablet,delayed release (DR/EC) 81 mg PO DAILY amlodipine 5 mg tablet 5 mg PO DAILY erythromycin 5 mg/gram (0.5 %) ointment 0.5 inch ophthalmic (eye) BID 7 Days Qty: 3.5 0RF erythromycin 5 mg/gram (0.5 %) ointment 0.5 inch ophthalmic (eye) BID 7 Days Qty: 3.5 0RF azelastine 0.05 % drops 1 drp ophthalmic (eye) BID Qty: 6 0RF
[2022-12-08] MEDS: oxyCODONE HCl Immed Release 5 MG TABLET PO (06:35)
--- NOTE | 2022-12-08 06:37 | PC.NURSE ---
pt moved to the main ed. pt medicated for right foot pain. pt is back from xray.
[2022-12-08] MEDS: predniSONE 20 MG TABLET 40 MG PO (07:24)
== END 2022-12-08 08:19 | disposition home or self-care (01) ==
PROVIDERS: Emergency Provider Internal Medicine; PCP Internal Medicine
DX: M10.071 Idiopathic gout, right ankle and foot (principal); Z79.899 Other long term (current) drug therapy
CPT/HCPCS: 73630; 99283

== ENCOUNTER 2022-12-23 10:16 | Outpatient (REF) | payer OTHER, SELFPAY ==
--- NOTE | ~2022-12-23 | US_ITS ---
EXAMINATION: US RETROPERITONEAL LIMITED (RENAL ONLY) CLINICAL INFORMATION: Calculus of kidney. COMPARISON: Ultrasound retroperitoneal limited (renal only) 06/11/2022. CT abdomen and pelvis without contrast 04/27/2022. Ultrasound retroperitoneal limited (renal only) 03/02/2022. TECHNIQUE: Real-time imaging of the kidneys. FINDINGS: RIGHT KIDNEY: 10.1 x 5.2 x 5.4 cm (SAG x AP x TRV). The kidney is normal in size and contour. Renal cortical thickness is normal. There is increased renal cortical echotexture. No hydronephrosis. At the upper pole, a 1.2 cm shadowing, nonobstructing calculus is seen. At the interpolar aspect, a 7 mm nonobstructing calculus is seen, with twinkle artifact. At the lower pole, a 3 mm nonobstructing calculus is seen, with twinkle artifact. At the upper pole, an 8 mm benign, simple cyst is seen, which requires no imaging follow-up LEFT KIDNEY: 8.9 x 3.4 x 3.1 cm (SAG x AP x TRV). The kidney is normal in size and contour. Renal cortical thickness is normal. There is increased renal cortical echotexture. No focal parenchymal lesions or hydronephrosis. At the upper pole, a 1.5 cm nonobstructing calculus is seen, with twinkle artifact. At the lower pole, a 3 mm nonobstructing calculus is seen, with twinkle artifact. ADDITIONAL FINDINGS: There is splenomegaly, with a longitudinal span of 16.7 cm. US/US renal BI IMPRESSION: 1. Nonobstructing bilateral renal calculi are seen, as detailed. No hydronephrosis is seen. 2. There is increased bilateral renal cortical echotexture, which can be associated with medical renal disease. 3. There is splenomegaly.
== END 2022-12-23 10:17 | disposition home or self-care (01) ==
LOC: HO.US 10:16
PROVIDERS: PCP Internal Medicine; Visit Provider Urology
DX: N20.0 Calculus of kidney (principal)
CPT/HCPCS: 76775

== ENCOUNTER 2022-12-27 13:57 | Outpatient (AMB) | payer OTHER, SELFPAY ==
[2022-12-27 14:14] VITALS: BP 140/80; PULSE 80; TEMP 36.6; O2SAT 98; BMI 24.8
--- NOTE | 2022-12-27 14:14 | AM.OFFWIN_ITS ---
Intake Vital Signs 12/27/22 14:14 Height 4 ft 11 in Weight 123 lb BMI 24.8 BP 140/80 H Blood Pressure Location Lt brachial Position Sitting Pulse 80 Pulse Source Pulse Oximeter Temp 98 F Temp Source Temporal Artery Scan Pulse Oximetry (%) 98 Oxygen Delivery Method Room Air Intake Visit Reasons: EP RT FT injury Intake Note: pt is here for RT FT injury Patient Tobacco Use Status: Never used Tobacco Allergies prochlorperazine [From Compazine] Allergy (Severe, Verified 12/27/22 14:15) paralyzed Do you need a note to return to daycare/school/sports/work: No HPI EP RT FT injury HPI Details Patient presents today with right foot pain. She has had several flares of gout in this foot over the last few months, all requiring prednisone treatment. She had an incident 12/08 in which her electric wheelchair briefly pinned her foot against a vehicle. She was seen in the [facility] [place] [facility] in which imaging of the foot revealed severe degenerative change at the first metatarsophalangeal joint. No fracture. She had a gout flare at that time and was started on a course of prednisone. She reports this mostly resolved, however over the last few days her right great and second toes have become very painful and red again. She is in pain even at rest. Denies any fever. [facility] Medical History Annual physical exam Anxiety Arthritis CAD (coronary artery disease) Callus of foot Carotid arterial disease CKD (chronic kidney disease) stage 3, GFR 30-59 ml/min [place] of foot CVA (cerebral vascular accident) Elevated WBC count Gout History of kidney stones HTN (hypertension) Hyperlipidemia Normal breast exam Pacemaker Renal calculi Rotator cuff arthropathy of right shoulder Shoulder pain, left Skin cancer Ureteral tumor UTI (urinary tract infection) Surgical History H/O: hysterectomy History of bladder surgery History of Nat fundoplication History of permanent cardiac pacemaker placement Hx of cystoscopy Hx of oral surgery Hx of tonsillectomy Family History Father No problems noted. Mother Breast cancer Maternal Aunt Breast cancer Sister Breast cancer Uterine cancer Social History Household Members: Spouse Household Members Other:: , daughter in [place] Housing: House Are you a primary acute care registered nurse to a significant other at home: No Do you presently have visiting nurse or other home services: No Alcohol intake: never Patient Tobacco Use Status: Never used Tobacco e-Cigarette/Vaping Use: Never Used Second Hand Smoke Exposure: No Advance Directives Date on File: 05/03/22 service: No Current occupational status: retired Cognitive needs: No Hearing needs: No Vision needs: Yes Review of Systems Const All systems reviewed & are unremarkable except as noted in HPI and below Physical Exam Vital Signs: Last Vital Signs Temp 98 F 12/27/22 14:14 Pulse 80 12/27/22 14:14 BP 140/80 H 12/27/22 14:14 Pulse Ox 98 12/27/22 14:14 Oxygen Delivery Method Room Air 12/27/22 14:14 BMI result Body Mass Index 24.8 Const General: cooperative and in distress (foot pain) moderate Resp Effort & Inspection: normal respiratory effort and able to speak in complete sentences Auscultation: clear to auscultation bilaterally Cardio Jugular venous distension: no JVD Palpation: normal PMI Rate: regular rate Rhythm: regular rhythm Extrem Right lower extremity: foot (extreme tenderness, mod erythema/warmth of right great and 2nd toe) Details: vascular exam Details: dorsalis pedis pulse present, posterior tibial pulse present and normal capillary refill Psych Appearance: grossly normal Mental Status: mental status grossly normal Speech and movement: Normal speech and movement present Assessment & Plan Assessment & Plan (1) Gout: Code(s): M10.9 - Gout, unspecified Qualifiers: Chronicity: acute Encounter type: subsequent encounter Gout site: toe Laterality: right Plan: Patient started on prednisone x7 days. She is on allopurinol 50 daily, and I sent a message to her PCP inquiring about possible increase in this dose to reach a more therapeutic level, as she has had multiple recurrences of gout over the last several months. Also started patient on a short course of tramadol for pain. We reviewed indications, use, risks, possible side effects of medications. Patient verbalizes understanding and agrees to plan. She has rheumatology appt. in February however she should see PCP within the next week or so for follow up. Medications: New prednisone 20 mg PO BID 7 days 14 tabs 0RF tramadol 50 mg PO BID 5 days PRN 10 tabs 0RF pain M10.9 - Gout, unspecified Coding Level of Care Code Est Pt Level 3 (44675) Diagnoses Gout M10.9 Chronicity: acute Encounter type: subsequent encounter Gout site: toe Laterality: right
== END 2022-12-27 14:48 | disposition home or self-care (01) ==
PROVIDERS: PCP Internal Medicine; Visit Provider Nurse Practitioner Family
DX: M10.9 Gout, unspecified (principal)
CPT/HCPCS: 99213

== ENCOUNTER 2022-12-31 08:27 | Outpatient (AMB) | payer OTHER, SELFPAY ==
--- NOTE | 2022-12-31 08:36 | A.OFFVIS_ITS ---
Intake Intake Visit Reasons: 6m/US(set) Intake Note: Patient is present for US Follow Up.? (Microscopic Hematuria, Nephrolithiasis) Urology Med: None Antibiotic Allergy: None Blood Thinner: Aspirin? Wallcovering Hanger Required: No Accompanied by: Self / Same As Patient Allergies prochlorperazine [From Compazine] Allergy (Severe, Verified 12/31/22 08:45) paralyzed HPI HPI Comments History of Present Illness Details Mary Kay is a pleasant female. She is a patient Dr. Mallory. She is seen for the following urologic conditions - nephrolithiasis Uric acid stone 6 month follow-up On allopurinol Has thrombocytopenia Ultrasound 1.2 cm stone right side Suggest trial potassium citrate Prescription provided Nephrolithiasis 05/10 impacted distal right ureteric ston e Underwent ureteroscopy with laser lithotripsy Initial presentation with urosepsis Stone composition - 05/10 uric acid Imaging - 01/08 renal ultrasound 1.2 cm right-dutch ed stone PFSH Medical History Gout UTI (urinary tract infection) History of kidney stones Ureteral tumor Renal calculi Shoulder pain, left Callus of foot CKD (chronic kidney disease) stage 3, GFR 30-59 ml/min Hyperlipidemia HTN (hypertension) Anxiety [place] of foot Annual physical exam Skin cancer Normal breast exam Elevated WBC count Arthritis Pacemaker Carotid arterial disease Rotator cuff arthropathy of right shoulder CAD (coronary artery disease) CVA (cerebral vascular accident) Surgical History History of bladder surgery Hx of oral surgery Hx of cystoscopy Hx of tonsillectomy History of permanent cardiac pacemaker placement History of Nat fundoplication H/O: hysterectomy Family History Father No problems noted. Mother Breast cancer Maternal Aunt Breast cancer Sister Breast cancer Uterine cancer Social History Household Members: Spouse Household Members Other:: , daughter in [place] Housing: House Are you a primary campground caretaker to a significant other at home: No Do you presently have visiting nurse or other home services: No Alcohol intake: never Patient Tobacco Use Status: Never used Tobacco e-Cigarette/Vaping Use: Never Used Second Hand Smoke Exposure: No Advance Directives Date on File: 05/03/22 service: No Current occupational status: retired Cognitive needs: No Hearing needs: No Vision needs: Yes Review of Systems Const Denies chills and Denies fever(s) Card Reports no additional complaints and Denies syncope Resp Denies cough GI Denies abdominal pain and Denies heartburn Reports as per HPI and Denies change in libido Neuro Denies syncope Psych Denies change in libido Endo Denies change in libido Physical Exam Const General: cooperative, healthy appearing, comfortable and no acute distress Orientation/consciousness: patient oriented x3 HEENT Face and sinus: Yes normal facial exam Mouth: moist mucous membranes Neck Neck: Yes normal visual inspection, Yes full ROM and Yes trachea midline Chest Chest palpation & inspection: normal inspection of the chest Resp Effort & Inspection: normal respiratory effort, able to speak in complete sentences and no respiratory distress GI Inspection: Yes normal to inspection Back/Spine/Pelvis Cervical Spine: normal cervical lordosis Thoracic/Lumbar Spine: thoracic and lumbar spine normal to inspection Skin General skin exam: no rashes or lesions noted Neuro General: patient oriented x3, gait normal, tone normal and moves all extremities Extrem General: Yes normal to inspection and Yes capillary refill normal Assessment & Plan Assessment & Plan (1) Uric acid kidney stone: Code(s): N20.0 - Calculus of kidney Plan Trial potassium citrate Six month follow-up imaging Tele Orders: Orders US renal BI 6 Months N20.0 - Calculus of kidney Medications: New potassium citrate ER 20 mEq (2 x 10 mEq (1,080 mg)) PO BID 360 tabs 1RF 90 days N20.0 - Calculus of kidney Patient Instructions: Imaging studies, laboratory and physical exam results were discussed and reviewed in detail. No major barriers to patient understanding were identified. An opportunity to ask questions regarding the treatment plan was provided. All questions were answered. The patient expressed understanding and agreement with the above treatment plan. The patient is aware they should contact our office by phone for worsening of their current condition or the appearance of new urologic symptoms. Compliance is encouraged with any medications and followup testing that is ordered. It is a privilege to participate in the urologic care of your patient. If you have any questions or concerns regarding treatment for the above conditions, or other urologic issues, please do not hesitate to contact me. The office telephone contact is [phone]. This note is constructed using voice recognition software. While every effort has been made to ensure accuracy electronic controls repairer supervisor errors may have been included. Yours sincerely, Dr Humble Orlando MD, [facility] - Urology Providers of Expert, Compassionate Care for the Genitourinary System Coding Level of Care Code Est Pt Level 4 (83078) Diagnoses Uric acid kidney stone N20.0
== END 2022-12-31 09:14 | disposition home or self-care (01) ==
LOC: HO.HUSH 08:27
PROVIDERS: PCP Internal Medicine; Visit Provider Urology
DX: N20.0 Calculus of kidney (principal)
CPT/HCPCS: 99213

== ENCOUNTER → 2022-12-31 08:27 | Outpatient (BNVA) | payer OTHER, SELFPAY | PROVIDERS: PCP Internal Medicine; Visit Provider Urology | DX: N20.0 Calculus of kidney (principal) | CPT/HCPCS: 99212 ==

== ENCOUNTER 2023-01-26 10:13 | Outpatient (AMB) | payer OTHER, SELFPAY ==
[2023-01-26 10:41] VITALS: BP 116/64; PULSE 112; TEMP 36.3
--- NOTE | 2023-01-26 10:41 | MHC.OFFVIS ---
Intake Vital Signs 01/26/23 10:41 Height 4 ft 11 in BMI Reason not done Patient refused/unable BP 116/64 Blood Pressure Location Rt brachial Position Sitting Pulse 112 H Pulse Source Palpation Temp 97.3 F Temp Source Skin Comment pt in wheelchair states weight is 130 lbs. Intake Visit Reasons: Gout Intake Note: New pt presents today for consult. Saw [facility]. Following with Dr Jansen. C/o dry mouth/burning sensation; c/o bl foot pain. States she injured right foot 3 weeks ago when she had a fall at home. She states most of her pain is in her feet but left hip occasionally painful. Injection Molding Supervisor Required: No Accompanied by: Self / Same As Patient Allergies prochlorperazine [From Compazine] Allergy (Severe, Verified 01/26/23 10:45) paralyzed Medication List - Last Reconciled 01/26/23 by Amparo Zaragoza MD allopurinol 50 mg (1/2 x 100 mg) PO DAILY 90 days amlodipine 5 mg PO DAILY aspirin 81 mg PO DAILY atorvastatin 40 mg PO DAILY [[facility]] ferrous sulfate 325 mg PO DAILY potassium citrate ER 20 mEq PO BID pyridoxine (vitamin B6) 100 mg PO DAILY 90 days [rollator Rollator with left arm platform support] tramadol 50 mg PO BID Transfer Bench Transfer tub bench [transport wheelchair As directed] HPI HPI Comments History of Present Illness Details This is an 82-year-old female with gout, CKD, kidney stones (80% urate crystal, 20% calcium oxalate crystal) 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 Patient stated that she was diagnosed with gout 3 years ago when she would have attacks affecting her big toe, feet and ankles. She was started on allopurinol 50 mg daily. Over the last year she has been having recurrent and more severe attacks of gout that are treated with prednisone. About a month ago febuxostat was added by her PCP. She is also on allopurinol 100 mg daily by Urology. Most recent attack was about 3 weeks ago affecting her ankles and feet, she was prescribed a 7 day course of oral prednisone 20 mg daily which helped but she started to have recurrent pain and swelling of her right ankle. [facility] Medical History Gout UTI (urinary tract infection) History of kidney stones Ureteral tumor Renal calculi Shoulder pain, left Callus of foot CKD (chronic kidney disease) stage 3, GFR 30-59 ml/min Hyperlipidemia HTN (hypertension) Anxiety [place] of foot Annual physical exam Skin cancer Normal breast exam Elevated WBC count Arthritis Pacemaker Carotid arterial disease Rotator cuff arthropathy of right shoulder CAD (coronary artery disease) CVA (cerebral vascular accident) Surgical History History of bladder surgery Hx of oral surgery Hx of cystoscopy Hx of tonsillectomy History of permanent cardiac pacemaker placement History of Nat fundoplication H/O: hysterectomy Family History Father Gout Mother Breast cancer Sjogren's syndrome Maternal Aunt Breast cancer Sister Breast cancer Uterine cancer Social History Household Members: Spouse Housing: House Are you a primary child day care teacher to a significant other at home: No Do you presently have visiting nurse or other home services: Yes Alcohol intake: never Patient Tobacco Use Status: Never used Tobacco e-Cigarette/Vaping Use: Never Used Second Hand Smoke Exposure: No Advance Directives Date on File: 05/03/22 service: No Current occupational status: retired Current occupation: Medical field- senior administrative support Cognitive needs: No Hearing needs: No Vision needs: Yes Review of Systems Const Reports fatigue ENT Reports dry mouth Musc Reports arthralgias, Reports joint swelling and Reports stiffness Endo Reports fatigue Physical Exam Vital Signs: Last Vital Signs Temp 97.3 F 01/26/23 10:41 Pulse 112 H 01/26/23 10:41 BP 116/64 01/26/23 10:41 Const General: cooperative, healthy appearing and comfortable Nutritional Appearance: overweight Orientation/consciousness: patient oriented x3 Limitations: ambulation with walker HEENT Head: Yes normocephalic and Yes atraumatic Mouth: moist mucous membranes Resp Effort & Inspection: normal respiratory effort and able to speak in complete sentences Skin General skin exam: no rashes or lesions noted Neuro General: patient oriented x3 Extrem Other: Osteoarthritic changes of both hands Significantly limited range of motion of right upper extremity (history of torn rotator cuff per patient) Left upper extremity paresis with increased tone Right ankle swelling, warmth and tenderness Assessment & Plan Assessment & Plan (1) Gout: Code(s): M10.9 - Gout, unspecified Qualifiers: Gout site: multiple sites Chronicity: acute Gout etiology: due to renal impairment Qualified Code(s): M10.39 - Gout due to renal impairment, multiple sites Plan: This is an 82-year-old female with a past medical history of CKD, gout, kidney stones, CVA with resultant hemiparesis who presents as a new patient for evaluation of gout. Per patient gout started 3 years ago. Patient states that she takes allopurinol 50 mg daily and febuxostat 40 mg daily started last month. Advised patient to stop Febuxostat for now Advised patient to keep taking allopurinol even if she has a gout flare. Continue allopurinol 50 mg daily. Plan to increase next visit Start prednisone 20 mg daily for 2 weeks to treat the acute flare then stay on 10 mg daily for prophylaxis until next visit Labs before next visit in 2 months (2) FARTUN positive: Code(s): R76.8 - Other specified abnormal immunological findings in serum Plan: Per notes patient was evaluated by transportation engineer at the [facility], she had a positive FARTUN and was started on hydroxychloroquine a few years ago. Will request records Plan I spent 49 minutes reviewing patient's chart, evaluating patient, ordering diagnostic workup, counseling patient and documenting in the chart Orders: Orders Comprehensive Met. Panel 2 Months M10.9 - Gout, unspecified Uric Acid 2 Months M10.9 - Gout, unspecified Complete Blood Count Auto Diff 2 Months M10.9 - Gout, unspecified Medications: New prednisone see taper instructions 10 mg PO DAILY 90 tabs 0RF Changed From allopurinol 100 mg PO DAILY 90 days 90 tabs 1RF To allopurinol 50 mg (1/2 x 100 mg) PO DAILY 90 days 45 tabs 1RF Discontinued febuxostat Discontinued Reason: Doctor's Order 40 mg PO DAILY 30 tabs 1RF Coding Level of Care Code New Pt Level 4 (76946) Diagnoses Acute gout due to renal impairment involving multiple sites M10.39 Gout site: multiple sites Chronicity: acute Gout etiology: due to renal impairment FARTUN positive R76.8
== END 2023-01-26 11:29 | disposition home or self-care (01) ==
LOC: HO.RHE 10:13
PROVIDERS: PCP Internal Medicine; Visit Provider Student in an Organized Health Care Education/Training Program
DX: M10.39 Gout due to renal impairment, multiple sites (principal); R76.8 Other specified abnormal immunological findings in serum
CPT/HCPCS: 99204; 99214

== ENCOUNTER → 2023-01-26 10:13 | Outpatient (BNVA) | payer OTHER, SELFPAY | PROVIDERS: PCP Internal Medicine; Visit Provider Student in an Organized Health Care Education/Training Program ==

== ENCOUNTER 2023-02-03 10:05 | Outpatient (AMB) | payer OTHER, SELFPAY ==
--- NOTE | 2023-02-03 10:08 | A.OFFPC_ITS ---
Vital Signs 02/03/23 10:09 Height 4 ft 11 in Weight 123 lb BMI 24.8 BP 124/66 Blood Pressure Location Rt brachial Position Sitting Pulse 10 L Pulse Source Pulse Oximeter Pulse Oximetry (%) 97 Oxygen Delivery Method Room Air Intake Visit Reasons: FUP HTN Intake Note: Pt is here today for a follow up visit. Pt states that she has severe gout in her feet. Allergies prochlorperazine [From Compazine] Allergy (Severe, Verified 02/03/23 10:11) paralyzed Medication List - Last Reconciled 02/03/23 by Mary Kay Mallory MD allopurinol 50 mg (1/2 x 100 mg) PO DAILY 90 days amlodipine 5 mg PO DAILY aspirin 81 mg PO DAILY atorvastatin 40 mg PO DAILY [[facility]] ferrous sulfate 325 mg PO DAILY potassium citrate ER 20 mEq PO BID prednisone 10 mg PO BID pyridoxine (vitamin B6) 100 mg PO DAILY 90 days [rollator Rollator with left arm platform support] tramadol 50 mg PO BID Transfer Bench Transfer tub bench [transport wheelchair As directed] Tobacco use date assessed: 02/03/23 Fall risk assessment: 2 + Falls in past year Last assessed Fall Risk: 02/03/23 Dental Screening Dental Screen Date: 02/03/23 Did you have a dental visit in the last 12 months?: Yes Did you have a dental problem in the last 6 months where you did not have access to dental care?: No Was dental information given to patient?: Patient has dentist HPI FUP HTN HPI Details Pt presents for f/u HTN, hyperlipid, CKD 3, recurrent nephrolithiasis, chronic leukemia, recurrent gout. Patient reports bilateral feet pain better since she started taking 20 mg of prednisone. She follows up with apartment maintenance supervisor and restarted 50 mg of allopurinol. She follows up with urologist for recurrent nephrolithiasis and has been taking vit B6. Patient follows up with forms designer for chronic leukemia and will have blood test next week to monitor her counts. Patient has been taking amlodipine 5 mg every other or every 2 days because her blood pressure has been normal according to the patient. [facility] Medical History (Updated 02/03/23 @ 11:09 by Mary Kay Mallory MD) Gout UTI (urinary tract infection) History of kidney stones Ureteral tumor Renal calculi Shoulder pain, left Callus of foot CKD (chronic kidney disease) stage 3, GFR 30-59 ml/min Hyperlipidemia HTN (hypertension) Anxiety [place] of foot Annual physical exam Skin cancer Normal breast exam Elevated WBC count Arthritis Pacemaker Carotid arterial disease Rotator cuff arthropathy of right shoulder CAD (coronary artery disease) CVA (cerebral vascular accident) Surgical History History of bladder surgery Hx of oral surgery Hx of cystoscopy Hx of tonsillectomy History of permanent cardiac pacemaker placement History of Nat fundoplication H/O: hysterectomy Family History Father Gout Mother Breast cancer Sjogren's syndrome Maternal Aunt Breast cancer Sister Breast cancer Uterine cancer Social History Household Members: Spouse Housing: House Are you a primary pet care associate to a significant other at home: No Do you presently have visiting nurse or other home services: Yes Alcohol intake: never Patient Tobacco Use Status: Never used Tobacco e-Cigarette/Vaping Use: Never Used Second Hand Smoke Exposure: No Advance Directives Date on File: 05/03/22 service: No Current occupational status: retired Current occupation: Medical field- administrative executive Cognitive needs: No Hearing needs: No Vision needs: Yes Questionnaire PHQ-9 Over the last 2 weeks, how often have you been bothered by any of the following problems? 1. Little interest or pleasure in doing things: several days 2. Feeling down, depressed, or hopeless: not at all 3. Trouble falling or staying asleep, or sleeping too much: several days 4. Feeling tired or having little energy: several days 5. Poor appetite or overeating: not at all 6. Feeling bad about yourself - or that you are a failure or have let yourself or your family down: not at all 7. Trouble concentrating on things, such as reading the newspaper or watching television: several days 8. Moving or speaking so slowly that other people could have noticed. Or the opposite - being so fidgety or restless that you have been moving around a lot more than usual: not at all 9. Thoughts that you would be better off or of hurting yourself in some way: not at all Total score: 4 Depression Screening Interpretation: Negative Depression Screening Done: Yes Source: Developed by Drs. Alistair Arthur, Mary Ann Abbott, Oliver Agudelo and colleagues, with an educational nahed from [employer]. Thrive Questionnaire Date Thrive assessed: 02/03/23 I am a: Patient What is your living situation today?: I have a steady place to live Within the past 12 months, did the food you bought not last and you didn't have the money to get more?: Never true Within the past 12 months, did you worry whether your food would run out before you got money to buy more?: Never true Do you have trouble paying for medicines?: No Do you have trouble getting transportation to medical appointments?: No Do you have trouble paying your heating and electricity bill?: No Do you have trouble taking care of your child, family member or friend?: No Do you have trouble with day-to-day activities such as bathing, preparing meals, shopping, managing finances, etc.?: No Are you currently unemployed and looking for a job?: No Are you interested in more education?: No Please select the resources that you would like help with: None AUDIT C Alcohol Use Questionnaire (AUDIT-C) 1. How often do you have a drink containing alcohol?: Never 3. How often do you have six or more drinks on one occasion?: Never Total Score: 0 BELEN-7 AMB Questionnaire BELEN-7 Date BELEN - 7 assessed: 02/03/23 Source: Developed by Drs. Alistair Arthur, Mary Ann Abbott, Oliver Agudelo and colleagues, with an educational nahed from [employer]. BELEN-7 Assessment Billing BELEN-7 Assessment Tool: pt declined-do not bill Review of Systems Const All systems reviewed & are unremarkable except as noted in HPI and below Reports no additional complaints Eyes Reports no additional complaints ENT Reports no additional complaints Card Reports no additional complaints Resp Reports no additional complaints GI Reports no additional complaints Reports no additional complaints Physical exam (Primary Care) Vital Signs: Last Vital Signs Pulse 10 L 02/03/23 10:09 BP 124/66 02/03/23 10:09 Pulse Ox 97 02/03/23 10:09 Oxygen Delivery Method Room Air 02/03/23 10:09 BMI result Body Mass Index 24.8 Tobacco/Smoking Status: Tobacco use Status Tobacco use date assessed 02/03/23 02/03/23 10:15 Patient Tobacco Use Status Never used Tobacco 02/03/23 10:15 e-Cigarette/Vaping Use Never Used 02/03/23 10:15 PHQ-9: PHQ-9 Score PHQ-9: Total score 4 02/03/23 10:15 Depression Screening Interpretation: Negative Thrive Assessment: Date of Thrive Assessment Date Thrive assessed 02/03/23 02/03/23 10:15 Const General: no acute distress HENMT Head: Yes normal to inspection General nose exam: Normal external nose present Resp Effort & Inspection: normal respiratory effort Auscultation: clear to auscultation bilaterally Cardio Rhythm: regular rhythm Heart sounds: S1 normal heart sound present and S2 normal heart sound present GI Inspection: Yes normal to inspection Palpation (GI): Soft to palpation Percussion: Yes normal to percussion Assessment and Plan Assessment & Plan (1) Uric acid kidney stone: Code(s): N20.0 - Calculus of kidney Plan: Restarted on low-dose, renal adjusted, allopurinol by Rheumatology, patient will follow-up with urology (2) Gout: Code(s): M10.9 - Gout, unspecified Qualifiers: Gout site: multiple sites Gout etiology: due to renal impairment Chronicity: acute Qualified Code(s): M10.39 - Gout due to renal impairment, multiple sites Plan: Started on 20 mg of prednisone for chronic therapy by Rheumatology, will add Cimetidine for GI protection (3) CKD (chronic kidney disease) stage 3, GFR 30-59 ml/min: Comment: f/u nephrology Code(s): N18.30 - Chronic kidney disease, stage 3 unspecified Plan: Monitor renal function and avoid renotoxic medications, follow-up with nephrology. (4) HTN (hypertension): Code(s): I10 - Essential (primary) hypertension Plan: Blood pressure is low and amlodipine will be decreased to 2.5 mg a day. (5) CVA (cerebral vascular accident): Comment: L side weakness 2019 Code(s): I63.9 - Cerebral infarction, unspecified Plan: Continue statin, patient stopped 81 mg of aspirin because of easy bruising (6) Elevated WBC count: Comment: negative w/u in [place], ? chronic leukemia, monitor CBC and f/u with forms designer Code(s): D72.829 - Elevated white blood cell count, unspecified Plan: Follow-up with Hematology Orders: Orders Comprehensive Met. Panel 1 Week D69.6 - Thrombocytopenia, unspecified Medications: New amlodipine 2.5 mg PO DAILY 90 tabs 0RF cimetidine 400 mg PO BEDTIME 90 tabs 0RF Changed From prednisone see taper instructions 10 mg PO DAILY 90 tabs 0RF To prednisone see taper instructions 10 mg PO BID Discontinued ferrous sulfate Discontinued Reason: Doctor's Order 325 mg PO DAILY 90 tabs 3RF Coding Level of Care Code Est Pt Level 4 (16831) Diagnoses Uric acid kidney stone N20.0 Acute gout due to renal impairment involving multiple sites M10.39 Gout site: multiple sites Gout etiology: due to renal impairment Chronicity: acute CKD (chronic kidney disease) stage 3, GFR 30-59 ml/min N18.30 HTN (hypertension) I10 CVA (cerebral vascular accident) I63.9 Elevated WBC count D72.829
[2023-02-03 10:09] VITALS: BP 124/66; PULSE 10; O2SAT 97; BMI 24.8
== END 2023-02-03 11:10 | disposition home or self-care (01) ==
PROVIDERS: PCP Internal Medicine; Visit Provider Internal Medicine
DX: N18.30 Chronic kidney disease, stage 3 unspecified (principal); I63.9 Cerebral infarction, unspecified; N20.0 Calculus of kidney; M10.39 Gout due to renal impairment, multiple sites; I10 Essential (primary) hypertension; D72.829 Elevated white blood cell count, unspecified
CPT/HCPCS: 99214